=== PATIENT | female | born 1985 | race Caucasian/White ===

== ENCOUNTER → 2017-04-02 | Outpatient (CLI) | payer BC, SELFPAY | PROVIDERS: Visit Provider Nurse Practitioner Family | DX: R05 Cough | CPT/HCPCS: 71020; 87486; 87581; 87633; 87798 ==

== ENCOUNTER → 2017-09-04 10:41 | Outpatient (CLI) | payer BC, SELFPAY ==
[2017-09-04 13:44] LABS: Free T4 (Free Thyroxine) 1.17 ng/dl (0.76-1.46); T4 (Thyroxine) 11.6 ug/dl (4.7-13.3); Thyroid Stimulating Hormone 2.15 uIU/ml (0.358-3.740)
[2017-09-05 19:23] LABS: Triiodothyronine (T3) Free 3.5 pg/mL (2.0-4.4)
== END ==
PROVIDERS: PCP Physician Assistant; Visit Provider Internal Medicine Endocrinology, Diabetes & Metabolism
DX: E04.2 Nontoxic multinodular goiter (principal); E03.8 Other specified hypothyroidism; E06.3 Autoimmune thyroiditis
CPT/HCPCS: 36415; 84436; 84439; 84443; 84481

== ENCOUNTER → 2017-10-31 15:05 | Outpatient (CLI) | payer BC, SELFPAY ==
--- NOTE | 2017-10-31 15:15 | CT_ITS ---
CT sinus wo con CLINICAL HISTORY: Chronic sinusitis 3 years ITS.REASON: CHRONIC SINUSISTIS ORDERING PHYSICIAN: Senia Sands PATIENT AGE: 31 years COMPARISON:None TECHNIQUE: Axial, sagittal and coronal images are generated and reviewed. All CT scans at this facility use one or more dose reduction techniques, viz.: automated exposure control; ma/kV adjustment per patient size (including targeted exams where dose is matched to indication; i.e. head) or iterative reconstruction technique. PROCEDURE: IV Contrast: None FINDINGS: Bones: . The coronal images show the maxillary sinuses to be well-developed and clear. The ostiomeatal pathway is patent bilaterally. Frontal, sphenoid and maxillary sinuses are well-developed clear. Ethmoid air cells. -Focal moderate mucosal thickening posterior left ethmoid air cell . Only some scant scant mucosal thickening anterior right ethmoid region . There is mild deviation nasal septum convexity and septal spur to the left. A septal spur measures up to 4 mm. Encroaches upon the left nasal airway. Moderate-generous engorgement nasal turbinates bilaterally. The osseous facial bones are intact. Right and left TMJ intact. Upper C-spine unremarkable. . Orbits unremarkable. IMPRESSION:...... No air-fluid levels.... No prominent findings Only Minor observations paranasal sinuses Moderate mucosal thickening posterior left ethmoid air cell . Maxillary sinuses well-developed and clear..
== END ==
PROVIDERS: Family Provider Physician Assistant; PCP Physician Assistant; Visit Provider Nurse Practitioner
DX: J32.9 Chronic sinusitis, unspecified (principal)
CPT/HCPCS: 70486

== ENCOUNTER → 2018-08-18 08:39 | Outpatient (CLI) | payer BC, SELFPAY ==
--- NOTE | 2018-08-18 08:43 | XR_ITS ---
XR chest 2V HISTORY: ITS.REASON: BRONCHITIS ORDERING PHYSICIAN: Opal Jeronimo APRN PATIENT AGE: 32 years COMPARISON: 04/02/2017 FINDINGS: The cardiomediastinal silhouette and pulmonary vascularity are within normal limits. There is an irregular opacity in the left perihilar region at 12 x 8 mm possibly due to an area of scarring. This may be confirmed with CT. Probably unchanged from 04/02/2017. The remaining lungs are clear. IMPRESSION: Probable scarring in the left perihilar region, no acute finding.
== END ==
PROVIDERS: PCP Nurse Practitioner Family; Visit Provider Nurse Practitioner Family
DX: J20.9 Acute bronchitis, unspecified (principal)
CPT/HCPCS: 71046

== ENCOUNTER → 2018-09-03 10:04 | Outpatient (CLI) | payer BC, SELFPAY ==
--- NOTE | 2018-09-03 10:12 | CT_ITS ---
CT chest wo con HISTORY: ITS.REASON: BRONCHITIS,PULMONARY NODULES,ABN CXR ORDERING PHYSICIAN: Opal Jeronimo APRN PATIENT AGE: 32 years COMPARISON: 08/18/2018, 11/10/2015 Technique: Axial images obtained. Sagittal, and coronal reformatted images are also generated and reviewed. All CT scans at the facility use one or more dose reduction, viz: automated exposure control, ma/kV adjustment per patient size (including targeted exams where dose is matched to indication, i.e. head), or iterative reconstruction technique. FINDINGS: No mediastinal or hilar mass or adenopathy. The most inferior aspect of the right posterior costophrenic sulcus is excluded. Patchy density present in the left upper lobe. There is thickening of the left major fissure superiorly with some postinflammatory fibrotic changes in the left upper lobe. This had a more nodular contour on the previous study but now demonstrates some volume loss. Bronchial thickening is present with apparent occlusion subsegmental bronchus to the posterior aspect of the lingula. Previously noted nodularity along the major fissure has shown improvement.. The remaining lungs are clear. Upper abdominal images are unremarkable. No acute bony findings. IMPRESSION: 1. There are chronic changes in the left upper lobe. There is pleural thickening involving the left major fissure superiorly with some patchy density along the fissure which could be related to postinflammatory fibrotic change. Previously there were nodular areas in this region which have shown improvement 2. There is occlusion of a subsegmental bronchus to the inferior aspect of the lingula. This could be postinflammatory in nature. There is bronchial thickening in this area. Bronchoscopy may confirm the etiology of the occlusion. Follow-up is suggested. One cannot exclude the possibility of neoplasm.
== END ==
PROVIDERS: PCP Nurse Practitioner Family; Visit Provider Nurse Practitioner Family
DX: J20.9 Acute bronchitis, unspecified (principal); R91.8 Other nonspecific abnormal finding of lung field; R93.89 Abnormal findings on diagnostic imaging of other specified body structures
CPT/HCPCS: 71250

== ENCOUNTER → 2018-09-09 11:50 | Outpatient (CLI) | payer BC, SELFPAY ==
--- NOTE | 2018-09-09 11:52 | XR_ITS ---
XR elbow LT 2V HISTORY: Pain following injury ITS.REASON: 2 views ORDERING PHYSICIAN: Adenike Lechuga MD PATIENT AGE: 32 years COMPARISON: None FINDINGS: BONY STRUCTURES: No fracture or dislocation. No lytic or blastic change. Normal mineralization. SOFT TISSUES: Unremarkable. No radio opaque foreign bodies. No displaced fat pad. JOINT SPACE: Well-preserved. No significant arthritic changes evident. IMPRESSION: Negative elbow.
== END ==
PROVIDERS: PCP Nurse Practitioner Family; Visit Provider Orthopaedic Surgery
DX: M25.522 Pain in left elbow (principal)
CPT/HCPCS: 73070

== ENCOUNTER → 2018-09-30 13:02 | Outpatient (CLI) | payer BC, SELFPAY ==
--- NOTE | 2018-09-30 13:08 | XR_ITS ---
EXAM: Left wrist INDICATION: ITS.REASON: left wrist fx ORDERING PHYSICIAN: Adenike Lechuga MD PATIENT AGE: 32 years COMPARISON: 09/07/2018. TECHNIQUE: 3 views. Today's exam shows no fracture lines. The joint space, bone density and alignment of soft tissues are normal. Impression: Normal study. No evidence of acute fracture.
== END ==
PROVIDERS: PCP Nurse Practitioner Family; Visit Provider Orthopaedic Surgery
DX: S62.102A Fracture of unspecified carpal bone, left wrist, initial encounter for closed fracture (principal)
CPT/HCPCS: 73110

== ENCOUNTER 2018-09-30 13:42 | Outpatient (RCR) | payer BC, SELFPAY | END 2018-09-30 14:00 | disposition home or self-care (01) | LOC: OT 13:42 | PROVIDERS: Visit Provider Orthopaedic Surgery | DX: S52.552D Other extraarticular fracture of lower end of left radius, subsequent encounter for closed fracture with routine healing (principal) | CPT/HCPCS: 97763 ==

== ENCOUNTER → 2018-10-16 14:56 | Outpatient (CLI) | payer BC, SELFPAY ==
[2018-10-16 17:23] LABS: Free T4 (Free Thyroxine) 1.16 ng/dl (0.76-1.46); Thyroid Stimulating Hormone 2.31 uIU/ml (0.358-3.740)
[2018-10-18 22:52] LABS: Triiodothyronine (T3) Free 3.6 pg/mL (2.0-4.4)
== END ==
PROVIDERS: Visit Provider Internal Medicine Endocrinology, Diabetes & Metabolism
DX: E03.8 Other specified hypothyroidism (principal)
CPT/HCPCS: 36415; 84439; 84443; 84481

== ENCOUNTER 2019-09-21 18:31 | Emergency (ER) | payer BC, SELFPAY ==
[2019-09-21 18:32] VITALS: BP 157/91; PULSE 98; RESP 25; TEMP 36.7; O2SAT 100; BMI 40.7
--- NOTE | 2019-09-21 18:33 | HMH.EDGENADL ---
ED Disposition Clinical Impression: Peripheral edema Dyspnea Qualifiers: Dyspnea type: shortness of breath Qualified Code(s): R06.02 - Shortness of breath Disposition: Home, Self-Care Condition on Discharge: Good Instructions: DI for Shortness of Breath, DI for Peripheral Edema -- Bilateral Additional Instructions: Follow-up with your primary care provider, call tomorrow to make appointment Additional instructions for SHORTNESS OF BREATH: See your physician as soon as possible for further evaluation. Return immediately if worsening shortness of breath or if vomiting, chest pain, fever, coughing of blood, or passing out. Referrals: Provider,Referral, [Primary Care Provider] - - Critical Care Critical Care Time: No Attestation: On , the high probability of a clinically significant, sudden or life threatening deterioration of the following system(s) required my full and direct attention, intervention and personal management. The time I documented below is in addition to time spent performing reported procedures but includes the following listed in this critical care notation. Medical Decision Making - Medical Records Medical records reviewed: Yes: I reviewed the patient's medical records. - Michi Inquiry Pt receiving controlled substance: No Vital Signs: 09/21/19 18:32 09/21/19 19:09 Temperature 98.1 F Temperature Source Oral Pulse Rate [Right] 98 H 84 Respiratory Rate 25 H 18 Blood Pressure [Right Arm] 157/91 H 163/87 H Blood Pressure Mean [Right Arm] 113 112 02 Sat by Pulse Oximetry 100 100 Oxygen Delivery Method Room Air - Lab Data Lab results reviewed: Yes: I reviewed the patient's lab results. Lab Results 09/21/19 18:35: WBC 8.1, RBC 4.93, Hgb 13.8, Hct 39.6, MCV 80.3 L, MCH 28.0, MCHC 34.9, RDW 14.9, Plt Count 233, MPV 9.3, Neut % (Auto) 65.0, Lymph % (Auto) 29.0, [place] % (Auto) 4.4, Eos % (Auto) 1.3, Baso % (Auto) 0.3, Neut # (Auto) 5.3, Lymph # (Auto) 2.4, [place] # (Auto) 0.4, Eos # (Auto) 0.1, Baso # (Auto) 0.0 09/21/19 18:35: Sodium 138, Potassium 3.6, Chloride 98, Carbon Dioxide 29, Anion Gap 14.6, BUN 19 H, Creatinine 0.70, Estimated Creat Clear 211, Estimated GFR 96, Est GFR ( Amer) 116, Glucose 106 H, Calcium 9.8, Total Bilirubin 0.3, AST 31, ALT 28, Alkaline Phosphatase 105, Troponin I < 0.01, NT-Pro-B Natriuret Pep 63.1, Total Protein 8.4 H, Albumin 4.9, Globulin 3.5 H, Albumin/Globulin Ratio 1.4, TSH 3.28, Thyroxine (T4) 14.2 H 09/21/19 18:46: Urine Color Yellow, Urine Appearance Clear, Urine pH 6.0, Ur Specific [place] 1.025, Urine Protein Negative, Urine Glucose (UA) Negative, Urine Ketones Negative, Urine Blood Trace-l, Urine Nitrate Negative, Urine Bilirubin Negative, Urine Urobilinogen 0.2, Ur Leukocyte Esterase Negative Result diagrams: 09/21/19 18:35 09/21/19 18:35 Orders (Tests/Meds): ORDERS Category Date Time Status XR chest 2V Stat Exams 09/21/19 18:39 Taken Troponin I Q3H Lab 09/21/19 21:45 Ordered Troponin I Q3H Lab 09/22/19 00:45 Ordered Urinalysis and Microscopic Stat Lab 09/21/19 18:46 Results ECG Request by /Magal[facility] Stat Y 09/21/19 18:39 Ordered - ECG Data Tracing #1 EKG interpreted by Christopher Mohan MD: Rhythm: sinus Rate: 91 [place]: normal Ectopy: none Conduction: normal ST Segment Changes: none T Wave Changes: none Q Waves: none No evidence of acute ischemia or injury Normal electrocardiogram General Adult HPI - General Chief complaint: Shortness of Breath/Dyspnea Stated complaint: sob Time Seen by Provider: 09/21/19 18:33 - History of Present Illness HPI narrative: Complains of swelling of her legs, heaviness in the chest and shortness of breath. States that she has had problems with peripheral edema of both legs for a couple of years. Initially put on Lasix 20 mg, which was then increased to 40 mg, but she says it no longer has any effect. For the past 2 weeks she has had increased edema. She says sh
--- NOTE | 2019-09-21 18:39 | ECG_ITS ---
APPROVED REPORT Exam: Resting ECG HR:91 bpm ECG Measurements Heart Rate 91 AXES [place] 156 P 66 QRSd 80 QRS 9 QT 376 T 18 QTc 462 <Conclusion> Normal sinus rhythm Normal ECG Electronically signed by : Nando Hawkins, 09/22/2019 17:08:59
--- NOTE | 2019-09-21 18:39 | XR_ITS ---
PROCEDURE: XR CHEST 2V CLINICAL HISTORY: soa COMPARISON: CXR CHEST(2 VIEWS-NOT PORTABLE) from 11/06/2015 CXR CHEST(2 VIEWS-NOT PORTABLE) from 07/01/2016 CXR CHEST(2 VIEWS-NOT PORTABLE) from 04/02/[address] chest wo con from 09/03/2018 FINDINGS: The cardiomediastinal silhouette and pulmonary vascularity are within normal limits. The lungs are clear without infiltrates, suspicious nodules, or pleural effusions. No acute bony abnormalities. IMPRESSION: No acute findings. Dictated by: Dr. Cirilo Fuentes MD 09/22/2019 07:[address] Cirilo Fuentes MD in [place] 09/22/2019 07:14
[2019-09-21 18:45] LABS: Basophils % 0.3 % (0.1-2.0); Eosinophils # 0.1 K/mm3 (0.0-0.4); Eosinophils % 1.3 % (0.1-12.0); Hematocrit 39.6 % (37.0-47.0); Hemoglobin 13.8 g/dL (12.2-16.2); Lymphocytes # 2.4 K/mm3 (0.7-4.5); Mean Corpuscular HGB Conc 34.9 g/dL (31.8-35.4); Mean Corpuscular Volume 80.3 fl (81-99); Mean Platelet Volume 9.3 fl (7.4-10.4); Monocytes # 0.4 K/mm3 (0.1-1.0); Monocytes % 4.4 % (1.7-9.3); Neutrophils # 5.3 K/mm3 (1.8-7.8); Platelet Count 233 K/mm3 (142-424); Red Blood Count 4.93 M/mm3 (4.20-5.40); Red Cell Distribution Width 14.9 % (11.5-17.5); White Blood Count 8.1 K/mm3 (4.8-10.8)
[2019-09-21 18:50] LABS: Alanine Aminotransferase 28 U/L (12-78); Albumin Level 4.9 g/dl (3.5-5.0); Albumin/Globulin Ratio 1.4 (1.1-1.8); Alkaline Phosphatase 105 U/L (38-126); Anion Gap 14.6 mEq/L (5-15); Aspartate Amino Transferase 31 U/L (14-36); Bilirubin,Total 0.3 mg/dl (0.2-1.3); Blood Urea Nitrogen 19 mg/dl (7-17); Calcium 9.8 mg/dl (8.4-10.2); Carbon Dioxide 29 mmol/L (22.0-30.0); Chloride 98 mmol/L (98-107); Creatinine Clearance Estimated 211 mL/min (50-200); Estimated Glomerular Filt Rate 96 ml/min (>60); GFR (African American) 116 ML/MIN (>60); Globulin 3.5 g/dL (1.3-3.2); Glucose 106 mg/dl (74-100); Potassium 3.6 mmoL/L (3.5-5.1); Sodium 138 mmol/L (136-145); Total Protein,Serum 8.4 g/dl (6.3-8.2)
[2019-09-21 19:04] LABS: NT Pro Brain Natriuretic Pep. 63.1 pg/mL (0-125)
[2019-09-21 19:05] LABS: Microscopic, Urine URINE MICROSCOPIC (MICROSCOPIC)
[2019-09-21 19:08] LABS: T4 (Thyroxine) 14.2 ug/dl (5.53-11.0)
[2019-09-21 19:09] VITALS: BP 163/87; PULSE 84; RESP 18; O2SAT 100
[2019-09-21 19:12] LABS: Troponin I < 0.01 ng/ml (0.00-0.034)
[2019-09-21 19:14] LABS: Appearance,Urine CLEAR (Clear); Bilirubin,Urine Negative (Negative); Blood, Urine TRACE-L (Negative); Color,Urine YELLOW (Yellow); Glucose,Urine (UA) Negative (Negative); Ketones,Urine Negative (Negative); Leukocyte Esterase,Urine Negative (Negative); Nitrate,Urine Negative (Negative); Protein,Urine Negative (Negative); Specific Gravity, Urine 1.025 (1.005-1.030); Urobilinogen,Urine 0.2 EU/dl (0.2)
[2019-09-21 19:22] LABS: Thyroid Stimulating Hormone 3.28 uIU/mL (0.465-4.68)
[2019-09-21 19:33] LABS: Amorphous Sediment,Urine Trace /lpf; Squamous Epithelial Cell,Urine Occasional #/hpf (0-5); WBC,Urine Occasional #/hpf (0-3)
[2019-09-21 19:41] VITALS: BP 147/77; PULSE 84; RESP 16; TEMP 36.7; O2SAT 99
== END 2019-09-21 19:42 | disposition home or self-care (01) ==
PROVIDERS: Emergency Provider Emergency Medicine; PCP Nurse Practitioner Family
DX: R60.9 Edema, unspecified (principal); R06.02 Shortness of breath; E03.9 Hypothyroidism, unspecified; J45.909 Unspecified asthma, uncomplicated; Z79.899 Other long term (current) drug therapy
CPT/HCPCS: 71046; 80053; 81001; 83880; 84436; 84443; 84484; 85025; 93005; 99284

== ENCOUNTER → 2019-10-14 17:47 | Outpatient (CLI) | payer BC, SELFPAY ==
[2019-10-14 19:39] LABS: Free T4 (Free Thyroxine) 1.22 ng/dl (0.78-2.19)
[2019-10-14 19:52] LABS: Thyroid Stimulating Hormone 3.49 uIU/mL (0.465-4.68)
[2019-10-16 17:03] LABS: Triiodothyronine (T3) Free 3.2 pg/mL (2.0-4.4)
== END ==
PROVIDERS: Visit Provider Internal Medicine Endocrinology, Diabetes & Metabolism
DX: E04.2 Nontoxic multinodular goiter (principal); E03.8 Other specified hypothyroidism
CPT/HCPCS: 36415; 84439; 84443; 84481

== ENCOUNTER 2020-04-24 13:36 | Emergency (ER) | payer BC, SELFPAY ==
[2020-04-24 13:40] VITALS: BP 167/94; PULSE 91; RESP 14; TEMP 36.3; O2SAT 99; BMI 39.1
--- NOTE | 2020-04-24 14:14 | HMH.EDUTC ---
[facility] Disposition Clinical Impression: Encounter for laboratory testing for COVID-19 virus Sinusitis Qualifiers: Sinusitis location: unspecified location Chronicity: unspecified Qualified Code(s): J32.9 - Chronic sinusitis, unspecified Disposition: Home, Self-Care Condition on Discharge: Good Instructions: Sinusitis, DI for Sinusitis, DI for COVID-19 (Suspected or Confirmed ), Coronavirus Disease 2019, Preventing the Spread of Coronavirus Discharge Instructions Additional Instructions: *Monitor Temp, Over the counter Motrin or Tylenol as directed/as needed Tylenol every 4 hours and Motrin every 6 hours (as long as your family doctor has told you that you can take it) for fever or pain. and straight to ER if unable to lower temp less than 101.0 after medication given *Warm salt water gargles may help to soothe the throat *Throat Lozenges *Warm fluids like tea with honey may help to soothe the throat *Sleep elevated *Humidifier/Vaporizer Follow up IMMEDIATELY for new or worsening symptoms or no Noticeable improvement over the next 48-72 hours. 911 for difficulty breathing or swallowing You were tested for today for COVID19 your test result should be back in the next 24-48 hours, you may call to the [facility] to see if your test results are back in the next 48 hours [phone] [facility] hours are 9am-9pm You was given a handout with instructions for Self Quarantine and Self isolation for while you wait on test results and what to do if they are positive If you are positive the Health Dept will be contacting you also Prescriptions: Azithromycin [Z-Joseluis 250mg Tab] 250 mg PO DIRECTED #6 tab Transmission Status: Pending to [id number] Referrals: Opal Jeronimo APRN [Primary Care Provider] - As needed Forms: Work/School Release Time of Disposition: 14:16 Medical Decision Making - Michi Inquiry Pt receiving controlled substance: No Michi was queried for this patient: No Vital Signs: 04/24/20 13:40 Temperature 97.3 F L Temperature Source Oral Pulse Rate [Right Brachial] 91 H Respiratory Rate 14 Blood Pressure [Right Arm] 167/94 H Blood Pressure Mean [Right Arm] 118 Blood Pressure Source [Right Arm] Automatic Cuff Blood Pressure Position [Right Arm] Sitting 02 Sat by Pulse Oximetry 99 Oxygen Delivery Method Room Air Orders (Tests/Meds): ORDERS Category Date Time Status Covid-19 Nasal PCR Sendout P&C Routine Lab 04/24/20 13:50 Received Medical Decision Narrative: Patient state that she has taken azithromycin before without reactions or complications [facility] HPI - General Stated complaint: covid symptoms Time Seen by Provider: 04/24/20 14:14 Mode of Arrival: Ambulatory Source of Information: Patient Limitations: No Limitations Description of Symptoms (Recalled from Triage Doc. by RN): PATEINT C/O TIGHTNESS IN CHEST, BODY ACHES, CHILLS, SINUS PAIN AND PRESSURE SINCE . REPORTS THAT HER TESTED POSITIVE FOR COVID HEENT Symptoms (Recalled from RN notes): No Resp Symptoms (Recalled from RN notes): Yes Skin Symptoms (Recalled from RN notes): No MS Symptoms (Recalled from RN notes): No Functional Status (Recalled from RN notes): WNL - History of Present Illness Provider Complaint: Patient state that her recently tested positive for COVID States that she has been having cough, sore throat sinus pain and pressure along with body aches, chills and fever States that today she felt worse so she came in - Related Data Home Medications Medication Instructions Recorded Confirmed Furosemide [Furosemide 20mg Tab*] 20 mg PO DAILY 09/05/17 09/21/19 Levothyroxine Sodium [Synthroid 50 mcg PO DAILY 09/05/17 09/21/19 50mcg (0.05mg) tab] Escitalopram Oxalate [Lexapro] 10 mg PO DAILY 09/21/19 09/21/19 Levocetirizine Dihydrochloride 5 mg PO DAILY 09/21/19 09/21/19 [Xyzal] Montelukast Sodium [Singulair 10mg 10 mg PO PM 09/21/19 09/21/19 tablet] hydrOXYzine pamoate [[place]
[2020-04-24 14:22] VITALS: BP 167/94; PULSE 91; RESP 14; TEMP 36.3; O2SAT 99
[2020-04-26 10:15] LABS: Covid-19 Nasal PCR Sendout P&C POSITIVE
--- NOTE | 2020-04-26 10:44 | PC.NURSE ---
notified positive result
== END 2020-04-24 14:24 | disposition home or self-care (01) ==
PROVIDERS: Emergency Provider Nurse Practitioner; PCP Nurse Practitioner Family
DX: U07.1 COVID-19 (principal); J32.9 Chronic sinusitis, unspecified; J45.909 Unspecified asthma, uncomplicated
CPT/HCPCS: 99202; G0463; U0004

== ENCOUNTER 2020-05-02 12:47 | Emergency (ER) | payer BC, SELFPAY ==
[2020-05-02 12:47] VITALS: BP 135/79; PULSE 98; RESP 16; TEMP 37.2; O2SAT 94; BMI 39.1
--- NOTE | 2020-05-02 13:41 | XR_ITS ---
PROCEDURE: XR CHEST PORTABLE CLINICAL HISTORY: Covid COMPARISON: CR CXR CHEST(2 VIEWS-NOT PORTABLE) from 07/01/2016 CR CXR CHEST(2 VIEWS-NOT PORTABLE) from 04/02/[address] chest wo con from 09/03/2018 CR XR CHEST 2V from 09/21/2019 FINDINGS: The cardiomediastinal silhouette and pulmonary vascularity are within normal limits. The lungs are clear without infiltrates, suspicious nodules, or pleural effusions. No acute bony abnormalities. IMPRESSION: No acute findings. Dictated by: Renato Blanchard MD 05/02/2020 14:24 Renato Blanchard MD in [place] 05/02/2020 14:24
--- NOTE | 2020-05-02 13:50 | HMH.EDGENADL ---
ED Disposition Clinical Impression: COVID-19 virus infection Disposition: Home, Self-Care Condition on Discharge: Fair Instructions: DI for COVID-19 (Suspected or Confirmed ) Additional Instructions: Outpatient monoclonal antibody therapy as scheduled. Return to the emergency department if worsening shortness of breath, particularly if pulse ox is less than 94% at rest. Referrals: Opal Jeronimo APRN [Primary Care Provider] - - Critical Care Critical Care Time: No Attestation: On 05/02/20, the high probability of a clinically significant, sudden or life threatening deterioration of the following system(s) required my full and direct attention, intervention and personal management. The time I documented below is in addition to time spent performing reported procedures but includes the following listed in this critical care notation. Medical Decision Making - Michi Inquiry Pt receiving controlled substance: No Vital Signs: 05/02/20 12:47 Temperature 98.9 F Temperature Source Oral Pulse Rate [Right] 98 H Respiratory Rate 16 Blood Pressure [Right Arm] 135/79 Blood Pressure Mean [Right Arm] 97 Blood Pressure Source [Right Arm] Automatic Cuff Blood Pressure Position [Right Arm] Sitting 02 Sat by Pulse Oximetry 94 L Oxygen Delivery Method Room Air - Lab Data Lab Results 05/02/20 13:09: WBC 7.1, RBC 5.20, Hgb 14.4, Hct 43.4, MCV 83.6, MCH 27.7, MCHC 33.1, RDW 15.5, Plt Count 203, MPV 9.0, Neut % (Auto) 70.4, Lymph % (Auto) 23.7, [place] % (Auto) 4.2, Eos % (Auto) 1.2, Baso % (Auto) 0.5, Neut # (Auto) 5.0, Lymph # (Auto) 1.7, [place] # (Auto) 0.3, Eos # (Auto) 0.1, Baso # (Auto) 0.0 05/02/20 13:09: Sodium 138, Potassium 4.4, Chloride 100, Carbon Dioxide 30, Anion Gap 12.4, BUN 14, Creatinine 0.60, Estimated GFR 114, Est GFR ( Amer) 138, Glucose 92, Calcium 9.4, Total Bilirubin 0.5, AST 45 H, ALT 42, Alkaline Phosphatase 82, Troponin I < 0.01, Total Protein 7.9, Albumin 4.4, Globulin 3.5 H, Albumin/Globulin Ratio 1.3 05/02/20 13:09: Lactate 1.4 Result diagrams: 05/02/20 13:09 05/02/20 13:09 Orders (Tests/Meds): ORDERS Category Date Time Status Troponin I Q3H Lab 05/02/20 16:45 Ordered Troponin I Q3H Lab 05/02/20 19:45 Ordered Blood Culture Stat Micro 05/02/20 13:09 Received - Radiology Data #1 Image(s): Chest Image Reviewed: Yes I have reviewed radiologist's interpretation PROCEDURE: XR CHEST PORTABLE CLINICAL HISTORY: Covid COMPARISON: CR CXR CHEST(2 VIEWS-NOT PORTABLE) from 07/01/2016 CR CXR CHEST(2 VIEWS-NOT PORTABLE) from 04/02/[address] chest wo con from 09/03/2018 CR XR CHEST 2V from 09/21/2019 FINDINGS: The cardiomediastinal silhouette and pulmonary vascularity are within normal limits. The lungs are clear without infiltrates, suspicious nodules, or pleural effusions. No acute bony abnormalities. IMPRESSION: No acute findings. Dictated by: Rneato Blanchard MD 05/02/2020 14:24 Renato Blanchard MD in [place] 05/02/2020 14:24 Medical Decision Narrative: Pulse ox 98% on room air with a clear chest x-ray. She does not meet criteria for admission at this time. She meets criteria for monoclonal antibody therapy based on BMI. She says she is interested in this and Liz will talk to her about scheduling it. General Adult HPI - General Stated complaint: covid postive, soa, chest tightness Time Seen by Provider: 05/02/20 13:51 - History of Present Illness HPI narrative: The patient has COVID-19. She has been symptomatic for 10 days, positive test was obtained 8 days ago. She says she caught it from her who is currently at home on oxygen for the past week after hospitalization for 1 day. He has been symptomatic approximately 21 days. She says that she feels like she is getting worse instead of better. She is weak. She says that she is starting to get short of breath at times. She says her oxygen saturation is good while
[2020-05-02 13:57] LABS: Basophils % 0.5 % (0.1-2.0); Eosinophils # 0.1 K/mm3 (0.0-0.4); Eosinophils % 1.2 % (0.1-12.0); Hematocrit 43.4 % (37.0-47.0); Hemoglobin 14.4 g/dL (12.2-16.2); Lymphocytes # 1.7 K/mm3 (0.7-4.5); Lymphocytes % 23.7 % (10-50); Mean Corpuscular HGB Conc 33.1 g/dL (31.8-35.4); Mean Corpuscular Hemoglobin 27.7 pg (27.0-31.2); Mean Corpuscular Volume 83.6 fl (81-99); Monocytes # 0.3 K/mm3 (0.1-1.0); Monocytes % 4.2 % (1.7-9.3); Neutrophils % 70.4 % (37.0-80.0); Platelet Count 203 K/mm3 (142-424); Red Cell Distribution Width 15.5 % (11.5-17.5); White Blood Count 7.1 K/mm3 (4.8-10.8)
[2020-05-02 14:00] LABS: Alanine Aminotransferase 42 U/L (12-78); Albumin Level 4.4 g/dl (3.5-5.0); Albumin/Globulin Ratio 1.3 (1.1-1.8); Alkaline Phosphatase 82 U/L (38-126); Anion Gap 12.4 mEq/L (5-15); Aspartate Amino Transferase 45 U/L (14-36); Bilirubin,Total 0.5 mg/dl (0.2-1.3); Blood Urea Nitrogen 14 mg/dl (7-17); Calcium 9.4 mg/dl (8.4-10.2); Carbon Dioxide 30 mmol/L (22.0-30.0); Chloride 100 mmol/L (98-107); Estimated Glomerular Filt Rate 114 ml/min (>60); GFR (African American) 138 ML/MIN (>60); Globulin 3.5 g/dL (1.3-3.2); Glucose 92 mg/dl (74-100); Potassium 4.4 mmoL/L (3.5-5.1); Sodium 138 mmol/L (136-145); Total Protein,Serum 7.9 g/dl (6.3-8.2)
[2020-05-02 14:13] LABS: Troponin I < 0.01 ng/ml (0.00-0.034)
[2020-05-02 14:31] LABS: Lactic Acid 1.4 mmol/L (0.7-2.1)
[2020-05-02 16:09] VITALS: BP 124/70; PULSE 95; RESP 16; TEMP 36.9; O2SAT 98
== END 2020-05-02 16:19 | disposition home or self-care (01) ==
PROVIDERS: Emergency Provider Emergency Medicine; PCP Nurse Practitioner Family
DX: U07.1 COVID-19 (principal)
CPT/HCPCS: 71045; 80053; 83605; 84484; 85025; 87040; 99283

== ENCOUNTER 2020-05-05 07:54 | Outpatient (CLI) | payer BC, SELFPAY ==
[2020-05-05] VITALS (9 sets, daily range): BP systolic 114–151; BP diastolic 75–96; PULSE 63–73; RESP 16–20; TEMP 36.6–37.1; O2SAT 95–100
--- NOTE | 2020-05-05 11:09 | PC.NURSE ---
Pt denies any issues at this time and tolerated infusion well at this time.
== END 2020-05-05 10:55 | disposition home or self-care (01) ==
PROVIDERS: PCP Nurse Practitioner Family; Visit Provider Emergency Medicine
DX: U07.1 COVID-19 (principal)
CPT/HCPCS: 96365

== ENCOUNTER → 2020-05-22 11:04 | Outpatient (CLI) | payer BC, SELFPAY ==
--- NOTE | 2020-05-22 12:07 | CT_ITS ---
PROCEDURE: CT ANGIO CHEST CLINCIAL INDICATION: BRONCHITIS, NOT SPECIFIED ACUTE OR CHRONIC COVID April 2020, shortness of air, chest, COMPARISON: CT CHESTWO CT chest wo con from 09/03/2018 TECHNIQUE: IV Contrast: 70ML Isovue 370 Axial images obtained with sagittal and coronal reformats. All CT scans at the facility use one or more dose reduction, viz: automated exposure control, ma/kV adjustment per patient size (including targeted exams where dose is matched to indication, i.e. head), or iterative reconstruction technique. FINDINGS: Is incidentally noted pleural parenchymal scarring and calcification along the left major fissure. The airways are clear. Reported occluded lingular bronchus on prior study is widely patent on the current study. There is no infiltrate. There are no suspicious lung nodules. There is no pleural effusion. There is no suspicious thoracic adenopathy. There is no pulmonary embolus or other vascular abnormality. There is no pericardial effusion. There is severe low-density of the liver. This likely is secondary to diffuse fatty infiltration which is a nonspecific finding with multiple etiologies including dietary causes. There is moderate splenic enlargement for patient of this age. Less likely, the hepatic appearance could be caused by edema such as that related to early hepatitis. There is no adjacent edema or surrounding stranding surrounding fat which would support a diagnosis of acute hepatitis. Visualized portions of the solid abdominal organs are otherwise unremarkable. Visualized portions of the GI tract are unremarkable. There is a circumaortic left renal vein. This could be a source of left renal flank pain and hematuria. No structures are unremarkable IMPRESSION: On current study the lungs are clear and airways are clear. There is severe fatty infiltration of the liver and associated splenomegaly. See further description above. There is a circumaortic left renal vein which can be a source of left flank pain and hematuria. Dictated by: Whitley Monahan 05/22/2020 18:32 Whitley Monahan in [place] 05/22/2020 18:32
== END ==
PROVIDERS: PCP Nurse Practitioner Family; Visit Provider Nurse Practitioner Family
DX: J40 Bronchitis, not specified as acute or chronic (principal); Z86.16 Personal history of COVID-19; R06.02 Shortness of breath
CPT/HCPCS: 71275; Q9967

== ENCOUNTER → 2020-05-26 08:35 | Outpatient (CLI) | payer BC, SELFPAY ==
[2020-05-26 09:26] LABS: Basophils # 0.1 K/mm3 (0-0.2); Basophils % 0.5 % (0.1-2.0); Eosinophils # 0.1 K/mm3 (0.0-0.4); Eosinophils % 0.8 % (0.1-12.0); Hematocrit 43.3 % (37.0-47.0); Hemoglobin 14.1 g/dL (12.2-16.2); Lymphocytes # 2.4 K/mm3 (0.7-4.5); Lymphocytes % 25.4 % (10-50); Mean Corpuscular HGB Conc 32.5 g/dL (31.8-35.4); Mean Corpuscular Hemoglobin 27.3 pg (27.0-31.2); Mean Corpuscular Volume 84.2 fl (81-99); Monocytes # 0.4 K/mm3 (0.1-1.0); Monocytes % 4.2 % (1.7-9.3); Neutrophils # 6.6 K/mm3 (1.8-7.8); Platelet Count 226 K/mm3 (142-424); Red Blood Count 5.14 M/mm3 (4.20-5.40); Red Cell Distribution Width 15.2 % (11.5-17.5); White Blood Count 9.5 K/mm3 (4.8-10.8)
[2020-05-26 09:52] LABS: INR 0.95 (0.9-1.1); Prothrombin Time 10.6 seconds (9.4-11.8)
[2020-05-26 09:53] LABS: Alanine Aminotransferase 38 U/L (12-78); Alkaline Phosphatase 88 U/L (38-126); Aspartate Amino Transferase 32 U/L (14-36); Bilirubin,Direct 0.1 mg/dl (0.0-0.4); Bilirubin,Indirect 0.4 mg/dL (0.0-0.9); Bilirubin,Total 0.5 mg/dl (0.2-1.3); Bilirubin,Unconjugated 0.5 mg/dL (0.0-1.1); Iron 90 ug/dL (37-170)
[2020-05-26 09:54] LABS: Albumin Level 4.5 g/dl (3.5-5.0); Total Protein,Serum 7.6 g/dl (6.3-8.2)
[2020-05-26 10:03] LABS: Total Iron Binding Capacity 351 ug/dL (265-497)
[2020-05-26 10:10] LABS: Hemoglobin A1C 5.2 % (4.0-6.0); Triiodothryronine (T3) Uptake 27 % (23.5-40.5)
[2020-05-26 10:11] LABS: 25-OH Vitamin D, Total 14.3 ng/mL (30-100); Free Thyroxine Index 3.3 ug/dL (5.93-13.13); T4 (Thyroxine) 12.3 ug/dl (5.53-11.0)
[2020-05-26 10:25] LABS: Thyroid Stimulating Hormone 4.45 uIU/mL (0.465-4.68)
[2020-05-26 10:46] LABS: Vitamin B12 279 pg/mL (239-931)
[2020-05-27 16:12] LABS: Hep A Ab, IgM Negative (Negative); Hepatitis B Core Antibody IgM Negative (Negative); Hepatitis B Surface Antigen Negative (Negative)
[2020-05-27 16:23] LABS: Folate 4.72 ng/mL
[2020-05-28 01:06] LABS: Hepatitis C Antibody <0.1 s/co ratio (0.0-0.9)
== END ==
PROVIDERS: Visit Provider Nurse Practitioner Family
DX: K76.0 Fatty (change of) liver, not elsewhere classified (principal); R16.1 Splenomegaly, not elsewhere classified; R53.82 Chronic fatigue, unspecified; Z86.2 Personal history of diseases of the blood and blood-forming organs and certain disorders involving the immune mechanism
CPT/HCPCS: 36415; 80074; 80076; 82306; 82607; 82746; 83036; 83540; 83550; 84436; 84443; 84479; 85025; 85610

== ENCOUNTER 2020-06-13 11:10 | Emergency (ER) | payer BC, SELFPAY ==
[2020-06-13] VITALS (9 sets, daily range): BP systolic 134–150; BP diastolic 70–92; PULSE 77–90; RESP 16–20; TEMP 36.6–36.7; O2SAT 98–100; BMI 39.1
--- NOTE | 2020-06-13 11:06 | ECG_ITS ---
APPROVED REPORT Exam: Resting ECG HR:86 bpm ECG Measurements Heart Rate 86 AXES [place] 158 P 48 QRSd 84 QRS 0 QT 380 T 15 QTc 454 Conclusion Normal sinus rhythm Left atrial abnormality Borderline ECG Electronically signed by : Nando Hawkins, 06/13/2020 14:46:28
--- NOTE | 2020-06-13 11:20 | XR_ITS ---
PROCEDURE: XR CHEST 2V CLINICAL HISTORY: palpitations COMPARISON: CR CXR CHEST(2 VIEWS-NOT PORTABLE) from 04/02/2017 CR XR CHEST 2V from 09/21/2019 CR XR CHEST PORTABLE from 05/02/[address] ANGIO CHEST from 05/22/2020 FINDINGS: The cardiomediastinal silhouette and pulmonary vascularity are within normal limits. The lungs are clear without infiltrates, suspicious nodules, or pleural effusions. Postsurgical changes on the left with suture line in the left midlung. No acute bony findings. IMPRESSION: No acute findings. Dictated by: Renato Blanchard MD 06/13/2020 13:11 Renato Blanchard MD in [place] 06/13/2020 13:11
--- NOTE | 2020-06-13 11:30 | HMH.EDCP ---
ED Disposition Clinical Impression: Atypical chest pain, History of COVID-19 Dyspnea Qualifiers: Dyspnea type: unspecified Qualified Code(s): R06.00 - Dyspnea, unspecified Disposition: Home, Self-Care Condition on Discharge: Fair Instructions: DI for Shortness of Breath, DI for COVID-19 (Suspected or Confirmed ) Additional Instructions: You have been evaluated for shortness of breath. Possibly due to recent Covid infection. Your inflammatory markers are elevated. Please follow-up with your family life counselor as well as cardiology jaquelin results of echocardiogram. Return to the emergency department for any new or worsening symptoms. Referrals: PCP,No [Non-Staff] - Westley Vergara MD [Staff Physician] - Time of Disposition: 15:40 - Critical Care Critical Care Time: No Attestation: On 06/13/20, the high probability of a clinically significant, sudden or life threatening deterioration of the following system(s) required my full and direct attention, intervention and personal management. The time I documented below is in addition to time spent performing reported procedures but includes the following listed in this critical care notation. Medical Decision Making - Medical Records Medical records reviewed: Yes: I reviewed the patient's medical records. - Michi Inquiry Pt receiving controlled substance: No Vital Signs: 06/13/20 11:10 06/13/20 11:31 06/13/20 11:44 Temperature 98.0 F Temperature Source Oral Pulse Rate [Right Radial] 90 79 77 Respiratory Rate 16 Blood Pressure [Right Arm] 144/90 H 140/82 136/81 Blood Pressure Mean [Right Arm] 108 101 99 Blood Pressure Source [Right Arm] Automatic Cuff Automatic Cuff Automatic Cuff Blood Pressure Position [Right Arm] Sitting Sitting Sitting 02 Sat by Pulse Oximetry 99 99 100 Oxygen Delivery Method Room Air Room Air Room Air 06/13/20 12:10 06/13/20 13:09 06/13/20 15:00 Temperature Temperature Source Pulse Rate [Right Radial] 85 84 84 Respiratory Rate Blood Pressure [Right Arm] 150/91 H 143/87 H 140/92 H Blood Pressure Mean [Right Arm] 110 105 108 Blood Pressure Source [Right Arm] Automatic Cuff Automatic Cuff Automatic Cuff Blood Pressure Position [Right Arm] Sitting Sitting Sitting 02 Sat by Pulse Oximetry 100 100 100 Oxygen Delivery Method Room Air Room Air Room Air 06/13/20 15:30 Temperature Temperature Source Pulse Rate [Right Radial] 81 Respiratory Rate Blood Pressure [Right Arm] 134/70 Blood Pressure Mean [Right Arm] 91 Blood Pressure Source [Right Arm] Automatic Cuff Blood Pressure Position [Right Arm] Sitting 02 Sat by Pulse Oximetry 99 Oxygen Delivery Method Room Air - Lab Data Lab Results 06/13/20 11:15: WBC 6.8, RBC 5.04, Hgb 13.9, Hct 42.4, MCV 84.1, MCH 27.6, MCHC 32.8, RDW 15.1, Plt Count 222, MPV 9.1, Neut % (Auto) 68.4, Lymph % (Auto) 26.0, [place] % (Auto) 3.8, Eos % (Auto) 1.1, Baso % (Auto) 0.7, Neut # (Auto) 4.7, Lymph # (Auto) 1.8, [place] # (Auto) 0.3, Eos # (Auto) 0.1, Baso # (Auto) 0.1 06/13/20 11:15: Sodium 139, Potassium 4.5, Chloride 104, Carbon Dioxide 29, Anion Gap 10.5, BUN 13, Creatinine 0.60, Estimated Creat Clear 234, Estimated GFR 114, Est GFR ( Amer) 138, Glucose 106 H, Calcium 9.6, Troponin I < 0.01 06/13/20 11:15: D-Dimer 0.89 H 06/13/20 11:15: Ferritin 25.4, C-Reactive Protein 11.2 H 06/13/20 11:29: VBG pH 7.34, VBG pCO2 45.4, VBG pO2 36.0, VBG HCO3 24.2, VBG Total CO2 25.6, VBG O2 Saturation 68.4, VBG Base Excess -1.5 06/13/20 12:45: Urine HCG, Qual Negative Result diagrams: 06/13/20 11:15 06/13/20 11:15 Orders (Tests/Meds): ED MEDICATIONS Discontinued Medications Generic Name Dose Route Start Last Admin Trade Name Freq PRN Reason Stop Dose Admin Aspirin 325 mg 06/13/20 11:35 06/13/20 11:49 Aspirin 325mg Tablet PO 06/13/20 11:36 325 mg ONCE ONE Administration Iopamidol 70 ml 06/13/20 13:59 06/13/20 14:00 Iopamidol-370 (76%);100ml Bottle IV 06/13/20 14:00 70
[2020-06-13 11:31] LABS: Basophils # 0.1 K/mm3 (0-0.2); Basophils % 0.7 % (0.1-2.0); Eosinophils # 0.1 K/mm3 (0.0-0.4); Eosinophils % 1.1 % (0.1-12.0); Hematocrit 42.4 % (37.0-47.0); Hemoglobin 13.9 g/dL (12.2-16.2); Lymphocytes # 1.8 K/mm3 (0.7-4.5); Mean Corpuscular HGB Conc 32.8 g/dL (31.8-35.4); Mean Corpuscular Hemoglobin 27.6 pg (27.0-31.2); Mean Corpuscular Volume 84.1 fl (81-99); Mean Platelet Volume 9.1 fl (7.4-10.4); Monocytes # 0.3 K/mm3 (0.1-1.0); Monocytes % 3.8 % (1.7-9.3); Neutrophils # 4.7 K/mm3 (1.8-7.8); Neutrophils % 68.4 % (37.0-80.0); Platelet Count 222 K/mm3 (142-424); Red Blood Count 5.04 M/mm3 (4.20-5.40); Red Cell Distribution Width 15.1 % (11.5-17.5); White Blood Count 6.8 K/mm3 (4.8-10.8)
[2020-06-13 11:39] LABS: Chloride 104 mmol/L (98-107); Potassium 4.5 mmoL/L (3.5-5.1); Sodium 139 mmol/L (136-145)
[2020-06-13 11:42] LABS: Anion Gap 10.5 mEq/L (5-15); Blood Urea Nitrogen 13 mg/dl (7-17); Calcium 9.6 mg/dl (8.4-10.2); Carbon Dioxide 29 mmol/L (22.0-30.0); Creatinine Clearance Estimated 234 mL/min (50-200); Estimated Glomerular Filt Rate 114 ml/min (>60); GFR (African American) 138 ML/MIN (>60); Glucose 106 mg/dl (74-100)
[2020-06-13 11:59] LABS: Troponin I < 0.01 ng/ml (0.00-0.034)
[2020-06-13 12:01] LABS: C-Reactive Protein 11.2 mg/L (0-4); D-Dimer 0.89 ug/mL (0.0-0.5)
--- NOTE | 2020-06-13 12:04 | CA_ITS ---
APPROVED REPORT EXAM: Comprehensive 2D, Doppler, and color-flow Echocardiogram Radial Drill Operator For Plastic: Caroline Majano, RCS, RVS Ht: 5 ft 7 in Wt: 250lbs BSA: 2.22 BP: 143/87 mmHg Indications: cp, palpitations 2D Dimensions IVSd 0.83 cm LVEF (Visual) 57.70 % PWd 0.82 cm LA Volume 35.70 mL LVDd 4.77 cm LA Volume Index [id number] mL/m2 (M/F) 16-34 LVDs 3.32 cm LVOT 1.92 cm (M/F) 1.5-2.5 M-Mode Dimensions LA Diam 4.16 cm (1.9-4.0) Ao Diam 2.91 cm (2.0-3.7) EPSs 0.36 cm TAPSE 2.06 (<1.7) LV Diastology E Decel Time 120.00 (160-240 msec) E/A Ratio 1.29 MED E' 12.00 (< 7 cm/sec) MED A' 11.80 cm/s E'/MED E' Ratio 7.41 (>14) LAT E' 10.80 (<10 cm/sec) LAT A' 10.20 cm/s E/LAT E' Ratio 8.23 (>14) Aortic Valve LVOT Max 111.00 (70-110 cm/s) LVOT VTI 20.38 cm AoV Peak Ankit. 144.00 (50-130 cm/s) AO Peak GR. 8.30 mmHg AO Mean GR. 4.50 (<5 mmHg) AO VTI 27.07 (18-25 cm) DAVID (VTI) 2.18 (2.5-4.5 cm2) Mitral Valve MV A Velocity 69.00 (40-130 cm/s) E/A Ratio 1.29 MV Decel. Time 120.00 (160-240 ms) Pulmonary Valve PV Peak Velocity 88.00 (50-150 cm/s) Tricuspid Valve TR P. Velocity 126.00 cm/s Left Ventricle Left atrium is normal size, left ventricle is normal size, there is no concentric left ventricular hypertrophy, visually estimated ejection fraction 55% with no regional wall motion abnormality, diastolic parameters are within normal range. Right Ventricle Right atrium and right ventricle are normal size and contractility. Aortic Valve Aortic valve is grossly normal, there is no aortic stenosis or aortic insufficiency. Mitral Valve Mitral valve is grossly normal, there is trace mitral regurgitation. Tricuspid Valve Tricuspid valve is grossly normal, there is trace tricuspid regurgitation, tricuspid regurgitation jet velocity is inadequate for calculation of the right ventricular systolic pressure. Pulmonic Valve Pulmonic valve is poorly visualized. Great Vessels Aortic root is normal size. Pericardium No significant pericardial effusion noted. Conclusion 1. Normal left ventricular size, preserved left ventricular systolic function, visually estimated ejection fraction 55% with no regional wall motion abnormality, diastolic parameters are within normal range. 2. Trace mitral and tricuspid regurgitation. 3. No significant pericardial effusion noted. Electronically signed by : Westley Vergara, 06/13/2020 20:08:40
--- NOTE | 2020-06-13 12:23 | CT_ITS ---
PROCEDURE: CT ANGIO CHEST CLINCIAL INDICATION: short of breath, elevated d dimer COMPARISON: CT CT ANGIO CHEST from 05/22/2020 TECHNIQUE: IV Contrast: 70ML Isovue 370 Axial images obtained with sagittal and coronal reformats. All CT scans at the facility use one or more dose reduction, viz: automated exposure control, ma/kV adjustment per patient size (including targeted exams where dose is matched to indication, i.e. head), or iterative reconstruction technique. FINDINGS: There is a mild degree of motion artifact which does obscure fine detail. Pulmonary arterial opacification with somewhat limited therefore, the study was repeated but with no additional benefit. No central pulmonary embolus is evident. Peripheral pulmonary arteries are not well delineated. No evidence of aortic aneurysm. No mediastinal or hilar mass or adenopathy. There are postsurgical changes with suture line in the left upper lobe with some scarring in this area similar to the previous exam Fatty liver. Splenomegaly at 15 cm. IMPRESSION: No acute finding Dictated by: Renato Blanchard MD 06/13/2020 14:34 Renato Blanchard MD in [facility] 06/13/2020 14:34
[2020-06-13 12:24] LABS: VBG Base Excess -1.5 mmol/L (-2.4-2.3); VBG HCO3 24.2 mmol/L (23-30); VBG Oxygen Saturation 68.4 % (50-70); VBG PCO2 45.4 mmol/L (35-51); VBG PH 7.34 mmol/L (7.31-7.41); VBG Total CO2 25.6 mmol/L (23-27)
[2020-06-13 12:33] LABS: Ferritin 25.4 ng/ml (6.24-137)
[2020-06-13 12:59] LABS: Urine Pregnancy, HCG Qual. Negative (Negative)
--- NOTE | 2020-06-13 13:06 | PC.NURSE ---
Echo lab at bedside
--- NOTE | 2020-06-13 13:40 | PC.NURSE ---
Pt to rad at this time.
--- NOTE | 2020-06-13 15:44 | ECG_ITS ---
APPROVED REPORT Exam: Resting ECG HR:81 bpm ECG Measurements Heart Rate 81 AXES AK 182 P 54 QRSd 80 QRS 9 QT 392 T 5 QTc 455 Conclusion Normal sinus rhythm Possible Left atrial enlargement Borderline ECG Electronically signed by : Nando Hawkins, 06/15/2020 08:40:13
[2020-06-13 16:10] LABS: Troponin I < 0.01 ng/ml (0.00-0.034)
== END 2020-06-13 16:16 | disposition home or self-care (01) ==
PROVIDERS: Emergency Provider Emergency Medicine; PCP Nurse Practitioner Family
DX: R07.89 Other chest pain (principal); Z86.16 Personal history of COVID-19; J45.909 Unspecified asthma, uncomplicated; B39.9 Histoplasmosis, unspecified; F41.8 Other specified anxiety disorders; Z79.899 Other long term (current) drug therapy
CPT/HCPCS: 71046; 71275; 80048; 81025; 82533; 82728; 82803; 84484; 85025; 85378; 86140; 93005; 93306; 99283; Q9967

== ENCOUNTER → 2020-06-27 15:29 | Outpatient (CLI) | payer BC, SELFPAY | PROVIDERS: PCP Nurse Practitioner Family; Visit Provider Nurse Practitioner Family | DX: R06.00 Dyspnea, unspecified (principal); R07.89 Other chest pain; R00.2 Palpitations; J45.909 Unspecified asthma, uncomplicated; Z82.49 Family history of ischemic heart disease and other diseases of the circulatory system; Z86.16 Personal history of COVID-19 | CPT/HCPCS: 93270 ==

== ENCOUNTER → 2020-06-30 11:39 | Outpatient (CLI) | payer BC, SELFPAY ==
[2020-06-30 15:59] LABS: Monoscreen (Rapid) Positive (Negative)
== END ==
PROVIDERS: Visit Provider Nurse Practitioner Family
DX: R53.83 Other fatigue (principal)
CPT/HCPCS: 36415; 86318

== ENCOUNTER → 2020-07-04 09:48 | Outpatient (CLI) | payer BC, SELFPAY ==
--- NOTE | 2020-07-04 09:48 | CA_ITS ---
APPROVED REPORT Exam: Exercise Treadmill Technologist: Zaida Carey Ht: 5 ft 7 in Wt: 264 lbs BSA: 2.28 m2 HR: 97 bpm BP: 126/74 mmHg Indications: Chest pain, Palpitations Medical History Medications: Furosemide (LASIX),,,,, Escitalopram,,,,, Dulera,,,,, Montelukast,,,,, Levocetirizine,,,,, Levothyoxine,,,,, Hydroxyzine pamoate,,,,, Stress Test Details Test: Lenard HR Resting HR: 101 bpm Max Heart Rate (APMHR): 185.183753 bpm Max HR Achieved: 169 bpm Target HR (85% APMHR): 157.509667 bpm % of APMHR: 91.35 Recovery HR: 105 bpm BP Resting BP: 126.0/74.0 mmHg Max BP: 192.0/78.0 mmHg Recovery BP: 131.0/86.0 mmHg ECG Resting ECG: Normal sinus rhythm, early repolarization changes Clinical Exercise duration: 06:00 min Highest Stage Achieved: Exercise capacity: 7.0 METs Stress ECG Conclusion Patient exercised 6:00 on Lenard Protocol. Test stopped due to shortness of air, fatigue, and patients request. Symptoms: Shortness of air and chest tightness. Arrhythmias/Ectopy: None ST-T Changes: Normal ST response to exercise. Conclusion: Normal GXT. GXT only (no imaging). Test Summary RECOVERY 01:00 0.0 0.0 156 . 192/ 78 . chest tightness REST . . . . . . . Standing REST 07:18 0.0 0.0 101 . 126/ 74 . . Stage 1 01:00 10.0 1.7 128 . . . . Stage 1 02:00 10.0 1.7 142 . . . . Stage 1 03:00 10.0 1.7 152 . 164/ 78 . . Stage 2 01:00 12.0 2.5 162 . . . . Stage 2 02:00 12.0 2.5 167 . . . . Stage 2 03:00 12.0 2.5 168 . . . Stop exercise at 06:00 RECOVERY . . . . . . . chest tightness RECOVERY 01:00 0.0 0.0 156 . 192/ 78 . . RECOVERY 02:00 0.0 0.0 133 . 192/ 78 . . RECOVERY 03:00 0.0 0.0 120 . 192/ 78 . . RECOVERY 04:00 0.0 0.0 117 . 154/ 79 . . RECOVERY 05:00 0.0 0.0 108 . 154/ 79 . . RECOVERY 05:30 0.0 0.0 103 . 131/ 86 . . Electronically signed by : Westley Vergara, 07/04/2020 17:19:20
== END ==
PROVIDERS: PCP Nurse Practitioner Family; Visit Provider Nurse Practitioner Family
DX: R07.89 Other chest pain (principal); R06.00 Dyspnea, unspecified; J45.909 Unspecified asthma, uncomplicated; Z82.49 Family history of ischemic heart disease and other diseases of the circulatory system; Z86.16 Personal history of COVID-19
CPT/HCPCS: 93017

== ENCOUNTER → 2020-07-13 06:21 | Outpatient (CLI) | payer BC, SELFPAY ==
[2020-07-13 06:45] VITALS: BMI 39.1
[2020-07-13 06:51] VITALS: BP 159/92; PULSE 91; RESP 18; TEMP 36.3; O2SAT 98
== END ==
PROVIDERS: PCP Nurse Practitioner Family; Visit Provider Nurse Practitioner Family
DX: R07.9 Chest pain, unspecified (principal); R00.2 Palpitations

== ENCOUNTER → 2020-07-26 06:17 | Outpatient (CLI) | payer BC, SELFPAY ==
[2020-07-26 07:11] VITALS: BMI 40.7
[2020-07-26 07:26] VITALS: BP 131/76; PULSE 97; RESP 18; TEMP 36.7; O2SAT 99
--- NOTE | 2020-07-26 09:04 | CT_ITS ---
PROCEDURE: CT CHEST W CON CLINCAL INDICATION: chest pain With SOA COMPARISON: CT [facility] CT CHEST W/O CONTRAST from 11/10/[address] ANGIO CHEST from 06/13/2020 TECHNIQUE: IV Contrast: 75ml Isovue 370 Axial images obtained with sagittal and coronal reformats. All CT scans at the facility use one or more dose reduction, viz: automated exposure control, ma/kV adjustment per patient size (including targeted exams where dose is matched to indication, i.e. head), or iterative reconstruction technique. FINDINGS: HEART AND MEDIASTINAL STRUCTURES: No evidence of aortic aneurysm or dissection. No evidence of central pulmonary embolus. Peripheral pulmonary arteries are not well opacified. The right coronary artery originates from the right cusp and the left main coronary artery originates from the left cusp as expected. The isthmus of the thyroid gland is somewhat prominent LUNGS AND PLEURAL SPACES: 2 mm nodules present in the right upper lobe posteriorly which is stable compared to the previous exam. Postsurgical changes left upper lobe posteriorly which appears stable. There is some mild bronchial wall thickening in this region. BONY STRUCTURES: No acute bony abnormalities apparent. UPPER ABDOMEN: Fatty liver. There is hepatosplenomegaly. The spleen measures 15 cm in AP dimension. ADDITIONAL FINDINGS: No other significant abnormalities. IMPRESSION: 1. No change with no acute finding. 2. Fatty liver with hepatosplenomegaly Dictated by: Renato Blanchard MD 07/27/2020 13:02 Renato Blanchard MD in [facility] 07/27/2020 13:02
== END ==
PROVIDERS: PCP Nurse Practitioner Family; Visit Provider Urology
DX: R06.00 Dyspnea, unspecified (principal); R07.89 Other chest pain; R00.2 Palpitations; J45.909 Unspecified asthma, uncomplicated; Z82.49 Family history of ischemic heart disease and other diseases of the circulatory system; Z86.16 Personal history of COVID-19
CPT/HCPCS: 71260; Q9967

== ENCOUNTER → 2020-08-21 13:07 | Outpatient (POV) | payer BC, SELFPAY | PROVIDERS: Visit Provider Nurse Practitioner Family | DX: Z00.00 Encounter for general adult medical examination without abnormal findings (principal) ==

== ENCOUNTER → 2020-09-05 08:57 | Outpatient (CLI) | payer BC, SELFPAY ==
--- NOTE | 2020-09-05 09:20 | MR_ITS ---
PROCEDURE: MR ABDOMEN WO CON CLINICAL INDICATION: FATTY LIVER, HEPATOSPLENOMEGALY Abnormal CT 07/26/20. COMPARISON: CT CT CHEST W CON from 07/26/2020 TECHNIQUE: Routine multiplanar multi echo sequences are performed without gadolinium enhancement. FINDINGS: There is mild hepatomegaly with the right lobe of the liver measuring 24 cm cephalad caudad in the transverse dimensions of the liver at 25 cm. No focal liver lesions are identified. There is diffuse decreased T2 signal of the liver. There is signal dropout of the liver on the out of phase images consistent with hepatic steatosis. The spleen is enlarged at 16 cm. No focal splenic lesion apparent. No obvious pancreatic mass. The gallbladder is mildly distended measuring 8 x 3.5 cm. No biliary ductal dilatation is evident. No evidence of common duct stone. No pancreatic ductal dilatation. The common hepatic duct has a somewhat irregular appearance proximally. This however could easily be related to artifact from mild motion. Follow-up may confirm No renal mass or hydronephrosis. No adrenal mass apparent. IMPRESSION: Hepatosplenomegaly with hepatic steatosis. Mild gallbladder distension. No obvious gallstones or ductal dilatation. Reformatted images show some minimal irregularity of the common hepatic duct proximally but could be related to artifact. Follow-up may confirm. Dictated by: Renato Blanchard MD 09/07/2020 07:25 Renato Blanchard MD in [facility] 09/07/2020 07:25
[2020-09-05 09:27] LABS: Basophils # 0.1 K/mm3 (0-0.2); Basophils % 0.7 % (0.1-2.0); Eosinophils # 0.1 K/mm3 (0.0-0.4); Eosinophils % 1.5 % (0.1-12.0); Hematocrit 39.6 % (37.0-47.0); Hemoglobin 13.2 g/dL (12.2-16.2); Lymphocytes # 1.6 K/mm3 (0.7-4.5); Lymphocytes % 26.7 % (10-50); Mean Corpuscular HGB Conc 33.4 g/dL (31.8-35.4); Mean Corpuscular Hemoglobin 27.4 pg (27.0-31.2); Mean Corpuscular Volume 82.1 fl (81-99); Mean Platelet Volume 8.7 fl (7.4-10.4); Monocytes # 0.3 K/mm3 (0.1-1.0); Monocytes % 4.7 % (1.7-9.3); Neutrophils # 4.1 K/mm3 (1.8-7.8); Neutrophils % 66.4 % (37.0-80.0); Platelet Count 228 K/mm3 (142-424); Red Blood Count 4.83 M/mm3 (4.20-5.40); Red Cell Distribution Width 14.9 % (11.5-17.5); White Blood Count 6.1 K/mm3 (4.8-10.8)
[2020-09-05 12:05] LABS: Alanine Aminotransferase 32 U/L (12-78); Albumin Level 4.3 g/dl (3.5-5.0); Albumin/Globulin Ratio 1.5 (1.1-1.8); Alkaline Phosphatase 83 U/L (38-126); Anion Gap 13.3 mEq/L (5-15); Aspartate Amino Transferase 28 U/L (14-36); Bilirubin,Total 0.4 mg/dl (0.2-1.3); Blood Urea Nitrogen 18 mg/dl (7-17); Calcium 9.1 mg/dl (8.4-10.2); Carbon Dioxide 25 mmol/L (22.0-30.0); Chloride 106 mmol/L (98-107); Estimated Glomerular Filt Rate 95 ml/min (>60); GFR (African American) 115 ML/MIN (>60); Globulin 2.9 g/dL (1.3-3.2); Glucose 109 mg/dl (74-100); Potassium 4.3 mmoL/L (3.5-5.1); Sodium 140 mmol/L (136-145); Total Protein,Serum 7.2 g/dl (6.3-8.2)
[2020-09-06 13:34] LABS: Hep A Ab, IgM Negative (Negative); Hepatitis B Core Antibody IgM Negative (Negative); Hepatitis B Surface Antigen Negative (Negative); Hepatitis C Antibody <0.1 s/co ratio (0.0-0.9)
[2020-09-09 00:07] LABS: ALT (SGPT) P5P 27 IU/L (0-40); AST (SGOT) P5P 25 IU/L (0-40); Alpha 2-Macroglobulins, Qn 151 mg/dL (110-276); Apolipoprotein A-1 144 mg/dL (116-209); Bilirubin, Total <0.1 mg/dL (0.0-1.2); Cholesterol, Total 208 mg/dL (100-199); Fibrosis Score 0.02 (0.00-0.21); GGT 27 IU/L (0-60); Glucose 118 mg/dL (65-99); Haptoglobin 207 mg/dL (33-278); Steatosis Score 0.66 (0.00-0.30); Triglycerides 179 mg/dL (0-149)
== END ==
PROVIDERS: PCP Nurse Practitioner Family; Visit Provider Nurse Practitioner Family
DX: R16.2 Hepatomegaly with splenomegaly, not elsewhere classified (principal); K76.0 Fatty (change of) liver, not elsewhere classified
CPT/HCPCS: 36415; 74181; 76376; 80053; 80074; 85025

== ENCOUNTER → 2020-11-24 13:58 | Outpatient (CLI) | payer BC, SELFPAY ==
--- NOTE | 2020-11-24 14:06 | US_ITS ---
PROCEDURE: US THYROID CLINICAL INDICATION: H/O FARAZ THYOIDITIS COMPARISON: No exams were available for comparison FINDINGS: There are no previous studies available at this institution for comparison. There is diffuse thickening of the isthmus at 9 mm. Within the mid to lateral aspect of the isthmus there is and slightly hypoechoic nodule measuring 2.7 cm transverse and 0.4 cm AP the nodule is well-circumscribed wider than tall with no obvious calcifications. The right lobe is 4.3 x 2.3 x 2.2 cm with diffuse heterogeneous echogenicity. The left lobe is 4.4 x 1.9 x 2 cm also with diffuse heterogeneous echogenicity. No dominant nodules evident in the right or left lobe there is diffuse heterogeneous echogenicity of thyroid gland. IMPRESSION: Slightly enlarged thyroid gland with diffuse heterogeneous echogenicity. T rads level 3 nodule of the isthmus. Please correlate with old exam to determine if this has increased in size. If the nodule stable then it can be watched. If nodule has increased in size or is not present previously then would recommend ultrasound-guided FNA. Dictated by: Renato Blanchard MD 11/24/2020 15:47 Renato Blanchard MD in [place] 11/24/2020 15:47
== END ==
PROVIDERS: PCP Nurse Practitioner Family; Visit Provider Nurse Practitioner Family
DX: Z86.39 Personal history of other endocrine, nutritional and metabolic disease (principal)
CPT/HCPCS: 76536

== ENCOUNTER 2021-04-03 10:28 | Emergency (ER) | payer BC, SELFPAY ==
[2021-04-03 11:41] VITALS: BP 136/85; PULSE 77; RESP 18; TEMP 36.8; O2SAT 99; BMI 39.1
--- NOTE | 2021-04-03 12:14 | HMH.EDUTC ---
[facility] Disposition Clinical Impression: Sinusitis Qualifiers: Sinusitis location: unspecified location Chronicity: acute Recurrence: non-recurrent Qualified Code(s): J01.90 - Acute sinusitis, unspecified Otitis media Qualifiers: Otitis media type: suppurative Chronicity: acute Laterality: bilateral Recurrence: non-recurrent Spontaneous tympanic membrane rupture: without spontaneous rupture Qualified Code(s): H66.003 - Acute suppurative otitis media without spontaneous rupture of ear drum, bilateral Disposition: Home, Self-Care Condition on Discharge: Good Instructions: DI for Sinusitis, Middle Ear Infection Additional Instructions: Drink plenty of fluids. Take tylenol or ibuprofen for pain or fever. Take the medications as directed. Follow up with your regular doctor. GO TO THE ER FOR ANY WORSENING SYMPTOMS Quarantine until you know the results of your covid-19 test. If it is positive, the health department should call you and give you further instructions about your length of Quarantine and other things. Notify your school or workplace of your results and follow their instructions regarding return to work/school. Prescriptions: methylPREDNISolone [Medrol] 4 mg PO DIRECTED 6 Days #21 packet Transmission Status: Pending to [facility] guaiFENesin [Mucinex 600mg tablet] 1 - 2 tab PO BIDP PRN #30 tab PRN Reason: Congestion Transmission Status: Pending to [facility] Azithromycin [Z-Joseluis 250mg Tab*] 250 mg PO UD DOSE PK #6 tab Transmission Status: Pending to [facility] Referrals: Opal Jeronimo APRN [Primary Care Provider] - Forms: Work/School Release Time of Disposition: 12:32 Medical Decision Making - Medical Records Medical records reviewed: No: I reviewed the patient's medical records. - Michi Inquiry Pt receiving controlled substance: No Vital Signs: 04/03/21 11:41 Temperature 98.2 F Temperature Source Oral Pulse Rate [Left] 77 Respiratory Rate 18 Blood Pressure [Right Arm] 136/85 Blood Pressure Mean [Right Arm] 102 02 Sat by Pulse Oximetry 99 - Lab Data Lab results reviewed: Yes: I reviewed the patient's lab results. [facility] HPI - General Stated complaint: congestion,runny nose Time Seen by Provider: 04/03/21 12:14 Mode of Arrival: Ambulatory Source of Information: Patient Limitations: No Limitations Description of Symptoms (Recalled from Triage Doc. by RN): pt c/o sinus pressure, congestion, and L ear ache. pt believes she has a sinus infection. HEENT Symptoms (Recalled from RN notes): Yes Resp Symptoms (Recalled from RN notes): No Skin Symptoms (Recalled from RN notes): No MS Symptoms (Recalled from RN notes): No Functional Status (Recalled from RN notes): wnl - History of Present Illness Provider Complaint: She states that for the past 3 days she has had sinus congestion, sinus pressure, post nasal drainage, and left ear pain. She has a lot of trouble with allergies and sinus infections and that is what it feels like she has now. - Related Data Home Medications Medication Instructions Recorded Confirmed Levothyroxine Sodium [Synthroid 50 mcg PO DAILY 09/05/17 07/26/20 50mcg (0.05mg) tab] Escitalopram Oxalate [Lexapro] 10 mg PO DAILY 09/21/19 07/26/20 Levocetirizine Dihydrochloride 5 mg PO DAILY 09/21/19 07/26/20 [Xyzal] Montelukast Sodium [Singulair 10mg 10 mg PO PM 09/21/19 07/26/20 tablet] furosemide 20 mg tablet 40 mg PO DAILY tab 06/27/20 07/26/20 mometasone-formoterol HFA 200 2 puff INHALATION BID 06/27/20 07/26/20 mcg-5 mcg/actuation aerosol inhaler Albuterol Sulfate [Proair Hfa] 8.5 gm IH DAILY 07/13/20 07/26/20 Cholecalciferol (Vitamin D3) 10 mcg PO DAILY 07/13/20 07/26/20 [Vitamin D-400] hydroxyzine HCl 10 mg tablet 10 mg PO TID PRN tab 08/02/20 08/02/20 Previous Rx's Medication Instructions Recorded aspirin 81 mg PO DAILY #30 tablet 10/17/20 metoprolol succinate 50 mg See Rx Instructio
[2021-04-03 12:33] VITALS: BP 136/85; PULSE 77; RESP 18; TEMP 36.8
== END 2021-04-03 12:35 | disposition home or self-care (01) ==
PROVIDERS: Emergency Provider Nurse Practitioner Family; PCP Nurse Practitioner Family
DX: J01.90 Acute sinusitis, unspecified (principal); H66.003 Acute suppurative otitis media without spontaneous rupture of ear drum, bilateral; J45.909 Unspecified asthma, uncomplicated
CPT/HCPCS: 99202; C9803; G0463; U0003; U0005

== ENCOUNTER → 2021-11-02 06:22 | Outpatient (CLI) | payer BC, SELFPAY | PROVIDERS: PCP Internal Medicine Adolescent Medicine; Visit Provider Internal Medicine Adolescent Medicine | DX: U07.1 COVID-19 (principal); R05.9 Cough, unspecified | CPT/HCPCS: C9803; U0003; U0005 ==

== ENCOUNTER → 2022-12-25 12:00 | Outpatient (CLI) | payer BC, SELFPAY ==
[2022-12-25 16:58] LABS: Basophils % 0.3 % (0.1-2.0); Eosinophils # 0.1 K/mm3 (0.0-0.4); Eosinophils % 0.9 % (0.1-12.0); Hematocrit 43.4 % (37.0-47.0); Hemoglobin 13.7 g/dL (12.2-16.2); Lymphocytes # 1.6 K/mm3 (0.7-4.5); Lymphocytes % 24.7 % (10-50); Mean Corpuscular HGB Conc 31.6 g/dL (31.8-35.4); Mean Corpuscular Hemoglobin 27.6 pg (27.0-31.2); Mean Corpuscular Volume 87.4 fl (81-99); Mean Platelet Volume 11.2 fl (7.4-10.4); Monocytes # 0.3 K/mm3 (0.1-1.0); Monocytes % 3.9 % (1.7-9.3); Neutrophils # 4.6 K/mm3 (1.8-7.8); Neutrophils % 70.2 % (37.0-80.0); Platelet Count 244 K/mm3 (142-424); Red Blood Count 4.97 M/mm3 (4.20-5.40); Red Cell Distribution Width 14.8 % (11.5-17.5); White Blood Count 6.5 K/mm3 (4.8-10.8)
[2022-12-25 17:00] LABS: Chloride 107 mmol/L (98-107)
[2022-12-25 17:01] LABS: Potassium 4.8 mmoL/L (3.5-5.1); Sodium 139 mmol/L (136-145)
[2022-12-25 17:03] LABS: Alanine Aminotransferase 28 U/L (12-78); Albumin Level 3.9 g/dl (3.5-5.0); Albumin/Globulin Ratio 1.3 (1.1-1.8); Alkaline Phosphatase 83 U/L (38-126); Anion Gap 12.8 mEq/L (5-15); Aspartate Amino Transferase 30 U/L (14-36); Bilirubin,Total 0.3 mg/dl (0.2-1.3); Blood Urea Nitrogen 17 mg/dl (7-17); Carbon Dioxide 24 mmol/L (22.0-30.0); Estimated Glomerular Filt Rate 94 ml/min (>60); GFR (African American) 113 ML/MIN (>60); Total Protein,Serum 6.9 g/dl (6.3-8.2)
[2022-12-25 17:04] LABS: Calcium 8.9 mg/dl (8.4-10.2); Chol/HDL Ratio 6.3 (1-3.5); Cholesterol 238 mg/dl (140-200); Glucose 107 mg/dl (74-100); HDL Cholesterol 38 mg/dl (40-60); Triglycerides 182 mg/dl (30-150); VLDL Cholesterol 36 mg/dL (0-40)
[2022-12-25 17:15] LABS: Direct LDL Cholesterol 136.83 mg/dL (100-129)
[2022-12-25 17:34] LABS: Thyroid Stimulating Hormone 3.15 uIU/mL (0.465-4.68)
--- OUTSIDE RECORDS SUMMARY | 2023-01-07 13:24 | XMS_ITS | Clinical Summary ---
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
== END ==
PROVIDERS: PCP Family Medicine; Visit Provider Family Medicine
DX: F41.9 Anxiety disorder, unspecified (principal)
CPT/HCPCS: 80053; 80061; 84443; 85025

== ENCOUNTER 2023-03-16 16:22 | Emergency (ER) | payer BC, SELFPAY ==
[2023-03-16 16:40] VITALS: BP 151/91; PULSE 87; RESP 24; TEMP 36.9; O2SAT 98; BMI 45.2
--- NOTE | 2023-03-16 17:00 | EXP.UTC ---
Discharge Plan Disposition Patient Disposition: Home, Self-Care Condition: Good Prescriptions Prescriptions: New methylprednisolone [Medrol (Joseluis)] 4 mg tablets,dose pack See Rx Instructions .Route .COMPLEX 6 Days Qty: 21 0RF Rx Instructions: taper pack; amoxicillin-pot clavulanate 875-125 mg Tablet 1 tab PO Q12H Qty: 20 0RF guaifenesin [Mucinex] 600 mg tablet extended release 12hr 1,200 mg PO BID PRN (Reason: cough) Qty: 20 0RF No Action bupropion HCl [Wellbutrin XL] 300 mg tablet extended release 24 hr 300 mg PO DAILY Qty: 30 3RF mirtazapine 7.5 mg tablet 7.5 mg PO HS Qty: 30 3RF furosemide 40 mg tablet 40 mg PO DAILY Qty: 90 3RF hydroxyzine HCl 25 mg tablet See Rx Instructions .ROUTE .COMPLEX Qty: 180 3RF Dose Instruction: TAKE 1 TABLET BY MOUTH THREE TIMES DAILY NEEDED FOR ANXIETY Rx Instructions: TAKE 1 TABLET BY MOUTH THREE TIMES DAILY NEEDED FOR ANXIETY levothyroxine [Synthroid] 75 mcg tablet 75 mcg PO DAILY 90 Days Qty: 90 3RF metoprolol succinate 50 mg tablet extended release 24 hr 50 mg PO DAILY Qty: 90 3RF montelukast 10 mg tablet 10 mg PO DAILY Qty: 90 3RF cetirizine [Allergy Relief (cetirizine)] 10 mg tablet See Rx Instructions .ROUTE .COMPLEX Qty: 90 3RF Dose Instruction: Take 1 tablet by mouth once daily Rx Instructions: Take 1 tablet by mouth once daily levocetirizine 5 MG tablet 5 mg PO DAILY Referrals Follow up/Referrals: Cezar Mendez MD [Primary Care Provider] - See instructions Activity Restrictions/Add. Instructions Additional Instructions/Restrictions: Start antibiotic today. Be sure to complete entire prescription even if feeling better Monitor temp. Tylenol every 4 hours as needed and / or ibuprofen every 6 hours as needed ( As long as your primary care physician has told you that it ok to take both. For fever/aches/pains ER if no less than 101 despite Tylenol or Motrin Humidifier/vaporizer or hot steamy shower Inhaler every 4-6 hours as needed like we discussed. If unsure how to use it, ask pharmacist to demonstrate how. Should help open airways and improve cough, wheezing, and shortness of breath Mucinex for your cough Be sure to drink lots of water. *Start steroid today. Helps with inflammation therefore, cough and wheezing. Follow directions on the package. Reviewed side effects. Patient reports taking them before. Follow up IMMEDIATELY for new or worsening of symptoms OR no noticeable improvement over the next 48-72 hours. 911 immediately for any life threatening symptoms such as chest pain or difficulty breathing Clinical Impressions Clinical Impression: Bronchitis Sinusitis Qualifiers: Sinusitis location: unspecified location Chronicity: unspecified Qualified Code(s): J32.9 - Chronic sinusitis, unspecified Stand Alone Forms Stand Alone Forms: Work/School Release Instructions Patient Instructions: Acute Bronchitis, DI for Sinusitis Discharge ED Provider: Mariama Koch [facility] General Stated complaint: shortness of breath , cough Mode of Arrival: Ambulatory Source of Information: Patient Limitations: No Limitations Time Seen by Provider: 03/16/23 17:00 Description of Symptoms (Recalled from Triage Doc. by RN): PATIENT C/O COUGH, SOA, AND SINUS DRAINAGE THAT STARTED YESTERDAY HEENT Symptoms (Recalled from RN notes): Yes Resp Symptoms (Recalled from RN notes): Yes Skin Symptoms (Recalled from RN notes): No MS Symptoms (Recalled from RN notes): No Functional Status (Recalled from RN notes): WNL History of Present Illness Provider Complaint: Patient states that she has been having sinus congestion and pressure for about a week States that yesterday she felt like it was trying to move into her chest and was draining in the back of her throat and she started getting a deep cough and at times
[2023-03-16 17:15] VITALS: BP 151/91; PULSE 87; RESP 24; TEMP 36.9; O2SAT 98
== END 2023-03-16 17:19 | disposition home or self-care (01) ==
PROVIDERS: Emergency Provider Nurse Practitioner; PCP Family Medicine
DX: J20.9 Acute bronchitis, unspecified (principal); J01.90 Acute sinusitis, unspecified; R06.02 Shortness of breath; R05.8 Other specified cough; R09.81 Nasal congestion; R09.82 Postnasal drip; J45.909 Unspecified asthma, uncomplicated; E06.3 Autoimmune thyroiditis
CPT/HCPCS: 96372; 99212; 99214; G0463

== ENCOUNTER 2023-08-09 21:32 | Emergency (ER) | payer BC, SELFPAY ==
--- NOTE | 2023-08-09 21:31 | ECG_ITS ---
APPROVED REPORT Exam: Resting ECG HR:106 bpm ECG Measurements Heart Rate 106 AXES WY 194 P 66 QRSd 93 QRS 58 QT 348 T 28 QTc 410 Conclusion SINUS TACHYCARDIA ABNORMAL RHYTHM ECG Electronically signed by : FLORI HOGAN, 08/10/2023 07:20:42
--- NOTE | 2023-08-09 21:34 | XR_ITS ---
PROCEDURE INFORMATION: Exam: XR Chest Exam date and time: 08/09/2023 9:37 PM Age: 37 years old Clinical indication: Pain; Chest pressure; Additional info: Cp TECHNIQUE: Imaging protocol: Radiologic exam of the chest. Views: 1 view. COMPARISON: CT CHEST W CON 07/26/2020 9:10 AM FINDINGS: Lungs: No evidence of acute pulmonary disease or infiltrates Pleural spaces: No large effusion or pneumothorax. Heart/Mediastinum: No evidence of mediastinal widening or cardiac silhouette enlargement; the mediastinum and heart appear within normal limits for contour and size. Bones/joints: No evidence of acute osseous abnormalities within the visualized portions of the thoracic spine and ribs. Osseous structures appear appropriate for patient age. IMPRESSION: No dense parenchymal consolidation, pleural effusion, or pneumothorax.
[2023-08-09 21:35] VITALS: BP 164/100; PULSE 106; RESP 16; TEMP 37.1; O2SAT 98; BMI 39.1
[2023-08-09 21:41] VITALS: PULSE 80
[2023-08-09 21:48] LABS: Basophils # 0.1 K/mm3 (0-0.2); Basophils % 0.8 % (0.1-2.0); Eosinophils # 0.2 K/mm3 (0.0-0.4); Eosinophils % 1.4 % (0.1-12.0); Hematocrit 41.5 % (37.0-47.0); Hemoglobin 13.8 g/dL (12.2-16.2); Lymphocytes # 2.2 K/mm3 (0.7-4.5); Lymphocytes % 19.4 % (10-50); Mean Corpuscular HGB Conc 33.2 g/dL (31.8-35.4); Mean Corpuscular Hemoglobin 28.2 pg (27.0-31.2); Mean Platelet Volume 9.3 fl (7.4-10.4); Monocytes # 0.4 K/mm3 (0.1-1.0); Monocytes % 3.7 % (1.7-9.3); Neutrophils # 8.5 K/mm3 (1.8-7.8); Neutrophils % 74.6 % (37.0-80.0); Platelet Count 235 K/mm3 (142-424); Red Blood Count 4.88 M/mm3 (4.20-5.40); White Blood Count 11.4 K/mm3 (4.8-10.8)
[2023-08-09 21:49] VITALS: BP 157/91; PULSE 91; RESP 16; O2SAT 98
[2023-08-09] MEDS: ASPIRIN 81MG CHEWABLE TABLET 324 MG PO (21:54)
[2023-08-09 21:56] LABS: Alanine Aminotransferase 30 U/L (12-78); Albumin Level 4.4 g/dl (3.5-5.0); Albumin/Globulin Ratio 1.3 (1.1-1.8); Alkaline Phosphatase 77 U/L (38-126); Anion Gap 14.7 mEq/L (5-15); Aspartate Amino Transferase 30 U/L (14-36); Bilirubin,Total 0.4 mg/dl (0.2-1.3); Blood Urea Nitrogen 9 mg/dl (7-17); Calcium 9.7 mg/dl (8.4-10.2); Carbon Dioxide 26 mmol/L (22.0-30.0); Chloride 102 mmol/L (98-107); Creatinine Clearance Estimated 228 mL/min (50-200); Estimated Glomerular Filt Rate 112 ml/min (>60); GFR (African American) 135 ML/MIN (>60); Globulin 3.5 g/dL (1.3-3.2); Glucose 114 mg/dl (74-100); Potassium 3.7 mmoL/L (3.5-5.1); Sodium 139 mmol/L (136-145); Total Protein,Serum 7.9 g/dl (6.3-8.2)
[2023-08-09 22:01] VITALS: BP 153/80; PULSE 94; RESP 25; O2SAT 100
[2023-08-09 22:01] LABS: D-Dimer 0.34 ug/mL (0.0-0.5)
[2023-08-09 22:10] LABS: NT Pro Brain Natriuretic Pep. 76.1 pg/mL (0-125)
[2023-08-09 22:11] LABS: Troponin I < 0.01 ng/ml (0.00-0.034)
--- NOTE | 2023-08-09 22:35 | ED_ITS ---
Discharge Plan Disposition Patient Disposition: Home, Self-Care Prescriptions Prescriptions: No Action trazodone 50 mg tablet 50 - 150 mg PO HS Qty: 90 3RF paroxetine HCl 40 mg tablet 40 mg PO DAILY Qty: 30 3RF clonazepam 0.5 mg tablet 0.5 mg PO BID Qty: 60 2RF furosemide 40 mg tablet 40 mg PO DAILY Qty: 90 3RF hydroxyzine HCl 25 mg tablet See Rx Instructions .ROUTE .COMPLEX Qty: 180 3RF Dose Instruction: TAKE 1 TABLET BY MOUTH THREE TIMES DAILY NEEDED FOR ANXIETY Rx Instructions: TAKE 1 TABLET BY MOUTH THREE TIMES DAILY NEEDED FOR ANXIETY levothyroxine [Synthroid] 75 mcg tablet 75 mcg PO DAILY 90 Days Qty: 90 3RF metoprolol succinate 50 mg tablet extended release 24 hr 50 mg PO DAILY Qty: 90 3RF montelukast 10 mg tablet 10 mg PO DAILY Qty: 90 3RF cetirizine [Allergy Relief (cetirizine)] 10 mg tablet See Rx Instructions .ROUTE .COMPLEX Qty: 90 3RF Dose Instruction: Take 1 tablet by mouth once daily Rx Instructions: Take 1 tablet by mouth once daily levocetirizine 5 MG tablet 5 mg PO DAILY Referrals Follow up/Referrals: Provider,Referral, MD [Primary Care Provider] - See instructions Activity Restrictions/Add. Instructions Additional Instructions/Restrictions: Laboratory workup was negative today. Heart and lungs are healthy. No evidence of blood clot. Call your family doctor to establish care for this visit to the emergency department and schedule follow-up within 48 hours to ensure improvement. If you have any worsening of your condition or any other concerning signs or symptoms, return to the emergency department or your primary care doctor for further evaluation. Clinical Impressions Clinical Impression: Heart palpitations Discharge ED Provider: Bal Zamarripa General Adult HPI General Chief complaint: Arrhythmia/Palpitations Stated complaint: Chest pain Time Seen by Provider: 08/09/23 21:34 Mode of Arrival: Family Vehicle Source of Information: Patient Limitations: No Limitations Description of Symptoms (Recalled from ER Triage Doc. by RN): 37 yo female presents with cc of heart palpitations and right shoulder pain throughout day today but made her nauseated. History of Present Illness HPI narrative: Please note that above description of symptoms, in this electronic medical record under categorization of recalled from ER triage doctor by RN are reflective of an initial nursing assessment, however, is not reflective of my full history and physical exam that was personally taken and clarified. Consequentially, this preceding description of symptoms, which may include the patient's categorized chief complaint in the EMR, do not reflect my personal clinical impression, and the ultimate description of history of present illness and patient stated complaints should be deferred to this section of the note. Unless stated otherwise or congruent with this section of the note, additional signs, symptoms, or incongruence should be interpreted as inaccurate with my clinical impression. Related Data Home Medications Medication Instructions Recorded Confirmed levocetirizine 5 mg tablet 5 mg PO DAILY allergies 09/21/19 07/14/23 Previous Rx's Medication Instructions Recorded cetirizine 10 mg tablet (Allergy See Rx Instructions .Route 11/06/22 Relief (cetirizine)) .COMPLEX #90 tabs furosemide 40 mg tablet 40 mg PO DAILY #90 tabs 11/20/22 hydroxyzine HCl 25 mg tablet See Rx Instructions .Route 11/20/22 .COMPLEX #180 tabs levothyroxine 75 mcg tablet 75 mcg PO DAILY 90 days #90 tabs 11/20/22 (Synthroid) metoprolol succinate 50 mg 50 mg PO DAILY #90 tabs 11/20/22 tablet,extended release 24 hr montelukast 10 mg tablet 10 mg PO DAILY #90 tabs 11/20/22 clonazepam 0.5 mg tablet 0.5 mg PO BID #60 tabs 07/14/23 paroxetine HCl 40 mg tablet 40 mg PO DAILY #30 tabs 07/14/23 trazodone 50 mg tablet 50 - 150 mg (1 - 3 x 50 mg) PO HS 07/14/23 #90 tabs Allergies Allergy/AdvReac Type Severity Reaction Status Date / Time mushroom Allergy Unknown Unknown Verified 07/14/23 13:[address] [facility] Disclaimer: The information contained in this section may have been updated after the patient was seen, as this information can be updated by other users. 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 current occupational exposures/hazards: Yes caffeine: Yes ROS Obtained: Yes All systems reviewed & no additional complaints except as documented Physical Exam General General appearance: alert and in no apparent distress Head Head exam: atraumatic and normocephalic Eye Eye exam: Present normal appearance, PERRL and EOMI ENT ENT exam: Present mucous membranes moist Neck Neck exam: Present normal inspection, full ROM and trachea midline Respiratory Respiratory exam: Absent respiratory distress, wheezes, stridor, accessory muscle use or prolonged expiratory phase Cardiovascular Cardiovascular exam: Present normal rhythm Abdominal Exam Abdominal exam: Present soft; Absent distention, tenderness, guarding, rebound or rigidity Extremities Exam Extremities exam: Absent edema Neurological Exam Neurological exam: Present alert, oriented X3, CN II-XII intact and normal gait; Absent motor sensory deficit Skin Skin exam: Present warm and dry; Absent diaphoresis or erythema Medical Decision Making Medical Records Medical records reviewed: Yes I reviewed the patient's medical records. Michi Inquiry Pt receiving controlled substance: No Michi was queried for this patient: No Vital Signs: 08/09/23 21:35 08/09/23 21:41 08/09/23 21:49 Temperature 98.7 F Temperature Source Oral Pulse Rate 80 91 H Pulse Rate [Right Brachial] 106 H Respiratory Rate 16 16 Blood Pressure 157/91 H Blood Pressure [Left Arm] 164/100 H Blood Pressure Mean 113 Blood Pressure Mean [Left Arm] 121 Blood Pressure Source [Left Arm] Manual Cuff/ Palpation Blood Pressure Position [Left Arm] Sitting 02 Sat by Pulse Oximetry 98 98 Oxygen Delivery Method Room Air Room Air 08/09/23 22:01 08/09/23 23:05 Temperature 98.0 F Temperature Source Pulse Rate 94 H 89 Pulse Rate [Right Brachial] Respiratory Rate 25 H 20 Blood Pressure 153/80 H 146/85 H Blood Pressure [Left Arm] Blood Pressure Mean 106 Blood Pressure Mean [Left Arm] Blood Pressure Source [Left Arm] Blood Pressure Position [Left Arm] 02 Sat by Pulse Oximetry 100 Oxygen Delivery Method Room Air Room Air Lab Data Lab Results 08/09/23 21:30: WBC 11.4 H, RBC 4.88, Hgb 13.8, Hct 41.5, MCV 85.0, MCH 28.2, MCHC 33.2, RDW 15.0, Plt Count 235, MPV 9.3, Neut % (Auto) 74.6, Lymph % (Auto) 19.4, [place] % (Auto) 3.7, Eos % (Auto) 1.4, Baso % (Auto) 0.8, Neut # (Auto) 8.5 H, Lymph # (Auto) 2.2, [place] # (Auto) 0.4, Eos # (Auto) 0.2, Baso # (Auto) 0.1, D-Dimer 0.34, Sodium 139, Potassium 3.7, Chloride 102, Carbon Dioxide 26, Anion Gap 14.7, BUN 9, Creatinine 0.60, Estimated Creat Clear 228, Estimated GFR 112, Est GFR ( Amer) 135, Glucose 114 H, Calcium 9.7, Total Bilirubin 0.4, AST 30, ALT 30, Alkaline Phosphatase 77, Troponin I < 0.01, NT-Pro-B Natriuret Pep 76.1, Total Protein 7.9, Albumin 4.4, Globulin 3.5 H, Albumin/Globulin Ratio 1.3 08/09/23 21:30 08/09/23 21:30 Orders (Tests/Meds): ED MEDICATIONS Discontinued Medications Generic Name Dose Route Start Last Admin Trade Name Freq PRN Reason Stop Dose Admin Aspirin 324 mg 08/09/23 21:34 08/09/23 21:54 Aspirin 81mg Chewable Tablet PO 08/09/23 21:35 324 mg ONCE ONE Administration ORDERS Category Date Time Status CXR --portable [XR chest portable] Stat Exams 08/09/23 21:34 Completed CBC w/Auto Diff [Complete Blood Count Auto Diff] Stat Lab 08/09/23 21:30 Completed CMP [Comprehensive Metabolic Panel] Stat Lab 08/09/23 21:30 Completed D-Dimer Stat Lab 08/09/23 21:30 Completed NT Pro Brain Natriuretic Pep. 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 Started this morning, 5/4 when she woke up. Has been progressive throughout the day. No acute chest pain, new shortness of breath, diaphoresis. She has had a couple episodes of vomiting. history obtained with patient. On arrival, patient hemodynamically stable, alert, oriented x4, appropriate, GCS 15, moving all extremities spontaneously, pupils equal and reactive to light. Full physical exam performed and significant for normal cardiac exam with pulses equal symmetric. No murmurs, gallops, rubs. Lungs are clear to auscultation bilaterally. No evidence of wheezes. Differential includes metabolic abnormality, endocrinologic abnormality, ACS, [place], pneumothorax, PE, among others. Patient was given full dose aspirin for symptomatic management and correction of underlying abnormalities. Workup independently interpreted and significant for normal hematologic workup including troponin. Chest x-ray without acute cardiopulmonary space disease see radiology read for full review of final results. Independent interpretation of EKG shows sinus tachycardia 106 beats a minute no ST or T wave changes concerning for acute ischemia. ID, QRS, QT intervals within normal limits. Heart score 0.On reevaluation, patient resting at baseline, blood pressure improved. Given patient presentation, workup, history, this most likely represents palpitations. Because patient at baseline without signs or symptoms of clinical decompensation, deemed appropriate for discharge. Results were relayed to patient who voiced understanding and were agreeable to outpatient management and follow up. I discussed my clinical impression with patient and answered all questions. At this time, the evidence for any other entities in the differential is insufficient to warrant any further testing or ED observation. This was explained as well. Advisory was given that persistent or worsening symptoms require further evaluation. I confirmed the understanding of this discussion. Critical Care Critical Care Time Critical Care Time: No
[2023-08-09 23:05] VITALS: BP 146/85; PULSE 89; RESP 20; TEMP 36.7; O2SAT 98
== END 2023-08-09 23:07 | disposition home or self-care (01) ==
PROVIDERS: Emergency Provider Emergency Medicine
DX: R00.2 Palpitations; E06.3 Autoimmune thyroiditis; R00.0 Tachycardia, unspecified
CPT/HCPCS: 71045; 80053; 83880; 84484; 85025; 85378; 93005; 99284

== ENCOUNTER 2023-12-24 17:33 | Emergency (ER) | payer BC, SELFPAY ==
[2023-12-24 18:35] VITALS: BP 147/83; PULSE 86; RESP 20; TEMP 36.8; O2SAT 97; BMI 42.0
--- NOTE | 2023-12-24 18:44 | XR_ITS ---
PROCEDURE INFORMATION: Exam: XR Right Foot Exam date and time: 12/24/2023 7:06 PM Age: 38 years old Clinical indication: Pain; Foot; Right TECHNIQUE: Imaging protocol: Radiologic exam of the right foot. Views: 3 or more views. COMPARISON: CR XR ANKLE RT MIN 3V 12/24/2023 7:04 PM FINDINGS: Bones/joints: No fracture or dislocation. No significant arthropathy. Small posterior and plantar surface calcaneal bone spurs. Soft tissues: Normal. IMPRESSION: No acute findings.
--- NOTE | 2023-12-24 18:44 | XR_ITS ---
PROCEDURE INFORMATION: Exam: XR Right Ankle Exam date and time: 12/24/2023 7:04 PM Age: 38 years old Clinical indication: Pain; Ankle; Right TECHNIQUE: Imaging protocol: Radiologic exam of the right ankle. Views: 3 or more views. COMPARISON: No relevant prior studies available. FINDINGS: Bones/joints: No fracture or dislocation. No ankle arthropathy. Small posterior and plantar surface calcaneal bone spurs. Soft tissues: Normal. IMPRESSION: No acute findings.
--- NOTE | 2023-12-24 19:09 | ED_ITS ---
Discharge Plan Disposition Patient Disposition: Home, Self-Care Condition: Good Prescriptions Prescriptions: New methylprednisolone [Medrol (Joseluis)] 4 mg tablets,dose pack See Rx Instructions .Route .COMPLEX 6 Days Qty: 21 0RF Rx Instructions: taper pack; No Action trazodone 50 mg tablet 50 - 150 mg PO HS Qty: 90 3RF hydroxyzine HCl 25 mg tablet See Rx Instructions .ROUTE .COMPLEX Qty: 180 3RF Dose Instruction: TAKE 1 TABLET BY MOUTH THREE TIMES DAILY NEEDED FOR ANXIETY Rx Instructions: TAKE 1 TABLET BY MOUTH THREE TIMES DAILY NEEDED FOR ANXIETY montelukast 10 mg tablet 10 mg PO DAILY Qty: 90 3RF venlafaxine 37.5 mg capsule,extended release 24hr 37.5 mg PO DAILY Patient Comments: TAKE 1 CAPSULE BY MOUTH ONCE DAILY FOR 7 DAYS, THEN TAKE 2 CAPSULES ONCE DAILY metoprolol succinate 100 mg tablet extended release 24 hr 100 mg PO DAILY Qty: 90 3RF omeprazole 20 mg capsule,delayed release(DR/EC) 20 mg PO DAILY Qty: 30 2RF levothyroxine [Synthroid] 75 mcg tablet 75 mcg PO DAILY 90 Days Qty: 90 0RF cetirizine [Allergy Relief (cetirizine)] 10 mg tablet See Rx Instructions .ROUTE .COMPLEX Qty: 90 0RF Dose Instruction: Take 1 tablet by mouth once daily Rx Instructions: Take 1 tablet by mouth once daily furosemide 40 mg tablet 40 mg PO DAILY Qty: 90 0RF levocetirizine 5 MG tablet 5 mg PO DAILY Referrals Follow up/Referrals: Brianna Shi APRN [Nurse Practitioner] - See instructions Cezar Mendez MD [Primary Care Provider] - See instructions Christine Terry DPM [Staff Physician] - See instructions Activity Restrictions/Add. Instructions Additional Instructions/Restrictions: *weight bearing as tolerated *RICE, Rest the extremity, Ice 15-20 minutes 3-4 times daily, Compress- wear the alejandro wrap as discussed as much as possible to help reduce swelling and pain, Elevate the extremity when at rest *Alejandro wrap/Walking boot is for support and help control swelling, use it except in the shower. Be sure that is not to tight but not to loose either *Elevate when resting? *Ibuprofen 600-800mg every 6-8 hours as needed for pain an inflammation. If need something more can take Tylenol in between doses of Ibuprofen to help Immediately follow up with your family doctor for new or worsening of symptoms, or no noticeable improvement over the next 3-5 days Follow up with Podiatry Call the office for appointment Clinical Impressions Clinical Impression: Ankle pain Qualifiers: Chronicity: unspecified Laterality: right Qualified Code(s): M25.571 - Pain in right ankle and joints of right foot Instructions Patient Instructions: DI for Ankle Pain, Methylprednisolone Print Language Print Language: Icelandic Discharge ED Provider: Mariama Koch [facility] HPI General Stated complaint: right ankle swollen,painful,no injury Mode of Arrival: Ambulatory Source of Information: Patient Time Seen by Provider: 12/24/23 19:11 Description of Symptoms (Recalled from Triage Doc. by RN): RIGHT HEEL.FOOT PAIN HX OF ACHILLES TENDON INJURY ONE YEAR AGO PAIN WALKING 4/10 PAIN GOING UP STEPS 10/10 SHOOTS SHARP PAIN HEENT Symptoms (Recalled from RN notes): No Resp Symptoms (Recalled from RN notes): No Skin Symptoms (Recalled from RN notes): No MS Symptoms (Recalled from RN notes): Yes Functional Status (Recalled from RN notes): PAIN WITH WALKING AND GOING UP STEPS History of Present Illness Provider Complaint: Patient states about a year ago she had an injury to her Achilles tendon and they had her rest and ice it and it got better States that about a week or so ago she started having pain again in her right heel area and the back of her foot/ankle that shoots up her leg Denies known injury worried that she may have hurt it again Related Data Home Medications ?Medication ?Instructions ?Recorded ?Confirmed levocetirizine 5 mg tablet 5 mg PO DAILY allergies 09/21/19 10/27/23 venlafaxine 37.5 mg 37.5 mg PO DAILY 08/11/23 10/27/23 capsule,extended release 24 hr Previous Rx's ?Medication ?Instructions ?Recorded hydroxyzine HCl 25 mg tablet See Rx Instructions .Route 11/20/22 .COMPLEX #180 tabs montelukast 10 mg tablet 10 mg PO DAILY #90 tabs 11/20/22 trazodone 50 mg tablet 50 - 150 mg (1 - 3 x 50 mg) PO HS 07/14/23 #90 tabs metoprolol succinate 100 mg 100 mg PO DAILY #90 tabs 10/27/23 tablet,extended release 24 hr omeprazole 20 mg capsule,delayed 20 mg PO DAILY #30 caps 10/27/23 release cetirizine 10 mg tablet (Allergy See Rx Instructions .Route 12/09/23 Relief (cetirizine)) .COMPLEX #90 tabs furosemide 40 mg tablet 40 mg PO DAILY #90 tabs 12/09/23 levothyroxine 75 mcg tablet 75 mcg PO DAILY 90 days #90 tabs 12/09/23 (Synthroid) methylprednisolone 4 mg tablets in See Rx Instructions .Route 12/24/23 a dose pack (Medrol (Joseluis)) .COMPLEX 6 days #21 tabs Allergies Allergy/AdvReac Type Severity Reaction Status Date / Time mushroom Allergy Unknown Unknown Verified 10/27/23 13:35 allergy reaction Worker's Comp Is this a Worker's Comp case?: No [facility] Disclaimer: The information contained in this section may have been updated after the patient was seen, as this information can be updated by other users. 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 current occupational exposures/hazards: Yes caffeine: Yes ROS Obtained: Yes All systems reviewed & no additional complaints except as documented and Yes Systems reviewed as appropriate & no additional complaints except as documented Constitutional Constitutional: Reports system reviewed and no additional complaints, except as documented and Reports as per HPI ENT Ears, Nose, Mouth, and Throat: Reports system reviewed and no additional complaints, except as documented and Reports as per HPI Cardiovascular Cardiovascular: Reports system reviewed and no additional complaints, except as documented and Reports as per HPI Respiratory Respiratory: Reports system reviewed and no additional complaints, except as documented and Reports as per HPI Gastrointestinal Gastrointestingal: Reports system reviewed and no additional complaints, except as documented and as per HPI Musculoskeletal Musculoskeletal: Reports system reviewed and no additional complaints, except as documented, Reports as per HPI and Reports other Comments: pain in right heel area, back of foot and ankle hx of achillies tendon injury 1 yr ago Physical Exam General General appearance: alert and in no apparent distress ENT ENT exam: Present mucous membranes moist Respiratory Respiratory exam: Present normal lung sounds bilaterally; Absent respiratory distress or wheezes Cardiovascular Cardiovascular exam: Present regular rate, normal rhythm and normal heart sounds Expanded Lower Extremity Exam Right: Ankle exam: Present tenderness; Absent swelling, ecchymosis or erythema Ankle image: 2 1. reports pain with walking worse on steps that shoots up into her lower leg, no discoloration no redness noted Foot/toe exam: Present tenderness; Absent swelling, abrasion, laceration, ecchymosis or erythema Gait: observed and limited by pain Neurological Exam Neurological exam: Present alert, oriented X3 and normal gait Medical Decision Making Medical Records Screening: Per USPSTF and CDC recommendations, given the prevalence of disease in our region, it is our hospital?s policy to screen for HIV and viral Hepatitis for all patients aged 18 and over and those with ongoing risk factors. Michi Inquiry Pt receiving controlled substance: No Michi was queried for this patient: No Vital Signs: 12/24/23 18:35 Temperature 98.2 F Temperature Source Oral Pulse Rate [Left Brachial] 86 Respiratory Rate 20 Blood Pressure [Left Arm] 147/83 H Blood Pressure Mean [Left Arm] 104 02 Sat by Pulse Oximetry 97 Orders (Tests/Meds): ORDERS Category Date Time Status Foot XR right minimum 3 views [XR foot RT min 3V] Stat Exams 12/24/23 18:44 Ordered XR ankle RT min 3V Stat Exams 12/24/23 18:44 Ordered Radiology Data #1: Image(s): Ankle Image Reviewed: Yes I have reviewed radiologist's interpretation IMPRESSION: No acute findings. #2: Image(s): Foot/Toes Image Reviewed: Yes I have reviewed radiologist's interpretation IMPRESSION: No acute findings. Medical Decision Narrative: Walking boot did not properly fit, patient was given RX for short cam walking boot
[2023-12-24 20:06] VITALS: BP 147/83; PULSE 86; RESP 20; TEMP 36.8
== END 2023-12-24 20:08 | disposition home or self-care (01) ==
PROVIDERS: Emergency Provider Nurse Practitioner; PCP Family Medicine
DX: M25.571 Pain in right ankle and joints of right foot (principal)
CPT/HCPCS: 73610; 73630; 99212; 99214; G0463

== ENCOUNTER 2023-12-25 08:10 | Outpatient (RCR) | payer BC, SELFPAY | END 2023-12-25 09:30 | disposition home or self-care (01) | LOC: PT 08:10 | PROVIDERS: Visit Provider Nurse Practitioner | DX: M76.61 Achilles tendinitis, right leg (principal) | CPT/HCPCS: 97760 ==

== ENCOUNTER 2024-03-08 19:15 | Observation (INO) | payer BC, SELFPAY ==
[2024-03-08 19:23] VITALS: BP 143/108; PULSE 109; RESP 20; TEMP 36.5; O2SAT 100
--- NOTE | 2024-03-08 19:28 | PC.NURSE ---
Pt visibly very uncomfortable. Skin pale warm and moist. Resp full and easy Speech clear and appropriate. Pain does not radiate. Pain worse with movement. No saddle numbness no incontinence
--- NOTE | 2024-03-08 19:37 | HMH.EDGENADL ---
Discharge Plan Disposition Patient Disposition: Admitted Condition: Good Prescriptions Prescriptions: No Action venlafaxine 150 mg capsule,extended release 24hr PO Patient Comments: TAKE 1 CAPSULE BY MOUTH ONCE DAILY hydroxyzine pamoate 25 mg capsule PO Patient Comments: TAKE 1 CAPSULE BY MOUTH EVERY 6 TO 8 HOURS NEEDED FOR ANXIETY hydroxyzine HCl 25 mg tablet See Rx Instructions .ROUTE .COMPLEX Qty: 180 3RF Dose Instruction: TAKE 1 TABLET BY MOUTH THREE TIMES DAILY NEEDED FOR ANXIETY Rx Instructions: TAKE 1 TABLET BY MOUTH THREE TIMES DAILY NEEDED FOR ANXIETY venlafaxine 37.5 mg capsule,extended release 24hr 37.5 mg PO DAILY Patient Comments: TAKE 1 CAPSULE BY MOUTH ONCE DAILY FOR 7 DAYS, THEN TAKE 2 CAPSULES ONCE DAILY metoprolol succinate 100 mg tablet extended release 24 hr 100 mg PO DAILY Qty: 90 3RF levothyroxine 100 mcg tablet 100 mcg PO DAILY Patient Comments: TAKE 1 TABLET BY MOUTH ONCE DAILY quetiapine 25 mg tablet 25 mg PO HS Patient Comments: TAKE 1 TABLET BY MOUTH AT BEDTIME prednisone 50 mg tablet 50 mg PO DAILY Qty: 7 0RF cetirizine [Allergy Relief (cetirizine)] 10 mg tablet See Rx Instructions .ROUTE .COMPLEX Qty: 90 0RF Dose Instruction: Take 1 tablet by mouth once daily Rx Instructions: Take 1 tablet by mouth once daily furosemide 40 mg tablet 40 mg PO DAILY Qty: 90 0RF omeprazole 20 mg capsule,delayed release(DR/EC) 20 mg PO DAILY Qty: 30 2RF montelukast 10 mg tablet See Rx Instructions .ROUTE .COMPLEX Qty: 30 0RF Dose Instruction: Take 1 tablet by mouth once daily Rx Instructions: Take 1 tablet by mouth once daily levocetirizine 5 MG tablet 5 mg PO DAILY Referrals Follow up/Referrals: Cezar Mendez MD [Primary Care Provider] - See instructions Activity Restrictions/Add. Instructions Additional Instructions/Restrictions: You were evaluated in the emergency department today. CT scans are concerning for several incidental findings, such as left ovarian cyst, mildly enlarged spleen, fatty liver disease, a renal stone in your left kidney that should not be causing you any pain. Otherwise, your workup is very reassuring. It is possible this pain is all musculoskeletal, especially since you have been walking and usually with your foot in a walking boot and your knee in a brace. We are prescribing a muscle relaxer, anti-inflammatory, and steroid to help with the pain. Please take these at home as prescribed. Do not take ibuprofen or other NSAIDs with Toradol. You may also take Tylenol every 4-6 hours at home as needed for pain as well. Continue using lidocaine patches at home as needed. Follow-up closely with your primary care provider over the next 48 hours. Return to the emergency department for new or worsening symptoms. Clinical Impressions Clinical Impression: Mid back pain on right side, Nausea & vomiting, Hepatic steatosis, Splenomegaly, Cyst of left ovary, Left renal stone Stand Alone Forms Stand Alone Forms: Work/School Release Instructions Patient Instructions: DI for Low Back Pain, DI for Back Spasm Print Language Print Language: Scottish Discharge ED Provider: Mandi Walsh General Adult HPI General Chief complaint: Back Pain/Injury Stated complaint: abd pain back pain vomiting Time Seen by Provider: 03/08/24 19:19 Mode of Arrival: Wheelchair Source of Information: Patient Limitations: No Limitations Description of Symptoms (Recalled from ER Triage Doc. by RN): Pt states she has mid back pain since Friday. Pain 8 on 1-10 scale. Denies incontinence Pain does not radiate. History of Present Illness HPI narrative: This patient is a 38-year-old female with a history of obesity, asthma, histoplasmosis status post pneumonectomy, hypothyroidism presented to the emergency department for evaluation with concern for severe mid back pain that is 8 out of 10 at rest and 10 out of 10 with any movement. She states it is in the right side of her mid back just under her ribs and has been going on since Friday. No falls or injuries noted. She has tried tramadol, lidocaine patches, and [id number] medications at home with no improvement. She also states that she is having sweats and chills secondary to the pain being so severe as well as nausea and vomiting. She denies experiencing any like this in the past. No radiation, no chest pain or shortness of breath, no abdominal pain, no fever, no numbness, tingling, saddle anesthesia, urinary incontinence, urinary retention, changes bowel movements, dysuria, or other concerns. Related Data Home Medications ?Medication ?Instructions ?Recorded ?Confirmed levocetirizine 5 mg tablet 5 mg PO DAILY allergies 09/21/19 03/02/24 venlafaxine 37.5 mg 37.5 mg PO DAILY 08/11/23 03/02/24 capsule,extended release 24 hr levothyroxine 100 mcg tablet 100 mcg PO DAILY 01/05/24 03/02/24 quetiapine 25 mg tablet 25 mg PO HS 01/05/24 03/02/24 hydroxyzine pamoate 25 mg capsule mg PO 01/07/24 03/02/24 venlafaxine 150 mg mg PO 01/07/24 03/02/24 capsule,extended release 24 hr Previous Rx's ?Medication ?Instructions ?Recorded hydroxyzine HCl 25 mg tablet See Rx Instructions .Route 11/20/22 .COMPLEX #180 tabs metoprolol succinate 100 mg 100 mg PO DAILY #90 tabs 10/27/23 tablet,extended release 24 hr cetirizine 10 mg tablet (Allergy See Rx Instructions .Route 12/09/23 Relief (cetirizine)) .COMPLEX #90 tabs furosemide 40 mg tablet 40 mg PO DAILY #90 tabs 12/09/23 prednisone 50 mg tablet 50 mg PO DAILY #7 tabs 01/05/24 omeprazole 20 mg capsule,delayed 20 mg PO DAILY #30 caps 01/26/24 release montelukast 10 mg tablet See Rx Instructions .Route 02/16/24 .COMPLEX #30 tabs Allergies Allergy/AdvReac Type Severity Reaction Status Date / Time mushroom Allergy Unknown Unknown Verified 03/02/24 08:33 allergy reaction [facility] Disclaimer: The information contained in this section may have been updated after the patient was seen, as this information can be updated by other users. 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 Actively retching. Head Head exam: atraumatic and normocephalic Eye Eye exam: Present normal appearance, PERRL and EOMI ENT ENT exam: Present normal exam, normal oropharynx, mucous membranes moist and normal external ear exam Neck Neck exam: Present normal inspection, full ROM and trachea midline; Absent tenderness Chest Chest inspection: Present normal inspection and symmetric chest wall rise; Absent tenderness Respiratory Respiratory exam: Present normal lung sounds bilaterally; Absent respiratory distress, wheezes, stridor or accessory muscle use Cardiovascular Cardiovascular exam: Present normal rhythm and tachycardia Abdominal Exam Abdominal exam: Present soft; Absent distention, tenderness, guarding, rebound or rigidity Extremities Exam Extremities exam: Present normal inspection, full ROM and normal capillary refill; Absent tenderness or edema Back Exam Back exam: Absent full ROM (Limited range of motion secondary to pain, but no reproducible elicited tenderness noted on exam) or vertebral tenderness Neurological Exam Neurological exam: Present alert, oriented X3, CN II-XII intact and normal gait; Absent motor sensory deficit Psychiatric Psychiatric exam: Present normal affect and normal mood Skin Skin exam: Present warm, diaphoresis and pallor Medical Decision Making Medical Records Medical records reviewed: Yes I reviewed the patient's medical records. Screening: Per USPSTF and CDC recommendations, given the prevalence of disease in our region, it is our hospital?s policy to screen for HIV and viral Hepatitis for all patients aged 18 and over and those with ongoing risk factors. Michi Inquiry Pt receiving controlled substance: No Vital Signs: 03/08/24 19:23 03/08/24 20:31 03/08/24 21:01 Temperature 97.7 F Temperature Source Oral Pulse Rate 92 H 90 Pulse Rate [Left Brachial] 109 H Respiratory Rate 20 23 19 Blood Pressure 148/90 H 169/95 H Blood Pressure [Left Arm] 143/108 H Blood Pressure Mean 109 115 Blood Pressure Mean [Left Arm] 119 Blood Pressure Source [Left Arm] Automatic Cuff Blood Pressure Position [Left Arm] Sitting 02 Sat by Pulse Oximetry 100 90 L 95 03/08/24 21:31 03/08/24 22:30 Temperature Temperature Source Pulse Rate 84 91 H Pulse Rate [Left Brachial] Respiratory Rate 20 21 Blood Pressure 148/84 H 147/78 H Blood Pressure [Left Arm] Blood Pressure Mean 105 98 Blood Pressure Mean [Left Arm] Blood Pressure Source [Left Arm] Blood Pressure Position [Left Arm] 02 Sat by Pulse Oximetry 98 97 Lab Data Lab results reviewed: Yes I reviewed the patient's lab results. Lab Results 03/08/24 19:42: Urine Color Yellow, Urine Appearance Clear, Urine pH 6.0, Ur Specific [place] >= 1.030, Urine Protein Negative, Urine Glucose (UA) Negative, Urine Ketones 2+, Urine Blood Negative, Urine Nitrate Negative, Urine Bilirubin 1+ A, Urine Urobilinogen 0.2, Ur Leukocyte Esterase Trace, Urine RBC None, Urine WBC 5-10, Ur Squamous Epith Cells 5-10, Urine Bacteria 3+ 03/08/24 19:45: WBC 11.3 H, RBC 5.30, Hgb 14.9, Hct 43.9, MCV 82.8, MCH 28.1, MCHC 33.9, RDW 15.4, Plt Count 308, MPV 9.4, Neut % (Auto) 80.9 H, Lymph % (Auto) 14.3, [place] % (Auto) 3.4, Eos % (Auto) 1.0, Baso % (Auto) 0.4, Neut # (Auto) 9.1 H, Lymph # (Auto) 1.6, [place] # (Auto) 0.4, Eos # (Auto) 0.1, Baso # (Auto) 0.1, Sodium 138, Potassium 4.2, Chloride 105, Carbon Dioxide 23, Anion Gap 14.2, BUN 11, Creatinine 0.60, Estimated Creat Clear 243, Estimated GFR 111, Est GFR ( Amer) 135, Glucose 126 H, Calcium 9.4, Total Bilirubin 0.8, AST 52 H, ALT 44, Alkaline Phosphatase 72, Troponin I < 0.01, Total Protein 8.1, Albumin 4.8, Globulin 3.3 H, Albumin/Globulin Ratio 1.5, Lipase 88, Serum HCG, Qual Negative, HIV 1&2 Antibody Rapid Nonreactive 03/08/24 21:07: Lactate 1.0 03/08/24 22:34: Troponin I < 0.01 03/08/24 19:45 03/08/24 19:45 Orders (Tests/Meds): ED MEDICATIONS Discontinued Medications Generic Name Dose Route Start Last Admin Trade Name Roger PRN Reason Stop Dose Admin Dexamethasone Sodium Phosphate 10 mg 03/08/24 23:23 03/08/24 23:30 Dexamethasone 4mg/Ml 1ml Vial IV 03/08/24 23:24 10 mg ONCE ONE Administration Diazepam 2.5 mg 03/08/24 23:23 03/08/24 23:29 Diazepam 5mg Tablet PO 03/08/24 23:24 2.5 mg ONCE ONE Administration Hydromorphone HCl 0.5 mg 03/08/24 22:12 03/08/24 22:15 Hydromorphone 2mg/Ml Syringe IV 03/08/24 22:13 0.5 mg ONCE ONE Administration Iopamidol 80 ml 03/08/24 22:02 03/08/24 22:02 Iopamidol-370 (76%);100ml Bottle IV 03/08/24 22:03 80 ml ONCE ONE Administration Ketorolac Tromethamine 15 mg 03/08/24 19:25 03/08/24 19:46 Ketorolac 30mg/Ml Vial IV 03/08/24 19:26 15 mg ONCE ONE Administration Ketorolac Tromethamine 15 mg 03/08/24 23:23 03/08/24 23:30 Ketorolac 30mg/Ml Vial IV 03/08/24 23:24 15 mg ONCE ONE Administration Morphine Sulfate 4 mg 03/08/24 19:25 03/08/24 19:46 Morphine 4mg/Ml Syringe IV 03/08/24 19:26 4 mg ONCE ONE Administration Ondansetron HCl 4 mg 03/08/24 19:25 03/08/24 19:46 Ondansetron 4mg/2ml Vial IV 03/08/24 19:26 4 mg ONCE ONE Administration Promethazine HCl 12.5 mg 03/08/24 20:48 03/08/24 20:57 Promethazine Hcl 25mg/Ml 1ml Vial IV 03/08/24 20:49 12.5 mg ONCE ONE Administration Sodium Chloride 25 ml 03/08/24 20:48 03/08/24 20:57 Sodium Chloride 0.9% 25ml Bag IV 03/08/24 20:49 25 ml ONCE ONE Administration Sodium Chloride 50 ml 03/08/24 22:02 03/08/24 22:02 0.9 % Sodium Chloride 50 Ml Vial IV 03/08/24 22:03 50 ml ONCE ONE Administration Sodium Chloride 10 ml 03/08/24 22:02 03/08/24 22:02 Sodium Chloride 0.9% 10ml Syr (Rad Only) IV 03/08/24 22:03 10 ml ONCE ONE Administration ORDERS Category Date Time Status CT angio abdomen pelvis Stat Cat Scan 03/08/24 20:[address] angio chest PE protocol Stat Cat Scan 03/08/24 20:[address] lumbar spine wo con Stat Cat Scan 03/08/24 20:[address] thoracic spine wo con Stat Cat Scan 03/08/24 20:56 Completed POCUS Point of Care (ER Only) Stat Exams 03/08/24 19:42 Completed Complete Blood Count Auto Diff Stat Lab 03/08/24 19:45 Completed Comprehensive Metabolic Panel Stat Lab 03/08/24 19:45 Completed HIV (1&2) Antibody Rapid Stat Lab 03/08/24 19:45 Completed Hep C Ab with Reflex to RNA Stat Lab 03/08/24 19:45 Received Lactic Acid Stat Lab 03/08/24 21:07 Completed Lipase Stat Lab 03/08/24 19:45 Completed Serum [HCG Qualitative, Serum] Stat Lab 03/08/24 19:45 Completed Trop I [Troponin I] Stat Lab 03/08/24 19:45 Completed Troponin I Q3H Lab 03/08/24 22:34 Completed Troponin I Q3H Lab 03/09/24 01:30 Ordered UA [Urinalysis and Microscopic] Stat Lab 03/08/24 19:42 Completed Urine Culture Stat Micro 03/08/24 19:42 Received ECG Data Tracing #1: I reviewed this ECG and interpreted as documented below: Sinus tachycardia with a ventricular rate of [address]/T wave changes but no acute STEMI. Normal axis and intervals. ECG initial impression date: 03/08/24 ECG initial impression time: 19:50 Medical Decision Narrative: In summary, this patient is a 38-year-old female presenting to the Emergency Department for evaluation of severe back pain, diaphoresis, vomiting. Differential diagnoses considered include but are not limited to musculoskeletal strain/sprain, fracture, aortic pathology, pancreatitis, ureterolithiasis, pyelonephritis, cholecystitis, PE, atypical presentation of ACS, colitis. Ruling out the most morbid conditions drove assessment. It should be noted patient's history includes obesity, hypothyroidism which may or may not be at goal therapy. This complicates all aspects of care by increasing patient's risk for morbidity. I reviewed patient's past medical records and noted recent evaluations by podiatry with concerns for right foot and ankle Achilles tendinitis. Patient reports she is post to be in a boot but is not wearing it today because of the severe symptoms that she is experiencing. On exam, the patient is very uncomfortable appearing, pale, diaphoretic, actively retching. I cannot elicit pain on exam, but she is very uncomfortable with any sort of pain with movement. Workup included CBC, CMP, lipase, troponin, lactic acid, test, urinalysis. I plan to order CT scans to evaluate for underlying cause, but I am awaiting preliminary lab results to see if this helps determine whether angiograms vs abdomen/pelvis with contrast vs noncon would be beneficial. Patient was given IV morphine, Zofran, Toradol for symptomatic improvement of pain and nausea. CT scans are concerning for incidental findings such as left ovarian cyst, left renal stone that is nonobstructing, mild splenomegaly, hepatic steatosis. Patient was notified of all of these. Nothing on imaging that I feel would explain her pain. Family and patient note that is likely musculoskeletal as she has been walking abnormally in a walking boot and knee brace for quite some time. This does fit clinical picture since pain was worse with movement and positions. Labs are reassuring with troponins negative x 2, CBC is reassuring. No significant changes in chemistry and urine is not concerning for infection. On reassessment, the patient did have some continued significant pain and nausea, so she was given small dose of Dilaudid as well as Phenergan. This did significantly help. This was prior to results of imaging. Once imaging resulted and discussions with family were had over pain likely being musculoskeletal, we did trial Valium as a small muscle relaxer as well as dexamethasone and another dose of Toradol for anti-inflammatory properties. After this, plan is to assess the patient's ability to ambulate. If she is able to ambulate without significant issue and has no new symptoms/features or neurologic deficits, I feel she will be appropriate for discharge home with prescriptions for Robaxin, Toradol, prednisone to treat musculoskeletal low back pain. Despite multiple attempted ambulation and pain control, patient still has severe intractable pain and is clutching emesis bag. She is neurologically intact in her lower extremities but cannot walk secondary to the pain and she states she feels lightheaded as well. Ultimately given intractable symptoms, I feel she would benefit from admission and continued management and monitoring. I had an indirect discussion with the hospitalist who admitted the patient. Critical Care Critical Care Time Critical Care Time: No
[2024-03-08] MEDS: ONDANSETRON 4MG/2ML VIAL 4 MG IV (19:46)
[2024-03-08] MEDS: MORPHINE 4MG/ML SYRINGE 4 MG IV (19:46)
[2024-03-08] MEDS: KETOROLAC 30MG/ML VIAL 15 MG IV ×2 (19:46→23:30)
[2024-03-08 19:48] LABS: Microscopic, Urine URINE MICROSCOPIC (MICROSCOPIC)
--- NOTE | 2024-03-08 19:48 | ECG_ITS ---
APPROVED REPORT Exam: Resting ECG HR:104 bpm ECG Measurements Heart Rate 104 AXES AR 194 P 67 QRSd 89 QRS 59 QT 351 T 5 QTc 411 Conclusion SINUS TACHYCARDIA NONSPECIFIC T-WAVE ABNORMALITY ABNORMAL RHYTHM ECG Electronically signed by : RIAN SILVA, 03/08/2024 23:47:04
--- NOTE | 2024-03-08 19:52 | PC.NURSE ---
grandmother at bedside.
[2024-03-08 19:54] LABS: Basophils # 0.1 K/mm3 (0-0.2); Basophils % 0.4 % (0.1-2.0); Eosinophils # 0.1 K/mm3 (0.0-0.4); Hematocrit 43.9 % (37.0-47.0); Hemoglobin 14.9 g/dL (12.2-16.2); Lymphocytes # 1.6 K/mm3 (0.7-4.5); Lymphocytes % 14.3 % (10-50); Mean Corpuscular HGB Conc 33.9 g/dL (31.8-35.4); Mean Corpuscular Hemoglobin 28.1 pg (27.0-31.2); Mean Corpuscular Volume 82.8 fl (81-99); Mean Platelet Volume 9.4 fl (7.4-10.4); Monocytes # 0.4 K/mm3 (0.1-1.0); Monocytes % 3.4 % (1.7-9.3); Neutrophils # 9.1 K/mm3 (1.8-7.8); Neutrophils % 80.9 % (37.0-80.0); Platelet Count 308 K/mm3 (142-424); Red Cell Distribution Width 15.4 % (11.5-17.5); White Blood Count 11.3 K/mm3 (4.8-10.8)
[2024-03-08 20:00] LABS: Appearance,Urine CLEAR (Clear); Blood, Urine Negative (Negative); Color,Urine YELLOW (Yellow); Glucose,Urine (UA) Negative (Negative); Ketones,Urine 2+ (Negative); Leukocyte Esterase,Urine TRACE (Negative); Nitrate,Urine Negative (Negative); Protein,Urine Negative (Negative); Specific Gravity, Urine >= 1.030 (1.005-1.030); Urobilinogen,Urine 0.2 EU/dl (0.2)
[2024-03-08 20:04] LABS: Albumin Level 4.8 g/dl (3.5-5.0); Chloride 105 mmol/L (98-107)
[2024-03-08 20:05] LABS: Potassium 4.2 mmoL/L (3.5-5.1); Sodium 138 mmol/L (136-145)
[2024-03-08 20:07] LABS: Alanine Aminotransferase 44 U/L (12-78); Alkaline Phosphatase 72 U/L (38-126); Anion Gap 14.2 mEq/L (5-15); Aspartate Amino Transferase 52 U/L (14-36); Bilirubin,Total 0.8 mg/dl (0.2-1.3); Blood Urea Nitrogen 11 mg/dl (7-17); Carbon Dioxide 23 mmol/L (22.0-30.0); Creatinine Clearance Estimated 243 mL/min (50-200); Estimated Glomerular Filt Rate 111 ml/min (>60); GFR (African American) 135 ML/MIN (>60)
[2024-03-08 20:08] LABS: Albumin/Globulin Ratio 1.5 (1.1-1.8); Calcium 9.4 mg/dl (8.4-10.2); Globulin 3.3 g/dL (1.3-3.2); Glucose 126 mg/dl (74-100); Lipase 88 U/L (23-300); Total Protein,Serum 8.1 g/dl (6.3-8.2)
[2024-03-08 20:09] LABS: HCG Qualitative, Serum Negative (Negative)
[2024-03-08 20:10] LABS: Bilirubin,Urine 1+ (Negative)
[2024-03-08 20:28] LABS: Troponin I < 0.01 ng/ml (0.00-0.034)
[2024-03-08 20:31] VITALS: BP 148/90; PULSE 92; RESP 23; O2SAT 90
[2024-03-08 20:39] LABS: HIV (1&2) Antibody Rapid NONREACTIVE (NONREACTIVE)
[2024-03-08 20:54] LABS: Bacteria,Urine 3+ /lpf
--- NOTE | 2024-03-08 20:56 | CT_ITS ---
PROCEDURE INFORMATION: Exam: CT Lumbar Spine Without Contrast Exam date and time: 03/08/2024 9:43 PM Age: 38 years old Clinical indication: Low back pain; Additional info: Severe back pain out of proportion TECHNIQUE: Imaging protocol: Computed tomography of the lumbar spine without contrast. Radiation optimization: All CT scans at this facility use at least one of these dose optimization techniques: automated exposure control; mA and/or kV adjustment per patient size (includes targeted exams where dose is matched to clinical indication); or iterative reconstruction. COMPARISON: CT THORACIC SPINE WO CON 03/08/2024 9:41 PM FINDINGS: Bones/joints: No acute fracture. Liver: Partially visualized hepatic steatosis. Kidneys and ureters: 1 mm stone left kidney upper pole. Soft tissues: Unremarkable. IMPRESSION: 1. No evidence for acute fracture. 2. 1 mm stone left kidney upper pole. 3. Partially visualized hepatic steatosis.
--- NOTE | 2024-03-08 20:56 | CT_ITS ---
PROCEDURE INFORMATION: Exam: CT Thoracic Spine Without Contrast Exam date and time: 03/08/2024 9:41 PM Age: 38 years old Clinical indication: Pain in thoracic spine; Additional info: Severe back pain out of proportion TECHNIQUE: Imaging protocol: Computed tomography of the thoracic spine without contrast. Radiation optimization: All CT scans at this facility use at least one of these dose optimization techniques: automated exposure control; mA and/or kV adjustment per patient size (includes targeted exams where dose is matched to clinical indication); or iterative reconstruction. COMPARISON: CT THORACIC SPINE WO CON 03/08/2024 9:41 PM FINDINGS: Bones/joints: No acute fracture. Soft tissues: Unremarkable. Liver: Partially visualized hepatic steatosis Kidneys and ureters: 1 mm stone left kidney upper pole. IMPRESSION: 1. No evidence for acute fracture. 2. 1 mm stone left kidney upper pole intra caliceal stone is nonobstructing.
--- NOTE | 2024-03-08 20:56 | CT_ITS ---
PROCEDURE INFORMATION: Exam: CTA Chest With Contrast Exam date and time: 03/08/2024 9:46 PM Age: 38 years old Clinical indication: Other: Severe back/lower chest pain TECHNIQUE: Imaging protocol: Computed tomographic angiography of the chest with contrast. Exam focused on the arteries. 3D rendering (Not supervised by radiologist): MIP and/or 3D reconstructed images were created by the technologist. Radiation optimization: All CT scans at this facility use at least one of these dose optimization techniques: automated exposure control; mA and/or kV adjustment per patient size (includes targeted exams where dose is matched to clinical indication); or iterative reconstruction. Contrast material: ISOVUE 370; Contrast volume: 80 ml; Contrast route: INTRAVENOUS (IV); COMPARISON: CT ANGIO CHEST 06/13/2020 1:50 PM FINDINGS: Pulmonary arteries: No CT evidence for pulmonary embolism. Great vessels off aortic arch: The mediastinal structures including the esophagus, trachea, great vessels, and heart show no evidence of injury or acute pathologic processes. Aorta: Unremarkable. No aortic aneurysm. No aortic dissection. Lungs: No acute infiltrates.. Pleural spaces: Unremarkable. No pneumothorax. No pleural effusion. Heart: See Great vessels off aortic arch finding. Lymph nodes: Unremarkable. No enlarged lymph nodes. Liver: Partially visualized severe hepatic steatosis. Spleen: Spleen is at the upper limits of normal in size. Bones/joints: Unremarkable. No acute fracture. Soft tissues: Chest wall subcutaneous tissues and musculature appear unremarkable. IMPRESSION: 1. No CT evidence for pulmonary embolism. 2. No acute infiltrates.. 3. Partially visualized severe hepatic steatosis. 4. Spleen is at the upper limits of normal in size.
--- NOTE | 2024-03-08 20:56 | CT_ITS ---
PROCEDURE INFORMATION: Exam: CTA Abdomen and Pelvis With Contrast Exam date and time: 03/08/2024 9:46 PM Age: 38 years old Clinical indication: Abdominal pain; Acute; Additional info: Severe back pain out of proportion TECHNIQUE: Imaging protocol: Computed tomographic angiography of the abdomen and pelvis with contrast. Exam focused on the arteries. 3D rendering (Not supervised by radiologist): MIP and/or 3D reconstructed images were created by the technologist. Radiation optimization: All CT scans at this facility use at least one of these dose optimization techniques: automated exposure control; mA and/or kV adjustment per patient size (includes targeted exams where dose is matched to clinical indication); or iterative reconstruction. Contrast material: ISOVUE; Contrast volume: 80 ml; Contrast route: INTRAVENOUS (IV); COMPARISON: MR ABDOMEN WO CON 09/05/2020 9:28 AM FINDINGS: Aorta: No aortic aneurysm. No aortic dissection. Celiac trunk and mesenteric arteries: No occlusion or significant stenosis. Renal arteries: No occlusion or significant stenosis. Right iliac arteries: No occlusion or significant stenosis. Left iliac arteries: No occlusion or significant stenosis. Liver: Severe hepatic steatosis. Gallbladder and biliary ducts: Unremarkable. No calcified stones. No ductal dilation. Pancreas: The pancreas is normal. Spleen: Spleen at the upper limits of normal in size. No focal splenic lesions. Adrenal glands: The adrenal glands appear within normal limits. Kidneys and ureters: The kidneys are normal. 1 mm nonobstructing stone left kidney upper pole. Stomach and bowel: The stomach appears within normal limits. No wall thickening or inflammatory change. Appendix: No evidence of appendicitis. Intraperitoneal space: No free air. No evidence for focal fluid collection or ascites. No evidence for omental thickening. Lymph nodes: Unremarkable. No pathologically enlarged lymph nodes are identified. Unremarkable. No pathologically enlarged lymph nodes are identified. Urinary bladder: The bladder appears within normal limits. No wall thickening. Reproductive: Simple left ovarian cyst measures 3.2 cm. Bones/joints: No acute fracture. Soft tissues: Unremarkable. IMPRESSION: 1. Severe hepatic steatosis. 2. Spleen at the upper limits of normal in size. No focal splenic lesions. 3. Simple left ovarian cyst measures 3.2 cm. 4. 1 mm nonobstructing stone left kidney upper pole. 5. No CT evidence for aortic dissection or aneurysm.
[2024-03-08] MEDS: PROMETHAZINE HCL 25MG/ML 1ML VIAL 12.5 MG IV (20:57)
[2024-03-08] MEDS: SODIUM CHLORIDE 0.9% 25ML BAG 25 ML IV (20:57)
[2024-03-08 21:01] VITALS: BP 169/95; PULSE 90; RESP 19; O2SAT 95
[2024-03-08 21:31] VITALS: BP 148/84; PULSE 84; RESP 20; O2SAT 98
[2024-03-08] MEDS: 0.9 % SODIUM CHLORIDE 50 ML VIAL IV (22:02)
[2024-03-08] MEDS: SODIUM CHLORIDE 0.9% 10ML SYR (RAD ONLY) 10 ML IV (22:02)
[2024-03-08] MEDS: IOPAMIDOL-370 (76%);100ML BOTTLE 80 ML IV (22:02)
--- NOTE | 2024-03-08 22:03 | PC.NURSE ---
Pt back from CT scan
[2024-03-08] MEDS: HYDROMORPHONE 2MG/ML SYRINGE 0.5 MG IV (22:15)
[2024-03-08 22:30] VITALS: BP 147/78; PULSE 91; RESP 21; O2SAT 97
--- NOTE | 2024-03-08 22:37 | PC.NURSE ---
2nd johnson sent to lab at this time
[2024-03-08 23:19] LABS: Troponin I < 0.01 ng/ml (0.00-0.034)
[2024-03-08] MEDS: diazePAM 5MG TABLET 2.5 MG PO (23:29)
[2024-03-08] MEDS: DEXAMETHASONE 4MG/ML 1ML VIAL 10 MG IV (23:30)
[2024-03-09] VITALS (8 sets, daily range): BP systolic 125–155; BP diastolic 76–90; PULSE 76–95; RESP 16–20; TEMP 36.4–36.8; O2SAT 93–99; BMI 41.6; BMI 41.7
--- NOTE | 2024-03-09 | PC.NURSE ---
Attempted to ambulate patient She was not able to tolerate pain with standing. MD pa
--- NOTE | 2024-03-09 00:43 | PC.NURSE ---
report given to DANI Guerrero on second floor.
--- NOTE | 2024-03-09 00:54 | PC.NURSE ---
Patient arrived to floor via stretcher from ED at 00:53.
[2024-03-09] MEDS: CYCLOBENZAPRINE 10MG TABLET 5 MG PO (01:13)
--- NOTE | 2024-03-09 02:03 | P.HP_ITS ---
<Statement entered by Errol Johnson MD - 03/14/24 14:25> I personally evaluated patient and agree with plan of care as outlined by NUCLEAR MEDICINE TECHNOLOGIST below. History of Present Illness *Admission Date: 03/09/24 *Reason for visit:: Significant back pain to the point of nausea vomiting *History of present illness: Ms. Kelly is a 38-year-old obese female, has been brought to the emergency room because her back pain right side has become so bad over the last 2 days that she is unable to walk. She also has started vomiting due to the pain. She also describes a small amount of dizziness whenever she is having this trouble. She denies any recent injuries., She has a history of having shingles several times., But this pain is being noted as deeper and her shingles pain has never caused her vomiting and not being able to walk before. She has been being treated for an Achilles tendinitis of the right leg had been wearing a walking boot. This caused her to walk differently she had to wear a left knee brace due to straining it.. But she denies any injury fall or lifting that would have caused this kind of pain. Patient was seen by the emergency room physician and given many different medications to see if the pain could be diminished. But this has been without success. I have come down and evaluated the patient examined her, and do agree and her present condition she really cannot ambulate by herself. And that it being helped she is in terrible pain. Did not find any secondary source for the injury and or illness for this. Basic labs and all workup by scans do not show any obvious causes.. So I do agree with the ER physician that we need to place her in with care and comfort do a physical therapy consult and evaluate her if further testing would be needed. So I will admit her to the floor as observation [facility] Disclaimer: The information contained in this section may have been updated after the patient was seen, as this information can be updated by other users. Medical History (Updated 03/09/24 @ 03:24 by Govind Bermudez APRN) Histoplasmosis pneumonia Generalized muscle ache Wrist fracture Peripheral edema Dyspnea Sinusitis COVID-19 virus infection Encounter for laboratory testing for COVID-19 virus History of COVID-19 Atypical chest pain Otitis media Pharyngitis Heart palpitations Edema of both ankles Achilles tendinitis of right lower extremity Calcaneal spur of right foot Edema of both lower extremities Strain of right Achilles tendon, initial encounter Depression Atypical angina Palpitations Asthma Surgical History (Updated 03/09/24 @ 02:10 by Govind Bermudez APRN) H/O pneumonectomy History of thoracotomy History of dilation and curettage Family History Grandfather Coronary artery disease Mother Coronary artery disease Father Coronary artery disease Grandmother Coronary artery disease Social History Smoking Status: Never smoker alcohol intake: never substance use type: denies use current occupational status: employed Travel in the last 8 weeks: None household members: none housing: house 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 current occupational exposures/hazards: Yes caffeine: Yes Other Medical History Have you received the Flu Vaccine for this season: Yes Have you received the Pneumonia Vaccine: Yes Review of Systems Review of Systems Review of systems:: pertinent systems reviewed and negative unless documented below Review of systems (narrative): Patient was examined and interviewed in the emergency room, patient still having nausea and significant amounts of pain, noted [id number] lighted Derm patch onto the back where the pain was the worst Constitutional Constitutional: Reports as per HPI and Reports headache(s) Comments: In significant amounts of pain with nausea and vomiting and has not slept for over 24 hours Eyes Eyes: Reports as per HPI ENT Ears, Nose, Mouth, and Throat: Reports as per HPI, Reports change in voice (Patient due to vomiting has a very harsh raspy voice) and Reports headache(s) *Cardiovascular Cardiovascular: Reports as per HPI Comments: Patient has multiple area of pain but denies chest pain *Respiratory Respiratory: Reports as per HPI Comments: Patient denies cough or shortness of breath *Gastrointestinal Gastrointestinal: Reports as per HPI, Reports abdominal pain (Left upper quadrant pain), Reports nausea and Reports vomiting Comments: Patient feels her nausea and vomiting is related to her level of pain *Genitourinary Genitourinary: Reports as per HPI *Musculoskeletal Musculoskeletal: Reports as per HPI Integumentary/Breasts Skin/Breast: Reports as per HPI *Neurologic Neurologic: Reports as per HPI, Reports headache(s) and Reports radicular pain Psychiatric Psychiatric: Reports as per HPI Comments: Patient gives a history of anxiety/depression Endocrine Comments: 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 Hematologic/Lymphatic Hematologic/Lymphatic: Reports as per HPI Allergic/Immunologic Allergic/Immunologic: Reports as per HPI Meds Home Medications and Allergies Home Medications ?Medication ?Instructions ?Recorded ?Confirmed ?Type levocetirizine 5 mg tablet 5 mg PO DAILY allergies 09/21/19 03/09/24 History hydroxyzine HCl 25 mg tablet See Rx Instructions .Route 11/20/22 03/09/24 Rx .COMPLEX #180 tabs venlafaxine 37.5 mg 37.5 mg PO DAILY 08/11/23 03/09/24 History capsule,extended release 24 hr metoprolol succinate 100 mg 100 mg PO DAILY #90 tabs 10/27/23 03/09/24 Rx tablet,extended release 24 hr cetirizine 10 mg tablet (Allergy See Rx Instructions .Route 12/09/23 03/09/24 Rx Relief (cetirizine)) .COMPLEX #90 tabs furosemide 40 mg tablet 40 mg PO DAILY #90 tabs 12/09/23 03/09/24 Rx levothyroxine 100 mcg tablet 100 mcg PO DAILY 01/05/24 03/09/24 History quetiapine 25 mg tablet 25 mg PO HS 01/05/24 03/09/24 History hydroxyzine pamoate 25 mg capsule 25 mg PO BID 01/07/24 03/09/24 History venlafaxine 150 mg 150 mg PO DAILY 01/07/24 03/09/24 History capsule,extended release 24 hr omeprazole 20 mg capsule,delayed 20 mg PO DAILY #30 caps 01/26/24 03/09/24 Rx release montelukast 10 mg tablet See Rx Instructions .Route 02/16/24 03/09/24 Rx .COMPLEX #30 tabs New Prescriptions to Start Prescriptions: Allergies Allergy/AdvReac Type Severity Reaction Status Date / Time mushroom Allergy Unknown Unknown Verified 03/02/24 08:33 allergy reaction Exam Data for Last 24 hours Vital signs and Labs for Last 24 Hours: Temp Pulse Resp BP Pulse Ox O2 Del Method 98.3 F 92 H 16 149/76 H 97 Room Air 03/09/24 00:14 03/09/24 01:00 03/09/24 01:00 03/09/24 01:00 03/09/24 01:00 03/09/24 01:00 Laboratory Results - last 24 hr 03/08/24 19:42: Urine Color Yellow, Urine Appearance Clear, Urine pH 6.0, Ur Specific [place] >= 1.030, Urine Protein Negative, Urine Glucose (UA) Negative, Urine Ketones 2+, Urine Blood Negative, Urine Nitrate Negative, Urine Bilirubin 1+ A, Urine Urobilinogen 0.2, Ur Leukocyte Esterase Trace, Urine RBC None, Urine WBC 5-10, Ur Squamous Epith Cells 5-10, Urine Bacteria 3+ 03/08/24 19:45: WBC 11.3 H, RBC 5.30, Hgb 14.9, Hct 43.9, MCV 82.8, MCH 28.1, MCHC 33.9, RDW 15.4, Plt Count 308, MPV 9.4, Neut % (Auto) 80.9 H, Lymph % (Auto) 14.3, Edwards % (Auto) 3.4, Eos % (Auto) 1.0, Baso % (Auto) 0.4, Neut # (Auto) 9.1 H, Lymph # (Auto) 1.6, Edwards # (Auto) 0.4, Eos # (Auto) 0.1, Baso # (Auto) 0.1, Sodium 138, Potassium 4.2, Chloride 105, Carbon Dioxide 23, Anion Gap 14.2, BUN 11, Creatinine 0.60, Estimated Creat Clear 243, Estimated GFR 111, Est GFR ( Amer) 135, Glucose 126 H, Calcium 9.4, Total Bilirubin 0.8, AST 52 H, ALT 44, Alkaline Phosphatase 72, Troponin I < 0.01, Total Protein 8.1, Albumin 4.8, Globulin 3.3 H, Albumin/Globulin Ratio 1.5, Lipase 88, Serum HCG, Qual Negative, HIV 1&2 Antibody Rapid Nonreactive 03/08/24 21:07: Lactate 1.0 03/08/24 22:34: Troponin I < 0.01 I & O for Last 24 hours: Intake & Output 03/06/24 03/07/24 03/08/24 03/09/24 05:59 05:59 05:59 05:59 Weight 265 lb 14.4 oz Radiology Reports for the Last 24 Hours: Agree with the radiology reports have looked at the films myself and find no acute findings for this kind of pain or new onset of nausea vomiting Constitutional Constitutional: severe distress and obese Comments: Patient appears tired worn out, stating she has not sleep for quite some time, she is in pain that is worse when she is moving. Has only vomited twice but while moving becomes nauseated and dry heaves *Routine HEENT Exam Head: Present normocephalic and atraumatic Eye: Present EOMI, PERRL and normal accommodation ENT: Present mucous membranes moist *Routine Neck Exam Neck: Present supple and full ROM Routine Chest/Breast/Axilla Exam Comments: No chest wall tenderness was found on the exam *Routine Respiratory Exam Respiratory: Present CTA bilaterally, normal respiratory effort, able to speak in complete sentences and symmetric chest movement Comments: Lung sounds were clear throughout all rocha equal expansion with no signs of shunting *Routine Cardiovascular Exam Cardiovascular: Present RRR, Normal S1, Normal S2 and tachycardia *Routine Abdominal Exam Abdominal: Present soft, tenderness (Left upper quadrant tenderness to palpation repeatable , causing 7 out of 10 pain to palpation, CT scan noted spleen at upper limits of normal could not feel it during the exam) and obese *Routine Rectal Exam Rectal:: deferred *Routine Genitalia Exam Genitalia:: deferred *Routine Extremities Exam Extremities: Present edema (Trace edema to lower extremities versus being her normal self and that this is just that she has very thick limbs in the lower extremities) Comments: Found no tenderness in the lower extremities. Circulation was good Routine Back/Spine/Pelvis Exam Back image: 2 1. Area of pain *Routine Skin Exam Skin: Present intact, warm and normal turgor Comments: Could find no sign of rash that would indicate shingles *Routine Neurological Exam Neurological: Present oriented X3, CN II-XII intact, normal tone and normal speech Routine Psychiatric Exam Psychiatric: Present normal affect, normal thought process, cooperative, good insight and good judgment Comments: Even though the patient is sick and in pain she answers questions well and was appropriate H&P: Result Impressions 1. Right back flank pain, unknown cause, question related possibly to wearing a boot due to Achilles tendinitis, no signs of shingles which has been a past problem for the patient 2. Nausea and vomiting and dizziness, patient states that that bad of pain that whenever she moves she actually wants to throw up 3. Left upper quadrant abdominal pain to palpation 4. Achilles tendinitis being worked on by her provider 5. Question autoimmune disease has Deborah's thyroiditis also noting to having shingles multiple times Imaging and Cardiology CT scan - abdomen: Status: image reviewed by me Additional comments: No acute processes found Assessment and Plan *Assessment and plan (1) Nausea & vomiting: Status: Acute Qualifiers: Vomiting type: unspecified Qualified Code(s): R11.2 - Nausea with vomiting, unspecified Category: Medical Code(s): R11.2 - Nausea with vomiting, unspecified (2) Midline low back pain with right-sided sciatica: Status: Acute Qualifiers: Chronicity: acute Qualified Code(s): M54.41 - Lumbago with sciatica, right side Category: Medical Code(s): M54.41 - Lumbago with sciatica, right side (3) Left upper quadrant abdominal pain: Status: Acute Category: Medical Code(s): R10.12 - Left upper quadrant pain (4) Peroneal tendonitis of right lower leg: Status: Acute Category: Medical Code(s): M76.71 - Peroneal tendinitis, right leg (5) Knee pain: Status: Acute Qualifiers: Chronicity: unspecified Laterality: left Qualified Code(s): M25.562 - Pain in left knee Category: Medical Code(s): M25.569 - Pain in unspecified knee (6) Deborah's thyroiditis: Status: Acute Category: Medical Code(s): E06.3 - Autoimmune thyroiditis Plan 1. For back pain abdominal pain causing nausea and vomiting, will have physical therapy consult to evaluate any ambulation needs. Work on pain control tonight., Was unable to find direct cause. The back pain does not appear to be skin but muscle/rib cage kind of pain. Worse with any movement. Then on abdominal exam finding the left upper quadrant pain that is reproducible every time with moderate palpation 7 out of 10 pain. Will have physical therapy see the patient in the morning. Unknown cause for this may just be related to the fact she was wearing a walking boot related to her Achilles tendon problems. But patient has a very interesting history of having shingles several times Deborah's thyroiditis, also a history of histoplasmosis with a lung wedge resection. Due to the vomiting having the patient rest tonight see if she will be able to consume fluids and eat tomorrow.
[2024-03-09 02:59] LABS: Troponin I < 0.01 ng/ml (0.00-0.034)
--- NOTE | 2024-03-09 05:04 | PC.NURSE ---
Since arriving to the floor the patient has been resting comfortably. She was in a lot of pain transferring from the stretcher to the bed when she got to the floor but her pain has since calmed down with limited movement. no other issues
[2024-03-09] MEDS: HYDROMORPHONE 2MG/ML SYRINGE 2 MG IV ×4 (05:35→19:50)
[2024-03-09 05:57] LABS: Basophils % 0.2 % (0.1-2.0); Eosinophils % 0.4 % (0.1-12.0); Hematocrit 41.5 % (37.0-47.0); Hemoglobin 14.2 g/dL (12.2-16.2); Lymphocytes # 0.8 K/mm3 (0.7-4.5); Lymphocytes % 7.8 % (10-50); Mean Corpuscular HGB Conc 34.4 g/dL (31.8-35.4); Mean Corpuscular Hemoglobin 28.5 pg (27.0-31.2); Mean Platelet Volume 9.4 fl (7.4-10.4); Monocytes # 0.2 K/mm3 (0.1-1.0); Monocytes % 1.6 % (1.7-9.3); Neutrophils # 8.6 K/mm3 (1.8-7.8); Platelet Count 286 K/mm3 (142-424); Red Cell Distribution Width 15.4 % (11.5-17.5); White Blood Count 9.6 K/mm3 (4.8-10.8)
[2024-03-09 06:02] LABS: MANUAL DIFFERENTIAL MANUAL DIFFERENTIAL (MANUAL DIFF)
[2024-03-09 06:06] LABS: Albumin Level 4.4 g/dl (3.5-5.0); Chloride 105 mmol/L (98-107); Potassium 4.4 mmoL/L (3.5-5.1); Sodium 138 mmol/L (136-145)
[2024-03-09 06:07] LABS: Lactic Acid 2.1 mmol/L (0.7-2.1)
[2024-03-09 06:09] LABS: Alanine Aminotransferase 43 U/L (12-78); Albumin/Globulin Ratio 1.4 (1.1-1.8); Alkaline Phosphatase 79 U/L (38-126); Anion Gap 13.4 mEq/L (5-15); Aspartate Amino Transferase 40 U/L (14-36); Bilirubin,Total 0.4 mg/dl (0.2-1.3); Blood Urea Nitrogen 11 mg/dl (7-17); Calcium 9.2 mg/dl (8.4-10.2); Carbon Dioxide 24 mmol/L (22.0-30.0); Creatinine Clearance Estimated 118 mL/min (50-200); Estimated Glomerular Filt Rate 111 ml/min (>60); GFR (African American) 135 ML/MIN (>60); Globulin 3.1 g/dL (1.3-3.2); Glucose 159 mg/dl (74-100); Total Protein,Serum 7.5 g/dl (6.3-8.2)
[2024-03-09] MEDS: KETOROLAC 30MG/ML VIAL 15 MG IV (08:26)
[2024-03-09] MEDS: LEVOTHYROXINE 100MCG (0.1MG) TAB 100 MCG PO (08:27)
[2024-03-09] MEDS: VENLAFAXINE XR 75MG CAPSULE 225 MG PO (08:27)
[2024-03-09] MEDS: METOPROLOL SUCCINATE XL 100MG TABLET 100 MG PO (08:27)
[2024-03-09] MEDS: hydrOXYzine pamoate 25MG CAPSULE 25 MG PO ×2 (08:27→20:09)
[2024-03-09 08:48] LABS: Monoscreen (Rapid) Negative (Negative)
[2024-03-09 09:49] LABS: Reflex Lactic Add Lactic Reflex
--- NOTE | 2024-03-09 10:10 | HMH.PHAINT1 ---
Pharmacy Intervention Comments: HOME MEDICATION LIST VERIFIED USING LIST FROM OUTPATIENT PHARMACY
[2024-03-09] MEDS: SODIUM CHLORIDE 3% 15ML NEB 3 ML IH (10:47)
[2024-03-09 10:57] LABS: Lactic Acid Follow Up (RFLX 1) 1.3 mmol/L (0.7-2.1)
[2024-03-09] MEDS: KETOROLAC 30MG/ML VIAL 30 MG IV ×2 (11:18→17:30)
[2024-03-09] MEDS: PROMETHAZINE HCL 25MG/ML 1ML VIAL 12.5 MG IV (11:27)
[2024-03-09] MEDS: SODIUM CHLORIDE 0.9% 25ML BAG 25 ML IV (11:28)
[2024-03-09 12:38] LABS: Lymphocytes % 8 % (10-50); Monocytes % 3 % (2-9); Neutrophils % 83 % (42-76); Total Cells Counted 100
[2024-03-09 12:39] LABS: Platelet Estimate Normal; RBC Morphology Normal
--- NOTE | 2024-03-09 13:24 | HMH.PTEV ---
Physical Therapy Evaluation Rehab PT IP Evaluation Start: 03/09/24 00:36 Freq: ONCE Status: Active Protocol: Document 03/09/24 13:19 DASIA (Rec: 03/09/24 13:24 DASIA [id number]) Subjective/History History History Per H&P: Ms. Kelly is a 38 -year-old obese female, has been brought to the emergency room because her back pain right side has become so bad over the last 2 days that she is unable to walk. She also has started vomiting due to the pain. She also describes a small amount of dizziness whenever she is having this trouble. She denies any recent injuries., She has a history of having shingles several times., But this pain is being noted as deeper and her shingles pain has never caused her vomiting and not being able to walk before. She has been being treated for an Achilles tendinitis of the right leg had been wearing a walking boot. This caused her to walk differently she had to wear a left knee brace due to straining it.. But she denies any injury fall or lifting that would have caused this kind of pain. Patient was seen by the emergency room physician and given many different medications to see if the pain could be diminished. But this has been without success. I have come down and evaluated the patient examined her, and do agree and her present condition she really cannot ambulate by herself. And that it being helped she is in terrible pain. Did not find any secondary source for the injury and or illness for this. Basic labs and all workup by scans do not show any obvious causes.. So I do agree with the ER physician that we need to place her in with care and comfort do a physical therapy consult and evaluate her if further testing would be needed. So I will admit her to the floor as observation Subjective Subjective Pt was IND with all mobility prior to admission. Pt was working FT and has custody of her 10 y/o niece. Pt denies history of back pain this severe. I was cooking on Friday and started to notice the pain. New diagnosis of cancer in past 12 No months? Rehab PT IP Eval Objective Appearance Patient Behavior Appropriate,Cooperative Patient Orientation Person,Place,Birthday, Situation Difficulty following instructions none Speech Pattern Clear Ambulation Patient Able to Ambulate No Balance Ability to Arise Able, uses arms to help Sitting Balance Steady, safe Standing Balance Steady, wide stance Transfers Bed Transfer Ability Minimal x 1 (25% assist) Sit to Stand Bed Transfer Ability Minimal x 1 (25% assist) Rehab PT IP prob,goals,plan Problems Date of Evaluation: 03/09/24 PT IP Problems Transfers,Gait,Self care, Safety Rehab Potential Rehab Potential Good Equipment Needs Assistive Devices Rolling / Wheeled Walker Plan Other Intervention Plan 1-2 times PT Plan Frequency Daily Duration LOS Discharge Goals Bed Transfer Ability Independent Sit to Stand Chair Transfer Ability Independent Discharge Plan PT Discharge Plan Pt presents below baseline in mobility d/t pain. Pt required Min-mod A with bed mobility, STS, and side stepping towards HOB. Pt is limited by back pain. PT recommending return home when medically necessary with assistance as needed provided by family. Eval Complexity Eval Charge Codes 48217 - Moderate Complexity PHYSICIAN CERTIFICATION: I certify the specified therapy services for Kris Kelly are required, authorized, and reviewed every 30 days.
--- NOTE | 2024-03-09 13:33 | HMH.OTEV ---
OT Inpatient Evaluation Rehab OT IP Evaluation Start: 03/09/24 00:36 Freq: ONCE Status: Active Protocol: [facility]09[facility]24 13:[facility] (Rec: 03/09/24 13:33 [facility] [id number]) Rehab OT IP Assessment Subjective History Pt oriented x 3 on arrival. Pt agreeable to engage in therapy evaluation. Pt admitted on 03/09/24 due to significant back pain. History and Physical report: Ms. Kelly is a 38-year-old obese female, has been brought to the emergency room because her back pain right side has become so bad over the last 2 days that she is unable to walk. She also has started vomiting due to the pain. She also describes a small amount of dizziness whenever she is having this trouble. She denies any recent injuries., She has a history of having shingles several times., But this pain is being noted as deeper and her shingles pain has never caused her vomiting and not being able to walk before. She has been being treated for an Achilles tendinitis of the right leg had been wearing a walking boot. This caused her to walk differently she had to wear a left knee brace due to straining it.. But she denies any injury fall or lifting that would have caused this kind of pain. Patient was seen by the emergency room physician and given many different medications to see if the pain could be diminished. But this has been without success. I have come down and evaluated the patient examined her, and do agree and her present condition she really cannot ambulate by herself. And that it being helped she is in terrible pain. Did not find any secondary source for the injury and or illness for this. Basic labs and all workup by scans do not show any obvious causes.. So I do agree with the ER physician that we need to place her in with care and comfort do a physical therapy consult and evaluate her if further testing would be needed. So I will admit her to the floor as observation Subjective I am just in so much pain. Prior to being in the hospital , pt was independent with all ADLs and IADLs. Pt also worked fulltime and was still driving. Pt did not require any type of AE during functional transfers. Objective Patient Orientation Person,Name,Birthday Right Upper Extremity Gross ROM WFL Left Upper Extremity Gross ROM WFL Bed Mobility bed mobility-scooting,bed mobility - supine/sit Assist Level Minimal x 1 (25% assist) Transfer Training Sit/Stand/Step Transfer Assist Level Minimal x 1 (25% assist) Rehab OT IP prob,goals,plan Problems Date of Evaluation: 03/09/24 OT IP Problems Bed Mobility,Transfers,Balance ,Self care,Safety Rehab Potential Rehab Potential Good Equipment Needs Assistive Devices Rolling / Wheeled Walker Plan OT intervention Plan Bed Mobility,Transfers,Balance ,Self care,Safety,Therapeutic Exercise OT Plan Frequency Daily Duration LOS Discharge Goals Sit to Stand Chair Transfer Ability Contact Guard/Hand Hold Chair Transfer Ability Contact Guard/Hand Hold Chair Transfer Technique Sit to/from Ambulatory Chair Transfer Assistive Devices None Feeding Ability Assist with Tray Set Up Lower Body Dressing Ability Minimal Assistance Upper Body Dressing Ability Standby Assistance Bathing Ability Minimal Assistance Performing Toilet Hygiene Ability Standby Assistance Overall Commode/Toilet Transfer Ability Standby Assistance Commode/Toilet Transfer Technique Sit to/from Ambulatory Commode/Toilet Transfer Assistive Grab Bars Devices Oral Care Assist Standby Assistance Decrease in Endurance No Discharge Plan OT Discharge Plan Pt will continue to be seen for OT services while at [facility]. Pt can return home with assistance from family as needed once she is medically stable per physician. Eval Complexity Eval Charge Codes 91113 - Moderate Complexity PHYSICIAN CERTIFICATION: I certify the specified therapy services for Kris Kelly are required, authorized, and reviewed every 30 days.
[2024-03-09] MEDS: CYCLOBENZAPRINE 10MG TABLET 10 MG PO (13:55)
--- NOTE | 2024-03-09 18:12 | P.PN_ITS ---
Subjective *Date: 03/21/24 *Time: 21:22 Interval history: Continues to have significant back pain with movement. Unable to participate with PT/OT due to pain. Will start Toradol as primary analgesic. Exam Data for Last 24 hours Vital signs and Labs for Last 24 Hours: Temp Pulse Resp BP Pulse Ox O2 Del Method 97.6 F 84 16 155/83 H 94 L Room Air 03/09/24 16:00 03/09/24 16:00 03/09/24 16:00 03/09/24 16:00 03/09/24 16:00 03/09/24 16:00 Laboratory Results - last 24 hr 03/08/24 19:42: Urine Color Yellow, Urine Appearance Clear, Urine pH 6.0, Ur Specific [place] >= 1.030, Urine Protein Negative, Urine Glucose (UA) Negative, Urine Ketones 2+, Urine Blood Negative, Urine Nitrate Negative, Urine Bilirubin 1+ A, Urine Urobilinogen 0.2, Ur Leukocyte Esterase Trace, Urine RBC None, Urine WBC 5-10, Ur Squamous Epith Cells 5-10, Urine Bacteria 3+ 03/08/24 19:45: WBC 11.3 H, RBC 5.30, Hgb 14.9, Hct 43.9, MCV 82.8, MCH 28.1, MCHC 33.9, RDW 15.4, Plt Count 308, MPV 9.4, Neut % (Auto) 80.9 H, Lymph % (Auto) 14.3, [place] % (Auto) 3.4, Eos % (Auto) 1.0, Baso % (Auto) 0.4, Neut # (Auto) 9.1 H, Lymph # (Auto) 1.6, [place] # (Auto) 0.4, Eos # (Auto) 0.1, Baso # (Auto) 0.1, Sodium 138, Potassium 4.2, Chloride 105, Carbon Dioxide 23, Anion Gap 14.2, BUN 11, Creatinine 0.60, Estimated Creat Clear 243, Estimated GFR 111, Est GFR ( Amer) 135, Glucose 126 H, Calcium 9.4, Total Bilirubin 0.8, AST 52 H, ALT 44, Alkaline Phosphatase 72, Troponin I < 0.01, Total Protein 8.1, Albumin 4.8, Globulin 3.3 H, Albumin/Globulin Ratio 1.5, Lipase 88, Serum HCG, Qual Negative, HIV 1&2 Antibody Rapid Nonreactive 03/08/24 21:07: Lactate 1.0 03/08/24 22:34: Troponin I < 0.01 03/09/24 02:25: Troponin I < 0.01 03/09/24 05:44: WBC 9.6, RBC 5.00, Hgb 14.2, Hct 41.5, MCV 83.0, MCH 28.5, MCHC 34.4, RDW 15.4, Plt Count 286, MPV 9.4, Neut % (Auto) 90.0 H, Lymph % (Auto) 7.8 L, [place] % (Auto) 1.6 L, Eos % (Auto) 0.4, Baso % (Auto) 0.2, Neut # (Auto) 8.6 H , Lymph # (Auto) 0.8, [place] # (Auto) 0.2, Eos # (Auto) 0.0, Baso # (Auto) 0.0, Total Counted 100, Neutrophils % (Manual) 83 H, Band Neutrophils % 6.0, Lymphocytes % (Manual) 8 L, Monocytes % (Manual) 3, Platelet Estimate Normal, RBC Morphology Normal, Sodium 138, Potassium 4.4, Chloride 105, Carbon Dioxide 24, Anion Gap 13.4, BUN 11, Creatinine 0.60, Estimated Creat Clear 118, Estimated GFR 111, Est GFR ( Amer) 135, Glucose 159 H D, Lactate 2.1, Calcium 9.2, Magnesium 2.0, Total Bilirubin 0.4, AST 40 H, ALT 43, Alkaline Phosphatase 79, Total Protein 7.5, Albumin 4.4, Globulin 3.1, Albumin/Globulin Ratio 1.4, Monoscreen Negative 03/09/24 10:41: Lactate 1.3 I & O for Last 24 hours: Intake & Output 03/06/24 03/07/24 03/08/24 03/09/24 23:59 23:59 23:59 23:59 Intake Total 720 / 720 Output Total 400 / 400 Balance 320 / 320 Weight 122.47 kg 120.61 kg Constitutional Constitutional: no acute distress *Routine HEENT Exam Head: Present normocephalic Eye: Present EOMI and PERRL ENT: Present mucous membranes moist *Routine Neck Exam Neck: Present supple; Absent lymphadenopathy *Routine Respiratory Exam Respiratory: Present CTA bilaterally *Routine Cardiovascular Exam Cardiovascular: Present RRR *Routine Abdominal Exam Abdominal: Present soft and normoactive bowel sounds; Absent tenderness *Routine Extremities Exam Extremities: Absent cyanosis, clubbing or edema Routine Back/Spine/Pelvis Exam Comments: No vertebral stepoffs or overlying skin changes. *Routine Skin Exam Skin: Present warm; Absent rash *Routine Neurological Exam Neurological: Present alert and oriented X3 Assessment and Plan *Assessment and plan (1) Low back strain: Status: Acute Category: Medical Code(s): S39.012A - Strain of muscle, fascia and tendon of lower back, initial encounter (2) Deborah's thyroiditis: Status: Acute Category: Medical Code(s): E06.3 - Autoimmune thyroiditis Plan Kris Kelly is a 38 year old female with a medical history significant for hypothyroidism, recurrent shingles infections, GERD, anxiety/depression. 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 ? Stigmata seems most consistent with acute muscle strain. Right thoracic, low back pain with movement. Not completely reproducible with tenderness. No overlying skin changes or neurological deficits. ? Does have a history of shingles, including on the back. Low threshold to start acyclovir if presentation seems more consistent with that. Though, does not seems consistent with it at this time. - No urinary symptoms. Vitals stable. ? Start Toradol as primary analgesic, Dilaudid as needed. Flexiril as needed. - PO/OT consulted, but unable to participate at this time due to pain. #Hypothyroidism - Continue home levothyroxine. #GERD - Resume home PPI. #Anxiety/depression - Resume home SNRI, seroquel. FULL CODE Lovenox
[2024-03-09] MEDS: QUETIAPINE 25MG TABLET 25 MG PO (20:09)
[2024-03-10] MEDS: HYDROMORPHONE 2MG/ML SYRINGE 2 MG IV (01:55)
[2024-03-10 03:38] VITALS: BMI 41.8
[2024-03-10 03:39] VITALS: BP 123/69; PULSE 74; RESP 14; TEMP 37.1; O2SAT 94
--- NOTE | 2024-03-10 04:41 | PC.NURSE ---
Patient is alert and oriented x4. Patient was observed to have eyes closed, respirations even and unlabored on room air, and no apparent distress throughout the majority of the night. Her mother has remained at the bedside up to chair. Patient did awaken a couple times during the shift due to reports of severe back pain. Her pain has been treated with Dilautid per JUN, and she has been able to continue resting after receiving it. Patient reports that moderate movement makes her back pain quite worse. She has been getting up to the bedside commode with assistance for voids. She has also received her scheduled medications per JUN. Roberta lisa and crackers were given to the patient as a bedtime snack. Patient has not reported vomiting nor requested medication for nausea, but has kept an emesis bag close by to her this shift. A sputum sample has not been collected this shift. Upon auscultation, the patient's lung sounds were clear, S1/S2 heart sounds could be heard, and bowel sounds were active. Vital signs have been relatively stable this shift. At this time, the patient is resting supine in bed. She does not have any further complaints. No acute changes noted thus far. Call light within reach.
[2024-03-10] MEDS: KETOROLAC 30MG/ML VIAL 30 MG IV ×2 (05:50→11:56)
[2024-03-10] MEDS: LEVOTHYROXINE 100MCG (0.1MG) TAB 100 MCG PO (06:23)
[2024-03-10 07:16] LABS: HCV Ab Non Reactive (Non Reactive)
[2024-03-10 07:53] VITALS: BP 122/72; PULSE 65; RESP 16; TEMP 36.6; O2SAT 96
[2024-03-10] MEDS: hydrOXYzine pamoate 25MG CAPSULE 25 MG PO (08:24)
[2024-03-10] MEDS: CYCLOBENZAPRINE 10MG TABLET 10 MG PO (08:24)
[2024-03-10] MEDS: METOPROLOL SUCCINATE XL 100MG TABLET 100 MG PO (08:24)
[2024-03-10] MEDS: VENLAFAXINE XR 75MG CAPSULE 225 MG PO (08:25)
--- NOTE | 2024-03-10 11:33 | P.DS_ITS ---
General Admission date:: 03/09/24 HPI HPI HPI: Ms. Kelly is a 38-year-old obese female, has been brought to the emergency room because her back pain right side has become so bad over the last 2 days that she is unable to walk. She also has started vomiting due to the pain. She also describes a small amount of dizziness whenever she is having this trouble. She denies any recent injuries., She has a history of having shingles several times., But this pain is being noted as deeper and her shingles pain has never caused her vomiting and not being able to walk before. She has been being treated for an Achilles tendinitis of the right leg had been wearing a walking boot. This caused her to walk differently she had to wear a left knee brace due to straining it.. But she denies any injury fall or lifting that would have ca used this kind of pain. Patient was seen by the emergency room physician and given many different medications to see if the pain could be diminished. But this has been without success. I have come down and evaluated the patient examined her, and do agree and her present condition she really cannot ambulate by herself. And that it being helped she is in terrible pain. Did not find any secondary source for the injury and or illness for this. Basic labs and all workup by scans do not show any obvious causes.. So I do agree with the ER physician that we need to place her in with care and comfort do a physical therapy consult and evaluate her if further testing would be needed. So I will admit her to the floor as observation Hospital Course Hospital Course Hospital Course: Kris Kelly is a 38 year old female with a medical history significant for hypothyroidism, recurrent shingles infections, GERD, anxiety/depression. 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 ? Stigmata seems most consistent with acute muscle strain. Right thoracic, low back pain with movement. Not completely reproducible with tenderness. No overlying skin changes or neurological deficits. No radiculopathy, or red flag symptoms such as saddle anesthesia, urinary/bowel retention/incontinence. ? Does have a history of shingles, including on the back. Though, does not seems consistent with it at this time. - No urinary symptoms. Vitals stable. ? Clinically improved with Toradol and some opioid therapy. Still having some pain with movement. Flexiril as needed. - PO/OT consulted, did not recommend rehab needs though patient did not participate much. - Discharged with Mobic 15mg and Flexiril as needed. #Hypothyroidism - Continue home levothyroxine. #GERD - Resumed home PPI. #Anxiety/depression - Resumed home SNRI, seroquel. Exam Data for Last 24 hours Vital signs and Labs for Last 24 Hours: Temp Pulse Resp BP Pulse Ox O2 Del Method 98 F 65 16 122/72 96 Room Air 03/10/24 07:53 03/10/24 07:53 03/10/24 07:53 03/10/24 07:53 03/10/24 07:53 03/10/24 11:00 Laboratory Results - last 24 hr 03/08/24 19:45: Hepatitis C Antibody Non reactive 03/09/24 05:44: Total Counted 100, Neutrophils % (Manual) 83 H, Band Neutrophils % 6.0, Lymphocytes % (Manual) 8 L, Monocytes % (Manual) 3, Platelet Estimate Normal, RBC Morphology Normal I & O for Last 24 hours: Intake & Output 03/07/24 03/08/24 03/09/24 03/10/24 23:59 23:59 23:59 23:59 Intake Total 720 / 942 222 / 222 Output Total 900 / 900 Balance -180 / 42 222 / 222 Weight 122.47 kg 120.61 kg 120.854 kg Microbiology Reports for the Last 24 Hours: Microbiology 03/08/24 19:42 Urine,Clean Catch Urine Culture - Final No growth. Constitutional Constitutional: no acute distress *Routine HEENT Exam Head: Present normocephalic Eye: Present EOMI and PERRL ENT: Present mucous membranes moist *Routine Neck Exam Neck: Present supple; Absent lymphadenopathy *Routine Respiratory Exam Respiratory: Present CTA bilaterally *Routine Cardiovascular Exam Cardiovascular: Present RRR *Routine Abdominal Exam Abdominal: Present soft and normoactive bowel sounds; Absent tenderness *Routine Extremities Exam Extremities: Absent cyanosis, clubbing or edema Routine Back/Spine/Pelvis Exam Comments: No vertebral stepoffs or overlying skin changes. *Routine Skin Exam Skin: Present warm; Absent rash *Routine Neurological Exam Neurological: Present alert and oriented X3 Results Data Completed and Pending Labs on day of discharge: Labs from last 24 hours 12/03/24 12/02/24 05:44 19:45 Total Counted 100 Neutrophils % (Manual) 83 H Band Neutrophils % 6.0 Lymphocytes % (Manual) 8 L Monocytes % (Manual) 3 Platelet Estimate Normal RBC Morphology Normal Hepatitis C Antibody Non reactive DS: Diagnosis Discharge Diagnosis (1) Nausea & vomiting: Status: Acute Code(s): R11.2 - Nausea with vomiting, unspecified Qualifiers: Vomiting type: unspecified Qualified Code(s): R11.2 - Nausea with vomiting, unspecified (2) Midline low back pain with right-sided sciatica: Status: Acute Code(s): M54.41 - Lumbago with sciatica, right side Qualifiers: Chronicity: acute Qualified Code(s): M54.41 - Lumbago with sciatica, right side (3) Left upper quadrant abdominal pain: Status: Acute Code(s): R10.12 - Left upper quadrant pain (4) Peroneal tendonitis of right lower leg: Status: Acute Code(s): M76.71 - Peroneal tendinitis, right leg (5) Knee pain: Status: Acute Code(s): M25.569 - Pain in unspecified knee Qualifiers: Chronicity: unspecified Laterality: left Qualified Code(s): M25.562 - Pain in left knee (6) Deborah's thyroiditis: Status: Acute Code(s): E06.3 - Autoimmune thyroiditis Meds Home Medications and Allergies Home Medications ?Medication ?Instructions ?Recorded ?Confirmed ?Type metoprolol succinate 100 mg 100 mg PO DAILY #90 tabs 10/27/23 03/12/24 Rx tablet,extended release 24 hr furosemide 40 mg tablet 40 mg PO DAILY #90 tabs 12/09/23 03/12/24 Rx levothyroxine 100 mcg tablet 100 mcg PO DAILY 01/05/24 03/12/24 History hydroxyzine pamoate 25 mg capsule 25 mg PO Q6HP PRN Anxiety 01/07/24 03/12/24 History venlafaxine 150 mg 150 mg PO DAILY 01/07/24 03/12/24 History capsule,extended release 24 hr omeprazole 20 mg capsule,delayed 20 mg PO DAILY #30 caps 01/26/24 03/12/24 Rx release cetirizine 10 mg tablet 10 mg PO DAILY 03/09/24 03/12/24 History meloxicam 15 mg tablet 15 mg PO DAILY 03/09/24 03/12/24 History montelukast 10 mg tablet 10 mg PO PM 03/09/24 03/12/24 History quetiapine 50 mg tablet 50 mg PO HS 03/09/24 03/12/24 History venlafaxine 75 mg capsule,extended 75 mg PO DAILY 03/09/24 03/12/24 History release 24 hr cyclobenzaprine 10 mg tablet 10 mg PO TID PRN back pain 5 days 03/12/24 03/12/24 Rx #60 tabs oxycodone-acetaminophen 5 mg-325 1 tab PO Q4-6H PRN pain #40 tabs 03/12/24 03/12/24 Rx mg tablet (Percocet) New Prescriptions to Start Prescriptions: Allergies Allergy/AdvReac Type Severity Reaction Status Date / Time mushroom Allergy Unknown Unknown Verified 03/12/24 13:39 allergy reaction Discharge Plan Disposition Patient Disposition: Home, Self-Care Condition: Fair Follow up Plan Follow up with: Cezar Mendez MD [Primary Care Provider] - 03/17/24 2:00 pm Prescriptions/Medication Reconciliation: Continued venlafaxine 150 mg capsule,extended release 24hr 150 mg PO DAILY Patient Comments: TAKE 1 CAPSULE BY MOUTH ONCE DAILY hydroxyzine pamoate 25 mg capsule 25 mg PO Q6HP PRN (Reason: Anxiety) Patient Comments: TAKE 1 CAPSULE BY MOUTH EVERY 6 TO 8 HOURS NEEDED FOR ANXIETY metoprolol succinate 100 mg tablet extended release 24 hr 100 mg PO DAILY Qty: 90 3RF levothyroxine 100 mcg tablet 100 mcg PO DAILY Patient Comments: TAKE 1 TABLET BY MOUTH ONCE DAILY furosemide 40 mg tablet 40 mg PO DAILY Qty: 90 0RF omeprazole 20 mg capsule,delayed release(DR/EC) 20 mg PO DAILY Qty: 30 2RF cetirizine 10 mg tablet 10 mg PO DAILY Patient Comments: TAKE 1 TABLET BY MOUTH ONCE DAILY montelukast 10 mg tablet 10 mg PO PM Patient Comments: TAKE 1 TABLET BY MOUTH ONCE DAILY venlafaxine 75 mg capsule,extended release 24hr 75 mg PO DAILY Patient Comments: TAKE 1 CAPSULE BY MOUTH ONCE DAILY TAKE WITH THE 150MG CAPSULE quetiapine 50 mg tablet 50 mg PO HS Patient Comments: TAKE 1 TABLET BY MOUTH AT BEDTIME meloxicam 15 mg tablet 15 mg PO DAILY Patient Comments: TAKE 1 TABLET BY MOUTH ONCE DAILY No Action oxycodone-acetaminophen [Percocet] 5-325 mg tablet 1 tab PO Q4-6H PRN (Reason: pain) Qty: 40 0RF cyclobenzaprine 10 mg tablet 10 mg PO TID PRN (Reason: back pain) 5 Days Qty: 60 1RF Problem Reconciliation Problems Reviewed?: Yes Patient Discharge Instructions Stand Alone Forms: [facility] Work Release Patient Instructions: DI for Low Back Pain, DI for Vomiting -- Adult Print Language: [place] Providers Primary Care Provider: Cezar Mendez Admit Provider: Jatin Odom Attending Provider: Jatin Odom
[2024-03-10] MEDS: ACETAMINOPHEN 325MG TAB 650 MG PO (11:56)
[2024-03-10 12:07] LABS: Albumin Level 3.7 g/dl (3.5-5.0); Chloride 103 mmol/L (98-107); Potassium 3.6 mmoL/L (3.5-5.1); Sodium 135 mmol/L (136-145)
[2024-03-10 12:10] LABS: Alanine Aminotransferase 34 U/L (12-78); Albumin/Globulin Ratio 1.4 (1.1-1.8); Alkaline Phosphatase 63 U/L (38-126); Anion Gap 6.6 mEq/L (5-15); Aspartate Amino Transferase 36 U/L (14-36); Bilirubin,Total 0.3 mg/dl (0.2-1.3); Blood Urea Nitrogen 20 mg/dl (7-17); Calcium 8.5 mg/dl (8.4-10.2); Carbon Dioxide 29 mmol/L (22.0-30.0); Creatinine Clearance Estimated 88 mL/min (50-200); Estimated Glomerular Filt Rate 80 ml/min (>60); GFR (African American) 97 ML/MIN (>60); Globulin 2.6 g/dL (1.3-3.2); Glucose 82 mg/dl (74-100); Total Protein,Serum 6.3 g/dl (6.3-8.2)
--- NOTE | 2024-03-11 10:13 | SW/DCPLANNER ---
spoke with patient on the phone. Patient stated that she still hurts and that she was able to get her medicine filled and shes aware of her upcoming appointments. Patient stated she has no concerns or questions at this time. Colleen Gillespie
== END 2024-03-10 12:41 | disposition home or self-care (01) ==
LOC: ER 03-09 00:04 → 2ND 03-09 00:57
PROVIDERS: Nurse Practitioner Family; Student in an Organized Health Care Education/Training Program; Admitting Provider Internal Medicine Adolescent Medicine; Emergency Provider Emergency Medicine; PCP Family Medicine; Visit Provider Internal Medicine Adolescent Medicine
DX: S39.012A Strain of muscle, fascia and tendon of lower back, initial encounter (principal); M54.41 Lumbago with sciatica, right side; E06.3 Autoimmune thyroiditis; Z79.899 Other long term (current) drug therapy; M76.71 Peroneal tendinitis, right leg; M25.562 Pain in left knee
CPT/HCPCS: 36415; 71275; 72128; 72131; 74174; 80053; 81001; 83605; 83690; 83735; 84484; 84703; 85007; 85025; 85027; 86318; 86803; 87086; 87389; 93005; 97162; 97166; 97530; 99285; G0378; J1100; J1171; J1885; J2270; J2405; J2550; Q9967

== ENCOUNTER 2024-03-18 15:30 | Outpatient (CLI) | payer BC, SELFPAY ==
--- NOTE | 2024-03-18 15:36 | MR_ITS ---
FINAL REPORT CLINICAL HISTORY: RIGHT SIDED mid back pain FINDINGS: Multiplanar MR imaging of the thoracic spine was performed without contrast. On the sagittal T2-weighted images, no significant disc degeneration is identified. There is no evidence of fracture. The vertebral alignment is normal. No bony mass is identified. The thoracic spinal cord has an unremarkable appearance without evidence of mass, edema or syrinx. There is no evidence of canal stenosis or cord compression. On the axial images, a small left paracentral T8-9 disc protrusion mildly indents the thecal sac. No other disc protrusion is identified. There is no evidence of significant canal stenosis. No paraspinous soft tissue abnormality is seen. IMPRESSION: Small left paracentral T8-9 disc protrusion which mildly indents the thecal sac. No significant canal stenosis or evidence of cord compression. Authenticated and ERN
--- NOTE | 2024-03-18 15:36 | MR_ITS ---
FINAL REPORT CLINICAL HISTORY: RIGHT SIDED Low back pain FINDINGS: Multiplanar MR imaging of the lumbar spine was performed without contrast. On the sagittal T2-weighted images, mild disc degeneration is seen at L3-4. The vertebral alignment is normal. No bony mass is identified. There is no evidence of fracture. The conus has an unremarkable appearance. T12-L1: Unremarkable. L1-2: Unremarkable. L2-3: Unremarkable. L3-4: An annular bulge is present. A small left foraminal disc protrusion is seen with mild left neural foraminal narrowing. L4-5: A mild disc bulge is present. No significant neural foraminal narrowing is seen. L5-S1: Unremarkable. IMPRESSION: Small left foraminal L3-4 disc protrusion with mild left neural foraminal narrowing. Mild L4-5 disc bulge. Authenticated and ERN
== END 2024-03-18 23:59 | disposition home or self-care (01) ==
LOC: RAD 15:31
PROVIDERS: PCP Family Medicine; Visit Provider Family Medicine
DX: M54.50 Low back pain, unspecified (principal)
CPT/HCPCS: 72146; 72148

== ENCOUNTER 2024-04-05 14:00 | Outpatient (RCR) | payer BC, SELFPAY ==
--- NOTE | 2024-03-23 11:03 | HMH.PTOPEV ---
PT Outpatient Evaluation Rehab PT Outpatient Evaluation Start: 03/23/24 08:01 Freq: Status: Active Protocol: Document 03/23/24 08:01 BEBO (Rec: 03/23/24 11:02 PDESEROUX [id number]) E-signed By Ronnell Rodriguez, PT Outpatient Therapy Subjective History Subjective History Pt. is a 38 year old Female who presents to [facility] Outpatient Physical Therapy Services in [place] for the initial evaluation this date(03/23/24) w/ c/o acute and constant R- sided thoracolumbar P!, stiffness, and muscle spasms of traumatic onset since the weekend after Thanksgiving. Pt. began to c/o LBP!(07/15) initially w/ prolonged standing and cooking for Thanksgiving dinner. However, pt. vocalizes GINA was the weekend afterwards when pt. sat down in her car, then scooted over to the middle of the seat when symptom exacerbation initiated. Pt. c/ o of 01/14 LBP! after the car transfer, and ended up going to the E.R. Testing and diagnostic imaging negative for a pulmonary embolism, however, indicated L-sided kidney stone and bulging discs in the thoracic and lumbar spine per pt. report. Pt. reports having maybe symptom relief w/ prescribed muscle relaxers and MHP. Pt. reports being instructed to be on bedrest and off occupational duties at this time per MD. Pt . RTMD Friday(03/26/24). Pt. denies bowel/bladder dysfunction, denies saddle paresthesia. Pt. reports she's been donning CAM bt. on the RLE ankle/ft. secondary to achilles tendinitis for a few months prior to GINA, pt.'s expresses concern since donning CAM bt. for prolonged period of time if this had led to c/o LBP!. Current medications include Flexeril, Synthroid, Singulair, Omeprazole, Hydroxyzine, Toprol, Seroquel, and Effexor. PMH includes RLE ankle/ft. achilles tendinitis, L-sided wedge resection, and Deborah 's Disease. New diagnosis of cancer in past 12 No months? Chief Complaint Pain,Spasms,Stiff,Gives out/ Unstable Symptom Type Ache,Sharp,Dull,Stabbing, Shooting Symptoms Relieved By Rest/Positioning,Heat, Prescription Meds Symptoms Aggravated By Standing,Bending/Stooping, Physical Activity,Twisting, Walking,Lifting Prior Functional Limitations None Current Functional Limitations Reaching,Lifting,Housework, Dressing,Desk Work/Reading, Sleeping,Standing,Squatting, Recreation Activity,Walking, Bending/Stooping Symptom Description Constant and Continuous, Activity Dependent Level of pain today (0-10) 4 Pain scale - at its best (0-10) 3 Pain scale - at its worst (0-10) 10 Lumbopelvic Eval Posture Thoracic Spine Posture Standing Position Neutral Lumbar Spine Posture Standing Position Neutral Assistive device Assistive Devices None / NA Gait Observation General Gait Pattern Observation No Deviations/Normal Palapation tenderness right thoracic spinal tenderness Yes: T10-T12 lumbar spinal tenderness Yes: L1-L2 paraspinal tenderness Yes: R-sided T-spine/L-spine adjacent to spinal TTP buttock tenderness No tenderness over symphysis pubis No Lumbar/Sacral Palpation Findings Tenderness,Spasm,Trigger Point ,Muscle Guarding Lumbar/Sacral Palpation Overall Comment grade 4 +TTP to assessment above Accessory Movement T-spine Vertebrae Accessory Movements Central P/A [place],Right P/A that Elicit Symptoms [place] T10 right T11 right T12 right L-spine Vertebrae Accessory Movements Central P/A [place],Right P/A that Elicit Symptoms [place] L2 right Range of Motion Lumbar Spine Active Flexion Range of 13 Motion (degrees) Lumbar Spine Active Extension Range of 7 Motion (degrees) Left Lumbar Spine Lateral Flexion Active 9 Range of Motion (degrees) Right Lumbar Spine Lateral Flexion 3 Active Range of Motion (degrees) Lumbar Spine ROM Limitations Soft Tissue Tightness,Muscle Tone,Pain Manual Muscle Test Bilateral Knee Extension Strength Grade 5 Normal Knee Flexion Strength Grade 5 Normal Hip Flexion Strength Grade 4- Good- Hip Abduction Strength Grade 4- Good- Hip Adduction Strength Grade 4- Good- Hip External Rotation Strength Grade 4 Good Hip Internal Rotation Strength Grade 4 Good Hip Extension Strength Grade 5 Normal Gluteus Luis Strength Grade 5 Normal Extensor Hallucis Longus Strength Grade 5 Normal Ankle Dorsiflexion Strength Grade 5 Normal Gastronemius/Soleus Strength Grade 5 Normal DTR Rt Patellar 2+ Lt Patellar 2+ Rt Gastroc/Soleus 2+ Lt Gastroc/Soleus 2+ Altered Sensation Bilateral Comment vocalized light touch sensation WNLs in BLEs Special Tests Lumbar Spine Screen Positive Rib Inspiration/Expiration Breathing Positive Test Forward Bending Test- Standing Positive Right Hip Piriformis Test Negative Right Sciatic Nerve Tension Test Negative Right Crossed Straight Leg Raise Test Positive Right Lumbar Long [place] Distraction Test/Manual Negative Traction Outpatient Therapy Assessment Impairments Problems/Impairmments Palpation Tenderness,Impaired Range of Motion,Impaired Strength,Impaired Endurance, Impaired Transfers,Impaired Walking,Impaired Standing, Impaired Lifting,Impaired Dressing,Impaired Household Care,Impaired Bending,Impaired Recreational Activities, Impaired Work Activities, Subjective C/O Pain,Impaired Self Care/Self Management Prognosis Rehab Potential Good Comment w/ HEP compliancy Clinical Impression Consistent with Diagnosis Yes Consistent with Lumbago w/ Sciatica, R Short Term Goals Number of Weeks 2 Decreased Palpation Tenderness Yes: grade 1-2 +TTP to TTP assessment above Decrease Subjective C/O Pain Yes: worse:08/14 Patient to be Ind w/ HEP Yes Detention Goals Number of Weeks 4-6 Decreased Palpation Tenderness Yes: grade 1 +TTP to TTP assessment above Increase Range of Motion Yes: lumbar spine AROM WFL grossly w/o difficulty Increase Strength Yes: BLE hip MMT scores 4+ to 5/5 grossly w/o difficulty Improve Transfers Yes: supine<>sit and sit<> stand w/o difficulty Increase Ability to Walk Yes Increase Ability to Stand Yes Restore Ability to Lift Objects to Waist Yes Level Improve Ability to Dress Self Yes Improve Ability For Household Care Yes Improve Ability to Bend Yes Improve Oswestry Score Yes Decrease Subjective C/O Pain Yes: worse:-06/14 Patient to be Ind w/ Advanced HEP Yes Outpatient Therapy Plan of Care Treatment Plan May Include Therapeutic Exercise Including Home Yes Exercise Program Manual Therapy Techniques Yes Neuromuscular Re-education Yes Therapeutic Activities to Return to Yes Previous Functional/Work Level ADL/Self Care Education Yes Mechanical Traction Yes Dry Needling Yes Thermal Modalities Yes Electrical Stimulation Yes Ultrasound/Phonophoresis Yes Iontophoresis Yes Vasopneumatic Compression Pump Yes Massage Yes Eval/Re-Eval Yes Aquatic Therapy Yes Frequency Times per week 2 Duration Number of Weeks 4-6 Addendums This patient is a candidate for social No or vocational rehab? Patient/Guardian verbally acknowledges Yes understanding of treatment program and consents to further treatment? Patient/Guardian verbally acknowledges Yes understanding of diagnosis, prognosis and goals for treatment? Eval Complexity PT Charges 48095 - Moderate Complexity Shoulder/Elbow Eval Shoulder Objective Measurements Elbow Objective Measurements PHYSICIAN CERTIFICATION: I certify the specified therapy services for Kris Kelly are required, authorized, and reviewed every 30 days.
== END 2024-04-05 23:59 | disposition home or self-care (01) ==
LOC: PT 14:00
PROVIDERS: Visit Provider Family Medicine
DX: M54.41 Lumbago with sciatica, right side (principal)
CPT/HCPCS: 20560; 97014; 97110; 97140; 97163; G0283

== ENCOUNTER 2024-04-09 13:20 | Outpatient (CLI) | payer BC, SELFPAY ==
--- NOTE | 2024-04-09 13:26 | MR_ITS ---
FINAL REPORT CLINICAL HISTORY: Foot Pain 25 ml prohance FINDINGS: Multiplanar MR imaging of the right foot was performed with and without contrast. Bone marrow signal intensity is preserved. There is no bone marrow edema or fracture. The Lisfranc joint and ligament are intact. The Achilles tendon is intact. There is mild distal Achilles tendinosis. The medial and lateral tendons of the ankle are intact. No joint effusion is identified. The plantar fascia is intact. IMPRESSION: Mild to distal Achilles tendinosis. No acute abnormality identified. Reviewed, Interpreted and Dictated by Sandy Andres MD Transcribed by Apple Bello Authenticated and [facility]
[2024-04-09] MEDS: GADOTERIDOL INJ 20ML SYRINGE 20 ML IV (14:33)
[2024-04-09] MEDS: SODIUM CHLORIDE 0.9% 10ML SYR (RAD ONLY) 10 ML IV (14:33)
[2024-04-09] MEDS: GADOTERIDOL INJ 10ML SYRINGE 5 ML IV (14:33)
== END 2024-04-09 23:59 | disposition home or self-care (01) ==
LOC: RAD 13:22
PROVIDERS: PCP Family Medicine; Visit Provider Nurse Practitioner
DX: M79.671 Pain in right foot (principal)
CPT/HCPCS: 73720; A9576

== ENCOUNTER 2024-04-19 14:55 | Outpatient (RCR) | payer BC, SELFPAY | END 2024-04-19 23:59 | disposition home or self-care (01) | LOC: PT 14:55 | PROVIDERS: Visit Provider Family Medicine | DX: M54.41 Lumbago with sciatica, right side (principal) | CPT/HCPCS: 97110 ==

== ENCOUNTER 2024-06-04 07:00 | Outpatient (RCR) | payer BC, SELFPAY | END 2024-06-04 23:59 | disposition home or self-care (01) | LOC: PT 07:00 | PROVIDERS: Visit Provider Orthopaedic Surgery | DX: M54.6 Pain in thoracic spine (principal); M48.10 Ankylosing hyperostosis [Forestier], site unspecified | CPT/HCPCS: 20560; 97014; 97110; 97112; 97140; 97163; G0283 ==

== ENCOUNTER 2024-06-29 14:00 | Outpatient (RCR) | payer BC, SELFPAY | END 2024-06-29 23:59 | disposition home or self-care (01) | LOC: PT 14:00 | PROVIDERS: Visit Provider Orthopaedic Surgery | DX: M54.6 Pain in thoracic spine (principal) | CPT/HCPCS: 97014; 97110; 97112; 97140; 97164; 97530; G0283 ==

== ENCOUNTER 2024-07-21 08:00 | Outpatient (RCR) | payer BC, SELFPAY | END 2024-07-27 11:30 | disposition home or self-care (01) | LOC: PT 08:00 | PROVIDERS: Visit Provider Orthopaedic Surgery | DX: M54.6 Pain in thoracic spine (principal) | CPT/HCPCS: 97014; 97110; 97530; 97535; G0283 ==

== ENCOUNTER 2024-07-21 15:10 | Outpatient (CLI) | payer BC, SELFPAY ==
[2024-07-21 18:00] LABS: Anti-Centromere B Antibodies ND; Anti-DNA (DS) Ab Qn ND; Anti-Jo-1 ND; Antichromatin Antibodies ND; Antiscleroderma-70 Antibodies ND; RNP Antibodies ND; Sjogren's Anti-SS-A ND; Sjogren's Anti-SS-B ND
[2024-07-21 18:04] LABS: Hematocrit 41.4 % (37.0-47.0); Hemoglobin 13.6 g/dL (12.2-16.2); Lymphocytes # 1.7 K/mm3 (0.7-4.5); Lymphocytes % 23.2 % (10-50); Mean Corpuscular HGB Conc 32.9 g/dL (31.8-35.4); Mean Corpuscular Hemoglobin 27.8 pg (27.0-31.2); Mean Corpuscular Volume 84.7 fl (81-99); Mean Platelet Volume 12.2 fl (7.4-10.4); Monocytes # 0.4 K/mm3 (0.1-1.0); Monocytes % 4.9 % (1.7-9.3); Neutrophils # 5.3 K/mm3 (1.8-7.8); Neutrophils % 71.4 % (37.0-80.0); Nucleated Red Blood Cells # 0 10^3/uL; Nucleated Red Blood Cells % 0 %; Platelet Count 244 K/mm3 (142-424); Red Blood Count 4.89 M/mm3 (4.20-5.40); Red Cell Distribution Width 14.4 % (11.5-17.5); Red Cell Distribution Width-SD 44.2 fL; White Blood Count 7.4 K/mm3 (4.8-10.8)
[2024-07-21 18:31] LABS: Erythrocyte Sedimentation Rate 16 mm/hr (0-20)
[2024-07-21 19:29] LABS: C-Reactive Protein 13.3 mg/L (0-4)
--- OUTSIDE RECORDS SUMMARY | 2024-07-22 09:43 | XMS_ITS ---
Author Organization [facility] , [facility] Address [address] [place] [address] Phone Care Team Providers Care Production Hardener Name Role Phone Vitor DUENAS, Danny Unavailable [phone] Problems Includes: Active, inactive, and resolved Problems All Visits Onset Date Resolved Date Provider Condition S tatus Lower Back Pain 05/13/2024 Krish Recio MD Act deb Last Documented On 5 10:51AM ; [facility] Plan of Treatment Referrals To Diagnosis Consult for Pain Management Over weight Note: refer pt to Dr. Holger ann for Pain Management per MARGIE / BCBS // lk Last Documented On 5 3:20PM ; [facility], [facility] Instructions to patient Lose weight Last Documented On 5 10:52AM ; [facility] Assessments Includes: Assessments for all patient encounters Findings Encounter Date Overweight Physician Specified with Krish Recio MD 05/13/2024 Last Documented On 5 12:09PM ; [facility] Instructions Includes: Instructions for all patient encounters Instructions to patient Lose weight Last Documented On 5 10:52AM ; [facility] Medical Equipment - Implanted Devices Includes: Current and historical Devices No Medical Equipment Recorded Medications Includes: Current and historical Medications Current Medications (continue as prescribed) Effexor XR 150 MG Oral Capsule Extended Release 24 Sage r 05/13/2024 Provider: Diagnosis: Last Documented On 5 11:18AM By Florian Mon ; [facility] Toprol XL 100 MG Oral Tablet Extended Release 24 Hour 05/13/2024 Provider: Diagnosis: Last Documented On 5 11:18AM By Florian Mon ; [facility] Synthroid 100 MCG Oral Tablet 05/13/2024 Provider: Diagnosis: Last Documented On 5 11:18AM By lForian Mon ; [facility] Singulair 10 MG Oral Tablet 05/13/2024 Provider: Diagnosis: Last Documented On 5 11:19AM By Florian Mon ; [facility] Omeprazole 20 MG Oral Ta blet Delayed Release Disintegrating 05/13/2024 Provider: Diagnosis: Last Documented On 5 11:19AM By Florian Mon ; [facility] Diclofenac Sodium 75 MG Oral Tablet Delayed Release 05/13/2024 - 08/11/2024 Provider: Krish Recio MD Diagnosis: 1 PO twice a day Last Documented On 11:50AM By Dawson Monahan ; [facility] Metoprolol Succinate ER 100 MG Oral Tablet Extended Release 24 Hour 04/30/2024 Provider: Diagnosis: Last Documented On 5 10:52AM By Dawson Monahan ; [facility] Montelukast Sodium 10 MG Oral Tablet 04/30/2024 Prov ider: Diagnosis: Last Documented On 5 10:52AM By Dawson Monahan ; [facility] Levothyroxine Sodium 100 MCG Oral Tablet 04/24/2024 Provider: Diagnosis: Last Documented On 5 10:52AM By Dawson Monahan ; [facility] Venlafaxine HCl ER 150 MG Or al Capsule Extended Release 24 Hour 04/24/2024 Provider: Diagnosis: Last Documented On 5 10:52AM By Dawson Monahan ; [facility] Past Medications on file Methocarbamol 750 MG Oral Tablet 05/13/2024 - 07/13/19 Provider: Krish Recio MD Diagnosis: Take 1 tablet every 8 hrs prn pain Last Documented On 5 11:50AM By Dawson Monahan ; [facility] Medications Administered Includes: Administered Medications in patient's chart No Administered Medications Recorded Vital Signs Includes: Vital Signs from 07/23/2023 through 07/22/2024 Vital Name 05/13/2024 11:50A 05/13/2024 11:16A 05/13 11:14A Height (in) 67 67 67 Weight (lb) 260 260 260 Body Mass Index 40.7 40.7 40.7 Body Surface Area 2.3 2.3 2.3 Pain Level 8 8 8 Last Documented: On 05/13/2024 11:50A M ; [facility] On 05/13/2024 11:16AM ; [facility] On 05/13/2024 11:14AM ; [facility] Results Includes: Results from 07/23/2023 through 07/22/2024 No Results Recorded For Specified Dates History of Present Illness History of Present Illness not supported for this document type No History of Present Illness Recorded Social History No Social History Recorded - Smoking Status Unknown Medical History Includes: Medical History in patient's chart No Medical History Recorded Family History Includes: Family History in patient's chart No Family History Recorded Review of Systems Review of Systems not supported for this document type No Review of Systems Recorded Mental Status Description Anxiety Functional Status No Functional Status Recorded Physical Exam Physical Exam not supported for this document type No Physical Exam Recorded Allergies Includes: Active, inactive, and resolved Allergies No Known Allergies Encounters Includes: Encounters from 07/23/2023 through 07/22/2024 Encounter Provider Location Date Check-In Time Check-Out Time Diagnosis Physician Specified Krish Recio MD [facility] 05/13/19 25 10:43AM 11:44AM Overweight Insurance Includes: Active Insurance Policies Plan Name Member ID Group # Subscriber Relationship Effect deb Dates - [facility] [id number] Kris Amador Clinical Notes Includes: Signed Clinical Notes starting from 03/21/2022 No Clinical Notes Recorded
--- OUTSIDE RECORDS SUMMARY | 2024-07-22 09:43 | XMS_ITS ---
Care Plan - [facility], [facility] Created on: July 22, 2024 Kris Kelly : 1985 Sex: Female Author Organization [facility] Address [address] [place] [phone] Phone Care Team Providers Care Admission Nurse Name Role Phone Vitor DUENAS, Danny Unavailable [phone]
--- OUTSIDE RECORDS SUMMARY | 2024-07-22 09:44 | XMS_ITS | Clinical Summary ---
Author Organization [facility] , [facility] Address [address] [place] [address] Phone Care Team Providers Care First Aid Instructor Name Role Phone Vitor DUENAS, Danny Unavailable [phone] Reason for Visit and Chief Complaint The Chief Complaint is: Mid back pain Problems Includes: Problems addressed during this encounter and other active Problems Current Visit Onset Date Resolved Date Provider Carmen ann Status Lower Back Pain 05/13/2024 Krish Recio MD Act deb Last Documented On 5 10:51AM ; [facility], [facility] Plan of Treatment Patient was seen by myself and Dr. Hemal Vizcarra PA-C. Patient will follow up as needed there is no role for surgery for her recommend a different anti- inflammatories muscle relaxer physical therapy continue did not referral to pain management for other potential like trigger point type injections - Last Documented On 05/13/2024 12:09PM ; [facility], [facility] Pending Tests Order Diagnosis Results Due Ordering P rovider Therapy - Physical Therapy Thoracic Low back pain, unspecified 05/13/24 Krish Recio MD Last Documented On 5 11:42AM ; [facility], [facility] Referrals To Diagnosis Consult for Pain Management Over weight Note: refer pt to Dr. Holger ann for Pain Management per MARGIE / ELVA // lk Last Documented On 5 3:20PM ; [facility], [facility] Instructions to patient Lose weight Last Documented On 5 10:52AM ; [facility], [facility] Assessments Includes: Assessments from this encounter Findings - Overweight - Last Documented On 05/13/2024 12:09PM ; [facility], [facility] Thoracic back pain/DISH - Last Documented On 05/13/2024 12:09PM ; [facility], [facility] Instructions Includes: Instructions from this encounter Instructions to patient Lose weight Last Documented On 5 10:52AM ; [facility], [facility] Medical Equipment - Implanted Devices Includes: Current Devices No Medical Equipment Recorded Medications Includes: Medications discussed during this encounter and other current Medications New / Renewed during this visit Krish Recio MD on 05/13/2024 Methocarbamol 750 MG Oral Tablet Provider: Krish Recio MD 30 day supply: 60 tablet, 1 refills Diagnosis: Take 1 tablet every 8 hrs prn pain Pharmacy: [facility] [address], [id number] - Last Documented On 5 11:50AM By Dawson Monahan ; [facility], [facility] Diclofenac Sodium 75 MG Oral Tablet Delayed Release Provider: Krish Recio MD 30 day supply: 60 tablet, 2 refills Diagnosis: 1 PO twice a day Pharmacy: [facility] [address], [address] - Last Documented On 5 11:50AM By Dawson Monahan ; [facility], [facility] Current Medications (continue as prescribed) Effexor XR 150 MG Oral Capsule Extended Release 24 Sage r 05/13/2024 Provider: Diagnosis: Last Documented On 5 11:18AM By Florian Mon ; [facility], [facility] Toprol XL 100 MG Oral Tablet Extended Release 24 Hour 05/13/2024 Provider: Diagnosis: Last Documented On 5 11:18AM By Florian Mon ; [facility], [facility] Synthroid 100 MCG Oral Tablet 05/13/2024 Provider: Diagnosis: Last Documented On 5 11:18AM By Florian Mon ; [facility], [facility] Singulair 10 MG Oral Tablet 05/13/2024 Provider: Diagnosis: Last Documented On 5 11:19AM By Florian Mon ; [facility], [facility] Omeprazole 20 MG Oral Ta blet Delayed Release Disintegrating 05/13/2024 Provider: Diagnosis: Last Documented On 5 11:19AM By Florian Mon ; [facility] Metoprolol Succinate ER 100 MG Oral Tablet Extended Release 24 Hour 04/30/2024 Provider: Diagnosis: Last Documented On 10:52AM By Dawson Monahan ; [facility] Montelukast Sodium 10 MG Oral Tablet 04/30/2024 Prov ider: Diagnosis: Last Documented On 10:52AM By Dawson Monahan ; [facility] Levothyroxine Sodium 100 MCG Oral Tablet 04/24/2024 Provider: Diagnosis: Last Documented On 10:52AM By Dawson Monahan ; [facility] Venlafaxine HCl ER 150 MG Or al Capsule Extended Release 24 Hour 04/24/2024 Provider: Diagnosis: Last Documented On 10:52AM By Dawson Monahan ; [facility] Medications Administered Includes: Administered Medications from this encounter No Administered Medications Recorded Vital Signs Includes: Vital Signs from this encounter Vital Name 05/13/2024 11:50A 05/13/2024 11:16A 05/13 11:14A Height (in) 67 67 67 Weight (lb) 260 260 260 Body Mass Index 40.7 40.7 40.7 Body Surface Area 2.3 2.3 2.3 Pain Level 8 8 8 Last Documented: On 05/13/2024 11:50A M ; [facility] On 05/13/2024 11:16AM ; [facility] On 05/13/2024 11:14AM ; [facility] Results Includes: Results discussed during this encounter No Results Recorded For Specified Dates History of Present Illness Includes: History of Present Illness from this encounter HPI Kris Kelly is a 38 year old female. - Symptoms pain better: rest sometimes pain worse: movement. - Allergy list reviewed - Problem list reviewed - Medication list reviewed - Sharp pain Symptoms - Stabbing - Pain is constant (100% of the time) - Pain is throbbing - Pain is dull, aching - Patient pain level from 1-10: 6 - Yes, previous treatment. PCP - History of Physical Therapy [facility] Zev - - Review of medications documented Medications used for this condition:Flexaryl, percocet Patient is here today complaints of mid back pain that started sometime around Thanksgiving just getting out of a vehicle. She says some pain mainly in her mid back she has tried Flexeril which has been making her feel sleepy Percocet ibuprofen and Tylenol that she takes Percocet as needed. She has been in physical therapy for about a month they have tried some dry needling with this. She has some associated pain radiates to the right buttock. Denies any previous back surgery denies any bowel or bladder issues with this. Social History Description Last Updated Caffeine use 05/13/2024 Last Documented On 5 10:52AM ; [facility], [facility] Exercising regularly 05/13/2024 Last Documented On 5 10:52AM ; [facility] No recent change in diet 05/13/2024 Last Documented On 5 10:52AM ; [facility], [facility] Not a current smoker. 05/13/2024 Last Documented On 5 10:52AM ; [facility] Not using alcohol 05/13/2024 Last Documented On 5 10:52AM ; [facility] Not using drugs 05/13/2024 Last Documented On 5 10:52AM ; [facility] Smoking Status Unknown Procedures and Surgical History Includes: Procedures from this encounter Procedures Code Diagnosis Performing Provider Service L ocation Service Date CT scan 03/2025 [facility] [id number] Last Documented On 5 11:21AM ; [facility] an MRI was performed 04/2024 [facility] [id number] Last Documented On 5 11:21AM ; [facility], [facility] Surgical History Last Updated Past Surgical History: Thoracotomy Lt alejandra ng 05/13/2024 Last Documented On 5 11:32AM ; [facility], [facility] Medical History Includes: Medical History addressed during this encounter Description Last Updated History of Anemia 05/13/2024 Last Documented On 5 11:32AM ; [facility], [facility] History of arthritis 05/13/2024 Last Documented On 5 11:32AM ; [facility] History of asthma 05/13/2024 Last Documented On 5 11:32AM ; [facility] History of depression 05/13/2024 Last Documented On 5 11:32AM ; [facility] History of Fractures 05/13/2024 Last Documented On 5 11:32AM ; [facility] History of Heartburn / Acid Reflux 05/13 Last Documented On 5 11:32AM ; [facility] History of Thyroid Disease 05/13/2024 Last Documented On 5 11:32AM ; [facility], [facility] Past medical and surgical history non-co ntributory 05/13/2024 Last Documented On 5 10:52AM ; [facility] Family History Includes: Family History addressed during this encounter Description Last Updated Diabetes mellitus 05/13/2024 Last Documented On 5 11:33AM ; [facility] Family history of heart disease 05/13/19 Last Documented On 5 11:33AM ; [facility] Family history of systemic hypertension 05/13/2024 Last Documented On 5 11:33AM ; [facility] Stroke / Seizures 05/13/2024 Last Documented On 5 11:33AM ; [facility] No significant family history 05/13/2024 Last Documented On 5 10:52AM ; [facility] Review of Systems Includes: Review of Systems from this encounter Systemic: Not feeling tired, no recent weight loss, and no recent weight gain. Head: No headache and no sinus pain. Eyes: No vision problems and no Cataracts. Glasses/Contacts. No Glaucoma. Otolaryngeal: No hearing loss. Tinnitus. Cardiovascular: No chest pain or discomfort. Palpitations. No Hypertension and no High Cholesterol. Pulmonary: Daytime asthma symptoms. No chronic cough. No wheezing. Gastrointestinal: No heartburn and no abdominal pain. No Indigestion, no Peptic Ulcer, no GI Stomach Bleed, and no Ulcers. Acid Reflux. Endocrine: No hot flashes, no muscle weakness, and no Diabetes. Hypothyroid. No Hyperthyroid. Hematologic: No easy bleeding. A tendency for easy bruising and Anemia. Musculoskeletal: Arthritis, lower back pain, and soft tissue swelling. No localized joint pain. Neurological: No dizziness, no convulsions, and no numbness. Psychological: Anxiety. No emotional lability. Depression. No insomnia. Not crying for no reason. Skin: No dry skin. No Ulcers. Scars. No rash. Allergic and Immunologic: Complaint of seasonal allergic reaction. Mental Status Includes: Mental Status from this encounter Description Anxiety Functional Status Includes: Functional Status from this encounter No Functional Status Recorded Physical Exam Includes: Physical Exam from this encounter Allergies Includes: Active Allergies No Known Allergies Encounters Encounter Provider Location Date Check-In Time Check-Out Time Diagnosis Physician Specified Krish Recio MD [facility] 05/13/19 25 10:43AM 11:44AM Overweight Insurance Includes: Active Insurance Policies Plan Name Member ID Group # Subscriber Relationship Effect deb Dates - [facility] [id number] Kris Kelly Self Clinical Notes Includes: Clinical Notes from this encounter No Clinical Notes Recorded
[2024-07-23 13:21] LABS: Antinuclear Antibodies (ANA) Negative (Negative)
== END 2024-07-21 23:59 | disposition home or self-care (01) ==
LOC: LAB.DROPOF 07-22 09:42
PROVIDERS: PCP Family Medicine; Visit Provider Family Medicine
DX: M54.9 Dorsalgia, unspecified (principal); M25.50 Pain in unspecified joint
CPT/HCPCS: 85025; 85651; 86038; 86140

== ENCOUNTER 2024-11-15 09:15 | Outpatient (CLI) | payer BC, SELFPAY ==
[2024-11-15 17:02] LABS: Hematocrit 42.3 % (37.0-47.0); Hemoglobin 13.4 g/dL (12.2-16.2); Immature Granulocytes % 0.5 %; Mean Corpuscular HGB Conc 31.7 g/dL (31.8-35.4); Mean Corpuscular Hemoglobin 27.6 pg (27.0-31.2); Mean Corpuscular Volume 87.0 fl (81-99); Nucleated Red Blood Cells % 0 %; Platelet Count 258 K/mm3 (142-424); Red Blood Count 4.86 M/mm3 (4.20-5.40); Red Cell Distribution Width-SD 43.9 fL; White Blood Count 6.3 K/mm3 (4.8-10.8)
[2024-11-15 17:42] LABS: Albumin Level 4.4 g/dl (3.5-5.0); Chloride 101 mmol/L (98-107); Potassium 5.0 mmoL/L (3.5-5.1); Sodium 139 mmol/L (136-145)
[2024-11-15 17:45] LABS: Alanine Aminotransferase 64 U/L (12-78); Albumin/Globulin Ratio 1.5 (1.1-1.8); Alkaline Phosphatase 105 U/L (38-126); Anion Gap 16.0 mEq/L (5-15); Aspartate Amino Transferase 45 U/L (14-36); Bilirubin,Total 0.3 mg/dl (0.2-1.3); Blood Urea Nitrogen 17 mg/dl (7-17); Carbon Dioxide 27 mmol/L (22.0-30.0); Creatinine,Serum 0.70 mg/dl (0.52-1.04); Estimated Glomerular Filt Rate 93 ml/min (>60); GFR (African American) 113 ML/MIN (>60); Globulin 2.9 g/dL (1.3-3.2); Total Protein,Serum 7.3 g/dl (6.3-8.2)
[2024-11-15 17:46] LABS: Calcium 9.2 mg/dl (8.4-10.2); Glucose 130 mg/dl (74-100)
[2024-11-15 18:18] LABS: Thyroid Stimulating Hormone 2.14 uIU/mL (0.465-4.68)
--- OUTSIDE RECORDS SUMMARY | 2024-11-16 14:33 | XMS_ITS | CCD ---
Author Name Interface, [id number] lity Address [address] [place] [address] [place] [address] Oncology an d Hematology Address [address] [place] [address] Care Team Providers Care Boxing And Pressing Supervisor Name Role Phone Silas DUENAS, Rakan Unavailable Unavailable Reason for Visit Social History Date Name Value Sex Female
--- OUTSIDE RECORDS SUMMARY | 2024-11-16 14:33 | XMS_ITS | Clinical Summary ---
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 12/25 Jennifer Ward Deborah thyroiditis Other obesity due to excess calories 397475558 (SNOMED CT) 12/21 Active 12/21 Familia Allred Simple obesity Medications Medication Instructions Start Date Stop Date Generic Name [facility] Provider SPORANOX 100 MG CAPS 2 by mouth twice a day 1 month ITRACONAZOLE [id number] David Cha CYMBALTA 30 MG CPEP one tablet daily by mouth DULOXETINE HCL 60751711741 Teresa Mart RN SINGULAIR 10 MG TABS one tablet by mouth daily MONTELUKAST SODIUM 32503061842 Teresa Mart RN CLARITIN 10 MG CAPS by mouth daily LORATADINE [id number] Teresa Mart RN GABAPENTIN 300 MG CAPS one capsule by mouth at bedtime GABAPENTIN 53384103777 Teresa Mart RN GABAPENTIN 100 MG CAPS Take one by mouth once daily at bedtime. GABAPENTIN [id number] Lamont Ramirez MD SPORANOX 100 MG CAPS 2 by mouth twice a day 1 month ITRACONAZOLE 92590111108 Lamont Ramirez MD ZOLOFT 100 MG TABS by mouth daily SERTRALINE HCL 28054685995 Linda Peralta RN TRAZODONE HCL 100 MG TABS by mouth at bedtime as needed TRAZODONE HCL 42033064901 Familia P SYNTHROID 50 MCG TABS by mouth daily LEVOTHYROXINE SODIUM 85083669457 Familia P ZOLOFT 100 MG TABS by mouth daily SERTRALINE HCL 23441364003 Familia P CLARITIN 10 MG CAPS by mouth daily LORATADINE 35396636519 Familia P DAILY MULTIVITAMIN CAPS by mouth daily MULTIPLE VITAMINS-MINERAL S 41097985993 Familia P Medications Administered No information available. Allergies, Adverse Reactions, Alerts No information available. Results Date Name Value Unit Range Flag Description Lab Report: CBC WITH AUTO DI FFERENTIAL ZZ-GE-unk 0.0 /100 WBC 0.0-0.0 GE use only - fo r [employer] import when terms are not otherwise specified IMMATUREGRAN 0.02 10*3/MM3 0.00-0.03 Immature granulocytes [#/volume] in Blood BASO# 0.02 10*3/mm3 0.00-0.20 Basophils [#/vol ume] in Blood EOS ABSLT 0.08 10*3/uL 0.10-0.30 L Eosinophi ls [#/volume] in Blood MONOSCT AUTO 0.34 10*3/uL 0.00-1.00 Monocy luz [#/volume] in Blood by Automated count LYMPHCT AUTO 1.70 10*3/mm3 0.60-4.80 Lymph ocytes [#/volume] in Blood by Automated count ABS NEUTROPH 5.96 10*3/uL 1.50-8.30 Neutro phils [#/volume] in Blood IMM GRANU % 0.2 % 0.0-0.6 Immature granulocytes/100 leukocytes in Blood % EOS AUTO 1.0 % 0.0-3.0 Eosinophil s/100 leukocytes in Blood by Automated count MONOCYTE % 4.2 % 0.0-12.0 Monocytes /100 leukocytes in Blood by Automated count LYMPHOCY BF 20.9 % 24.0-44.0 L lymphoc ytes as percent of body fluid leukocytes PMN % 73.5 % 41.0-71.0 H Neutrophils /100 leukocytes in Blood by Automated count PLATELETS 213 10*3/mm3 150-450 Platelets [#/volume] in Blood by Automated count RDW 14.9 % 11.3-14.5 H Erythrocyte distribution width [Ratio] by Automated count MCHC 32.5 G/DL 32.0-36.0 MCHC [Mass/ volume] by Automated count MCH 27.3 pg 27.0-31.0 MCH [Entiti c mass] by Automated count MCV 83.9 fL 80.0-99.0 MCV [Entiti c volume] by Automated count HCT 40.0 % 34.5-44.0 Hematocrit [Volume Fraction] of Blood by Automated count HGB 13.0 g/dL 11.5-15.5 Hemoglobin [Mass/volume] in Blood RBC 4.77 10*6/mm3 3.89-5.14 Erythrocyt es [#/volume] in Blood by Automated count WBC 8.12 10*3/mm3 3.50-10.8 0 Leukocytes [#/volume] in Blood by Automated count Lab Report: C-REACTIVE PROTE IN CRPCARDRISK 10.80 MG/DL 0.00-10.0 0 H C reactive protein [Mass/volume] in Serum or Plasma Lab Report: CK CPK 44 U/L 26-174 Creatine arianne se [Enzymatic activity/volume] in Serum or Plasma Lab Report: COMPREHENSIVE ME TABOLIC PANEL ANIONGAP 9.0 mmol/L 3.0-11.0 anion gap, serum BUN/CREAT 16.7 7.0-25.0 Urea nitrogen/Creatinine [Mass Ratio] in Serum or Plasma GFRC 117 mL/min/1. 73m2 >60 Glomerular Filtration Rate Calculation BILI TOTAL 0.3 mg/dL 0.3-1.2 Bilirubin. total [Mass/volume] in Serum or Plasma ALK PHOS 90 U/L 25-100 Alkaline belem sphatase [Enzymatic activity/volume] in Blood SGOT (AST) 20 U/L 0-33 Aspartate aminotransferase [Enzymatic activity/volume] in Serum or Plasma SGPT (ALT) 29 U/L 7-40 Alanine aminotransferase [Enzymatic activity/volume] in Serum or Plasma ALBUMIN 4.40 g/dL 3.20-4.80 Albumin [Mass/volume] in Serum or Plasma PROTEIN, TOT 7.4 g/dL 5.7-8.2 Protein [Mass/volume] in Serum or Plasma CALCIUM 9.5 mg/dL 8.7-10.4 Calcium [Moles/volume] in Serum or Plasma CO2 29.0 mmol/L 20.0-31.0 Carbon diox silvestre, total [Moles/volume] in Venous blood CHLORIDE 104 mmol/L 99-109 Chloride [Moles/volume] in Serum or Plasma POTASSIUM 4.2 mmol/L 3.5-5.5 Potassium [Moles/volume] in Serum or Plasma SODIUM 142 mmol/L 132-146 Sodium [Moles/volume] in Serum or Plasma CREATININE 0.60 mg/dL 0.60-1.30 Creatini ne [Mass/volume] in Serum or Plasma BUN 10 mg/dL 9-23 Urea nitrogen [Mass/volume] in Serum or Plasma GLUCOSE SER 88 mg/dL 70-100 Glucose [Mass/volume] in Serum or Plasma Lab Report: SEDIMENTATION RA TE ESR 23 mm/h 0-20 H Erythrocyte sedimentation rate by Westergren method Lab Report: Blastomyces Abs, Qn, DID, Histoplasma Abs, Qn, DID, Itracona ... HISTOPL AB N Neg:<1:1 Histoplas ma capsulatum mycelial phase Ab [Titer] in Serum by Complement fixation BLASTOMYC AB N Neg:<1:1 Blastom yces dermatitidis Ab [Titer] in Serum Office Visit: rm #1 MEDS REVIEW Done Documenta tion of current medications (procedure) Office Visit: rm 4 DIET REGISTERED PUBLIC HEALTH NURSE yes Dietary management education, guidance, and counseling (procedure) SMOK STATUS Never smoker Tobacco smoking status Plan of Care Type Date Detail Pending order CMP Pending order CBC with Differe ntial Pending order Continue oral an tibiotics Pending order Other Pending order Other Pending Order exclud ed from report: Pending order Other Pending order CMP Pending order CBC with Differe ntial Pending order C- reactive prot ein Pending order Sedimentation Ra te (ESR) Pending order CPK Pending order Other Pending order Other Pending order Other Pending order New Oral Antibio tic Pending order STAT Labs Pending order STAT Labs Patient education Medications Patient education WEIGHT%20MANAG EMENT Patient education WEIGHT%20MANAG EMENT Patient education WEIGHT%20MANAG EMENT Patient education WEIGHT%20MANAG EMENT Procedures Code Procedure Name Date Entry Date CPT-LAB Other CPT-70153 CMP [id number] CBC with Differential 2015 CPT-32537 C- reactive protein CPT-25203 Sedimentation Rate (ESR) 201 09/14/04 [id number], [id number] CPK CPT-LAB Other CPT-LAB Other CPT-LAB Other CPT-alia New Oral Antibiotic CPT-sl STAT Labs CPT-sl STAT Labs Vital Signs Date Name Value Unit Description BMI (Body Mass Index) 37.90 kg/m2 Bod y Mass Index (Ratio) Body Temperature 97.2 [degF] temperat ure E&M BP Diastolic 78 mm[Hg] blood pressu re, diastolic BP Systolic 128 mm[Hg] blood pressur e, systolic Heart Rate 86 /min pulse rate Respiratory Rate 16 /min respirat ory rate E&M Weight Measured 242 [lb_av] weight E& M Weight Measured 242 [lb_av] weight E& M Height 67 [in_us] height E&M Immunizations No information available. Advance Directives Directive Description Start Date NO LIVING WILL
--- OUTSIDE RECORDS SUMMARY | 2024-11-16 14:33 | XMS_ITS | CCD ---
Author Name Interface, [id number] lity Address [address] [place] [address] [place] [address] Oncology an d Hematology Address [address] [place] [address] Care Team Providers Care Operations Executive Name Role Phone Silas DUENAS, Rakan Unavailable Unavailable Reason for Visit Social History
--- OUTSIDE RECORDS SUMMARY | 2024-11-16 14:33 | XMS_ITS | Encounter Summary ---
Author Organization [facility] Address [address] [place] [address] Care Team Providers Care Sampler Ovens Name Role Phone Opal Jeronimo INDUSTRIAL TECHNOLOGIST Primary Care Provider [phone] Reason for Visit * Reason Comments Med Refill Encounter Details Date Type Department Care Team (Late st Contact Info) Description 08/14/2022 [facility] [address] [place] [address] Nan Hollis, INDUSTRIAL TECHNOLOGIST, RN PACU [address] [facility] [address] [place] [address] Deborah's thyroiditis Social History Tobacco Use Types Packs/Day Years Used Date Smoking Tobacco: Never Smokeless Tobacco: Never Alcohol Use Standard Drinks/Week Comments No 0 (1 standard drink = 0.6 oz pur e alcohol) Comments Unknown Sex and Gender Information Value Date Recorded Sex Assigned at Female 01/08/2021 11:45 PM EDT Legal Sex Female 8:46 PM EDT Gender Identity Female 01/08/2021 11:45 PM EDT Sexual Orientation Straight 01/08/2021 11 :45 PM EDT documented as of this encounter Miscellaneous Notes * Telephone Encounter - Mahsa Gates - 08/20/2022 8:44 AM EDT Patient Phone Message Reason for Call: PT has scheduled labs and would like to know if she needs to be NPO/special instructions. Please call and advise Best contact number and optimal time of day to reach caller: [phone] Note: Please do not reply to this message. Follow-up communication and further actions as a result of this message need to be communicated with the patient directly, if the patient is not active onMyChart. If the patient is active on MyChart, they will receive notification of the communication/outcome via MyChart. * Telephone Encounter - Nilsa Wallace - 08/15/2022 8:06 AM EDT Per protocol, 1 medication(s), Levothyroxine, has been approved for 30 day supply with 0 refill(s) to [facility] pharmacy. documented in this encounter Plan of Treatment Upcoming Encounters Date Type Department Care Team (Late st Contact Info) Description 12/31/2024 9:20 AM EDT Office Visit [facility] Endocrinology [address] [place] [address] Nevin Morales DO [address] [facility] [address] [place] [address] documented as of this encounter Visit Diagnoses Diagnosis Deborah's thyroiditis Chronic lymphocytic thyroiditis documented in this encounter Additional Health Concerns Assessment Noted Time A fall risk assessment has been complete d for the patient 12/05/2020 1:54 PM EDT documented as of this encounter Care Teams Sampler Ovens Relationship Specialty Start Date End Date Opal Jeronimo APRN [address] [place] [address] PCP - General 01/09/21 documented as of this encounter
--- OUTSIDE RECORDS SUMMARY | 2024-11-16 14:34 | XMS_ITS | Clinical Summary ---
Author Organization [facility] Address [address] [place] [id number] Care Team Providers Care Usps Letter Carrier Name Role Phone Pcp, No Primary Care Provider [phone] Source Comments This information has been disclosed to you from confidential records protectedfrom disclosure by state law. You shall make no further disclosure of thisinformation without the specific, written, and informed release of theindividual to whom it pertains, or as otherwise permitted by law. A generalauthorization for the release of medical or other information is not sufficientfor the purposes of therelease of HIV test results or diagnoses. [id number] Allergies Active Allergy Reactions Criticality Noted Date Comments Mushroom Anaphylaxis High Medications levothyroxine (SYNTHROID, LEVOTHROID) 50 MCG tablet Take 50 mcg by mouth every morning before breakfast. Active levocetirizine (XYZAL) 5 MG tablet Take 5 mg by mouth every evening. Active montelukast (SINGULAIR) 10 mg tablet Take 10 mg by mouth at bedtime. Active QNASL 80 mcg/actuation HFAA 09/30/19 18 Active EPINEPHrine (EPI-PEN) 0.3 mg/0.3 mL AtIn injection 09/30/19 18 Active furosemide (LASIX) 20 MG tablet TAKE 1 TABLET ONCE A DAY IN THE MORNING FOR SWELLING 2 09/27/19 18 Active ipratropium (ATROVENT) 0.03 % nasal spray 09/30/19 18 Active omeprazole (PRILOSEC) 40 MG capsuleIndication s:Helicobacter Pylori Infection Take 1 capsule (40 mg total) by mouth 2 times a day. Indications: Helicobacter Pylori Infection 28 capsule 01/30/20 18 Active bismuth subsalicylate (PEPTO-BISMOL) 262 mg Chew tabletIndications :Helicobacter Pylori Infection Chew 1 tablet by mouth 4 times a day. Indications: Helicobacter Pylori Infection 56 each 01/30/20 18 Active tetracycline (ACHROMYCIN,SUMYC IN) 500 MG capsuleIndication s:Helicobacter Pylori Infection Take 1 capsule (500 mg total) by mouth 4 times a day with meals and at bedtime. Indications: Helicobacter Pylori Infection 56 capsule 01/30/20 18 Active metroNIDAZOLE (FLAGYL) 500 MG tabletIndications :Helicobacter Pylori Infection Take 1 tablet (500 mg total) by mouth 4 times a day with meals and at bedtime. Indications: Helicobacter Pylori Infection 56 tablet 01/30/20 18 Active celecoxib (CELEBREX) 200 MG capsuleIndication s:Polyarthralgia Take 1 capsule (200 mg total) by mouth 2 times a day. 60 capsule 4 10/27/19 19 Active VITAMIN D2 50,000 unit capsule TAKE 1 CAPSULE BY MOUTH ONCE A WEEK 13 capsule 12/09/19 19 Active ergocalciferol (VITAMIN D2) 1,250 mcg (50,000 unit) capsule Take 1 capsule (50,000 Units total) by mouth once a week. 4 capsule 2 08/31/19 20 Active Active Problems Problem Noted Date Diagnosed Date Anemia 01/20/2018 Overview (01/20/2018): Added automatically from request for surgery [id number] Polyarthralgia 05/07/2017 Obesity (BMI 30-39.9) 05/07/2017 Resolved Problems Problem Noted Date Diagnosed Date Resolved Date Celiac disease 01/20/2018 06/11/2018 Overview (01/20/2018): Added automatically from request for surgery [id number] Family History Medical History Relation Comments Scleroderma Maternal Grandfather Relation Status Comments Maternal Grandfather Social History Tobacco Use Types Packs/Day Years Used Date Smoking Tobacco: Never Smokeless Tobacco: Never Tobacco Cessation:Counseling Given: No Alcohol Use Standard Drinks/Week Comments No 0 (1 standard drink = 0.6 oz pur e alcohol) PHQ-2 Answer Date Recorded PHQ-2 Score 0 01/20/2019 Comments No Sex and Gender Information Value Date Recorded Sex Assigned at Not on file Legal Sex Female 2:40 PM EDT Gender Identity Not on file Sexual Orientation Not on file Last Filed Vital Signs Vital Sign Reading Time Taken Comments Blood Pressure 122/72 06/11/2018 8:48 AM EST Pulse 78 06/11/2018 8:48 AM EST Temperature 36.5 C (97.7 F) 01/26/2018 9:30 AM EDT Respiratory Rate 16 06/11/2018 8:48 AM EST Oxygen Saturation 96% 01/26/2018 9:30 AM EDT Inhaled Oxygen Concentration 96% 01/26/2018 9 :30 AM EDT Weight 116.6 kg (257 lb) 06/11/2018 8:48 AM EST Height 170.2 cm (5' 7 ) 06/11/2018 8:48 AM EST Body Mass Index 40.25 06/11/2018 8:48 AM EST Plan of Treatment Not on file Insurance [facility] [address] Care Teams Usps Letter Carrier Relationship Specialty Start Date End Date Pcp, No No Address PCP - General Pediatrics 01/26/18
--- OUTSIDE RECORDS SUMMARY | 2024-11-16 14:34 | XMS_ITS | Clinical Summary ---
Author Organization [facility] Address [address] [place] [address] Care Team Providers Care Wood Tank Erector Name Role Phone PhaniRustytrudy Miranda APRN Primary Care Provider [phone] Allergies Active Allergy Reactions Criticality Noted Date Comments Horse Protein Anaphylaxis High 08/13/2021 Mushroom Extract Complex (Obsolete) Anaphylaxis High 12/05/2020 Medications * This document contains information received from the source organization and may not represent a complete record from that organization. montelukast (Singulair) 10 MG tablet 01/03/20 20 Active furosemide (Lasix) 40 MG tablet Take 1 tablet (40 mg) by mouth 1 (one) time each day. 11/29/19 21 Active cholecalciferol (Vitamin D-3) 125 MCG (5000 UT) capsule Take 1 capsule (5,000 Units) by mouth 1 (one) time each day. Active Pediatric Multivitamins-Iron (Flintstones Complete) 18 MG chewable tablet Chew. Acti ve cetirizine (ZyrTEC) 10 MG tablet Take 1 tablet (10 mg) by mouth 1 (one) time each day. Active ibuprofen 800 MG tablet TAKE 1 TABLET BY MOUTH WITH FOOD OR MILK NEEDED AT THE START OF A HEADACHE. 01/01/20 22 Active metoprolol succinate XL (Toprol-XL) 100 MG 24 hr tablet Take 1 tablet (100 mg) by mouth 1 (one) time each day. 08/05/19 24 Active venlafaxine XR (Effexor-XR) 150 MG 24 hr capsule Take 1 capsule (150 mg) by mouth 1 (one) time each day. 11/19/19 24 Active traZODone (Desyrel) 50 MG tablet TAKE 2.5 TO 3 TABLETS BY MOUTH ONCE DAILY 30 TO 60 MINUTES BEFORE BEDTIME 11/05/19 24 Active omeprazole (PriLOSEC) [address] capsule Take 1 capsule (20 mg) by mouth 1 (one) time each day. 10/27/19 24 Active methylPREDNISolone (Medrol Dospak) 4 MG tablets TAKE DIRECTED 12/25/19 24 Active predniSONE (Deltasone) 50 MG tablet Take 1 tablet (50 mg) by mouth 1 (one) time each day. 01/05/20 24 Active SEROquel 25 MG tablet 01/01/20 24 Active hydrOXYzine pamoate (Vistaril) 25 MG capsule TAKE 1 CAPSULE BY MOUTH EVERY 6 TO 8 HOURS NEEDED FOR ANXIETY 01/20/20 24 Active ketorolac (Toradol) 10 MG tablet TAKE 1 TABLET EVERY 8 HOURS NEEDED FOR HEADACHE 04/15/19 25 Active methocarbamol (Robaxin) 750 MG tablet Take 1 tablet by mouth every 8 hours as needed. 05/13/19 25 Active ondansetron ODT (Zofran-ODT) 4 MG disintegrating tablet DISSOLVE 1 TO 2 TABLETS IN MOUTH TWICE DAILY NEEDED FOR NAUSEA AND VOMITING 04/07/19 25 Active oxyCODONE-acetamin ophen (Percocet) 5-325 MG tablet take 1 tablet by mouth every 4 to 6 hours as needed for pain 04/02/20 24 Active promethazine (Phenergan) 25 MG suppository INSERT 1 SUPPOSITORY INTO THE RECTUM EVERY 4 TO 6 HOURS NEEDED FOR NAUSEA AND VOMITING 04/15/19 25 Active promethazine (Phenergan) 25 MG tablet TAKE 1 TABLET EVERY 6 HOURS NEEDED FOR NAUSEA AND VOMITING 04/15/19 25 Active QUEtiapine (SEROquel) 50 MG tablet Take 1 tablet by mouth nightly. 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/02/2020 Thyroid nodule 12/02/2020 Acanthosis nigricans 12/02/2020 Vitamin D deficiency 12/02/2020 Anxiety 01/03/2020 Depression 01/03/2020 Anemia 01/20/2018 Overview (12/05/2020): Added automatically from request for surgery [id number] Polyarthralgia 05/07/2017 Knee pain 01/30/2017 Resolved Problems Problem Noted Date Diagnosed Date Resolved Date Obesity (BMI 30-39.9) 05/07/20172020 Immunizations Immunization Administration Dates Next Due Hep A, Unspecified 05/26/2018,11/24/2017 Hep B, adult 06/27/2000,12/31/1999,11/16/1999 Influenza, Unspecified 01/27/2019,2017,01/14/2017,2015,01/16/2015,01/26/2014 Influenza, injectable, quadr ivalent, preservative free 12/16/2022,01/17/2022,01/15/2021 Influenza, seasonal, injecta ble, preservative free 01/19/2024 MMR 11/10/1995,03/08/1986 Tdap 05/29/2009 Family History Medical History Relation Name Comments Alcohol abuse Brother Jorge Castrejon Drug abuse Brother Jorge Castrejon Hepatitis, C Virus Brother Jorge Castrejon Mental illness Brother Jorge Castrejon Seizures Brother Jorge Oseasokveronica Alcohol abuse Father Bipin Cosmo Arthritis Father Bipin Cosmo Heart disease Father Bipin Cosmo Hyperlipidemia Father Bipin Cosmo Hypertension Father Bipin Cosmo Arthritis Maternal Grandfather Brennon Fabian Autoimmune disease Maternal Grandfather Brennon Fabian Heart disease Maternal Grandfather Brennon Fabian Kidney disease Maternal Grandfather Brennon Fabian Stroke Maternal Grandfather Brennon Fabian Anemia Maternal Grandmother Cathi Fabian Arthritis Maternal Grandmother Cathi Fabian Heart disease Maternal Grandmother Cathi Fabian Vitamin D deficiency Maternal Grandmother Cathi Fabian Alcohol abuse Mother Liz [place] Anemia Mother Liz [place] Arthritis Mother Liz [place] Asthma Mother Liz [place] Depression Mother Liz Fabian Drug abuse Mother Liz Fabian Heart disease Mother Liz Fabian Mental illness Mother July Fabian Mitral valve prolapse Mother July Fabian Seizures Mother July Fabian Vitamin D deficiency Mother July Fabian Alcohol abuse Mother's Brother 1 Cedrick [place]eral[place] Depression Mother's Brother 1 Cedrick Peralta Mental illness Mother's Brother 1 Cedrick [place] Alcohol abuse Mother's Brother 2 Lamont [place] Cancer Mother's Brother 2 Lamont [place] Miscarriages / Stillbirths Mother's Sister Eli Otero Cardiac disorder Other 1 Multiple sclerosis Other 2 Thyroid disease Other 3 Lupus Other 4 Conversions - Other Other 5 [place]lerede ma Arthritis Paternal Grandfather Jatin Cosmo Heart disease Paternal Grandfather Jatin Cosmo Hypertension Paternal Grandfather Jatin Cosmo Heart disease Sister Xochitl Yoder Mitral valve prolapse Sister Xochitl Yoder Seizures Sister Xochitl Yoder Relation Name Status Comments Brother Jorge Castrejon Father Bipin Cosmo Maternal Grandfather Brennon Peralta Maternal Grandmother Cathi Peralta Alive Mother July Fabian Mother's Brother 1 Cedrick Pearlta Alive Mother's Brother 2 Lamont [place] Alive Mother's Sister Eli Otero Alive Other 1 Other 2 Other 3 Other 4 Other 5 Paternal Grandfather Jatin Cosmo Sister Xochitl Yoder Social History Tobacco Use Types Packs/Day Years Used Date Smoking Tobacco: Never Smokeless Tobacco: Never Tobacco Cessation:Counseling Given: Not Answered Alcohol Use Standard Drinks/Week Comments No 0 (1 standard drink = 0.6 oz pur e alcohol) PHQ-2 Answer Date Recorded Patient Health Questionnaire-2 Score 1 09/30/2022 PHQ-2A Answer Date Recorded Patient Health Questionnaire-2 Score 1 09/30/2022 Comments No Sex and Gender Information Value Date Recorded Sex Assigned at Female 01/08/2021 11:45 PM EDT Legal Sex Female 8:46 PM EDT Gender Identity Female 01/08/2021 11:45 PM EDT Sexual Orientation Straight 01/08/2021 11 :45 PM EDT Last Filed Vital Signs Vital Sign Reading Time Taken Comments Blood Pressure 113/80 06/30/2024 9:29 AM EDT Pulse 74 06/30/2024 9:29 AM EDT Temperature 36.6 C (97.8 F) 12/05/2020 1:52 PM EDT Respiratory Rate 16 01/03/2020 7:53 AM EDT Oxygen Saturation - - Inhaled Oxygen Concentration - - Weight 123 kg (271 lb 13.2 oz) 06/30/2024 9:29 A M EDT Height 170.2 cm (5' 7 ) 06/30/2024 9:29 AM EDT Body Mass Index 42.57 06/30/2024 9:29 AM EDT Plan of Treatment Upcoming Encounters Date Type Department Care Team (Late st Contact Info) Description 12/31/2024 9:20 AM EDT [facility] [address] [place] [address] Nevin Morales DO [address] [place] [address] Health Maintenance Due Date Last Done Comments [facility]-HIV Screening 1984 [facility]-Hepatitis C Screening 1984 [facility]-Infant/Child/Adol SDOH Screenings 1984 [facility]-Varicella Vaccines (1 of 2 - 13+ 2-dose series) 1997 [facility]- SDOH Screenings 2002 [facility]-Adult SDOH Screenings 2002 [facility]-Zoster Vaccines (1 of 2) 11/19/2003 [facility]-Pap Smear 2005 HPV Vaccines (1 - 3-dose SCDM series) 11/19/2011 [facility]-Cervical Cancer Screening 2014 [facility]-HPV/Cotest 2014 [facility]-Depression Screening 10/01/2023 09/30/2022 [id number] Vaccine ( season) 2023 01/17/2022, 02/23/2021, 10/03/2020 [facility]-Influenza Vaccine (#1) 12/06/202401/18, 12/16/2022, 01/17/2022, Additional history exists [facility]-DTaP,Tdap,and Td Vaccines (3 - Td or Tdap) 11/07/2030 11/07/2020, 05/29/2009 [facility]-Hepatitis B Vaccines Completed 001, 12/31/1999, 11/16/1999 [facility]-Hepatitis A Vaccines Aged Out 05/26/2018, 11/06 No longer eligible based on patient's age to complete this topic [facility]-Obesity Intervention Completed 025, 02/23/2024, 01/27/2024, Additional history exists [facility]-HIB Vaccines Aged Out No longer e ligible based on patient's age to complete this topic [facility]-IPV Vaccines Aged Out No longer e ligible based on patient's age to complete this topic [facility]-Pneumococcal Vaccine: Pediatrics (0 to 5 Years) and At-Risk Patients (6 to 49 Years) Aged Out No longer eligible based on patient's age to complete this topic [facility]-Rotavirus Vaccines Aged Out No lo nger eligible based on patient's age to complete this topic Insurance Care Teams Wood Tank Erector Relationship Specialty Start Date End Date Opal Jeronimo APRN [address] [phone] PCP - General 01/09/21
--- OUTSIDE RECORDS SUMMARY | 2024-11-16 14:34 | XMS_ITS | Clinical Summary ---
Author Organization [employer] ([place], [place], [place], [place]) Address [address] [place] [address] Care Team Providers Care Consumer Safety Inspector Name Role Phone Unavailable Primary Care Provider Unavailabl e Social History Tobacco Use Types Packs/Day Years Used Date Smoking Tobacco: Never Assessed Comments Unknown Sex and Gender Information Value Date Recorded Sex Assigned at Not on file Legal Sex Female 5:43 PM CDT Gender Identity Not on file Sexual Orientation Not on file Plan of Treatment Not on file
--- OUTSIDE RECORDS SUMMARY | 2024-11-16 14:35 | XMS_ITS | Clinical Summary ---
Author Organization [facility] Address [address] [place] [address] Care Team Providers Care Track Laminating Machine Tender Name Role Phone Provider, No Known Primary Care Provider Unavail able Social History Tobacco Use Types Packs/Day Years Used Date Smoking Tobacco: Never Assessed Abuse Screen Answer Date Recorded Unsafe at Home or Work/School Not on file Feels Threatened by Someone? Not on file 02/2023 Does Anyone Keep You from Co ntacting Others or Doint Things Outside the Home? Not on file 01/15/2023 Physical Sign of Abuse Present Not on file 1 Housing Stability Answer Date Recorded Current Living Arrangements Not on file 01/05 Potentially Unsafe Housing Conditions Not on harjit e 01/15/2023 Family and Community Support Answer Larry e Recorded Help with Day-to-Day Activities Not on file 01/15/2023 Lonely or Isolated Not on file 01/15/2023 Employment Answer Date Recorded Do you want help finding or keeping work or a eduardo b? Not on file 01/15/2023 Disabilities Answer Date Recorded Concentrating, Remembering, or Making Decisions Difficulty Not on file 01/15/2023 Doing Errands Independently Difficulty Not on fi le 01/15/2023 Education Answer Date Recorded Help with school or training? Not on file Preferred Language Not on file 01/15/2023 Comments Unknown Sex and Gender Information Value Date Recorded Sex Assigned at Not on file Legal Sex Female 3:54 PM EDT Gender Identity Not on file Sexual Orientation Not on file Plan of Treatment Health Maintenance Due Date Last Done Comments ANNUAL PHYSICAL 1984 Annual Gynecologic Pelvic an d Breast Exam 1984 Pneumococcal Vaccine 0-49 (1 of 2 - PCV) 11/19/2003 TDAP/TD VACCINES (2 - Td or Tdap) 05/29/2019 010 COVID-19 Vaccine (2023-2 5 season) 2023 INFLUENZA VACCINE 01/05/2025 01/19/2024, , 01/17/2022, Additional history exists HEPATITIS C SCREENING Completed 05/20/2018 Insurance PPO Care Teams Track Laminating Machine Tender Relationship Specialty Start Date End Date Provider, No Known [facility] [place] [address] PCP - General 12/27/15
--- OUTSIDE RECORDS SUMMARY | 2024-11-16 14:35 | XMS_ITS | Referral Summary ---
Author Organization [employer] ([place], [place], [place], [place]) Address [address] [place] [address] Care Team Providers Care Water Quality Analyst Name Role Phone Unavailable Primary Care Provider [...]
[2024-11-17 08:14] LABS: FSH 6.4 mIU/mL (.)
== END 2024-11-15 23:59 | disposition home or self-care (01) ==
LOC: LAB.DROPOF 11-16 14:31
PROVIDERS: PCP Family Medicine; Visit Provider Family Medicine
DX: N92.0 Excessive and frequent menstruation with regular cycle (principal)
CPT/HCPCS: 80053; 82670; 83001; 84443; 85025